=== PATIENT | female | born 1980 | race Caucasian/White ===

== ENCOUNTER 2019-10-13 10:05 | Outpatient (CLI) | payer MEDICAID, SELFPAY ==
--- NOTE | 2019-10-13 10:43 | ECG_ITS ---
Measurements Intervals [place] Rate: 74 P: 28 [place]: 160 QRS: 73 QRSD: 97 T: 34 QT: 375 QTc: 419 SINUS RHYTHM WITH MARKED SINUS ARRHYTHMIA INTERPRETATION BASED ON A DEFAULT AGE OF 40 YEARS Compared to ECG 02/28/2018 17:38:03 No significant changes Electronically Signed On 10-13-2019 17:28:17 [employer]CTION SALES REPRESENTATIVE by Ivan Clay M.D. [email or web address]
[2019-10-13 11:30] LABS: Basophils # 0.1 10^3/uL (0.0-0.1); Basophils % 0.5 %; Eosinophils # 0.3 10^3/uL (0.0-0.8); Hematocrit 41.4 % (37.0-47.0); Hemoglobin 13.8 g/dL (11.5-15.3); Lymphocytes # 4.2 10^3/uL (0.8-4.8); Mean Corpuscular HGB Conc 33.3 g/dL (30.0-36.0); Mean Corpuscular Hemoglobin 31.1 pg (28.0-34.0); Mean Corpuscular Volume 93.2 fL (81-99); Mean Platelet Volume 11.8 fL (7.4-10.4); Monocytes # 0.7 10^3/uL (0.2-0.9); Monocytes % 7.4 %; Neutrophils # 4.5 10^3/uL (1.8-7.7); Neutrophils % 45.8 %; Nucleated Red Blood Cells % 0 %; Platelet Count 203 10^3/cmm (130-400); Red Blood Count 4.44 10^6/uL (4.1-5.3); Red Cell Distribution Width 13.8 % (12.1-15.1); White Blood Count 9.8 10^3/uL (4.0-10.0)
== END 2019-10-13 10:06 | disposition home or self-care (01) ==
LOC: RT 10:09
PROVIDERS: Family Provider Family Medicine; PCP Family Medicine; Visit Provider Specialist
DX: Z01.810 Encounter for preprocedural cardiovascular examination (principal); I49.8 Other specified cardiac arrhythmias
CPT/HCPCS: 36415; 85025; 93005

== ENCOUNTER 2019-10-19 16:58 | Outpatient (CLI) | payer MEDICAID, SELFPAY ==
--- NOTE | 2019-10-19 | XR_ITS ---
WS: [id number] FOOT RIGHT TECHNIQUE: 3 views of the right foot CLINICAL INFORMATION: FOOT PAIN,RIGHT COMPARISON: None. FINDINGS: No evidence of acute fracture or dislocation. Normal tarsal metatarsal alignment. Normal calcaneus. N ormal visualized talar dome. No acute findings. XR/XR foot RT min 3V* [id number] IMPRESSION: Normal right foot.
== END 2019-10-19 16:59 | disposition home or self-care (01) ==
PROVIDERS: Family Provider Family Medicine; PCP Family Medicine; Visit Provider Nurse Practitioner Family
DX: Z76.89 Persons encountering health services in other specified circumstances (principal)

== ENCOUNTER 2020-01-30 10:02 | Outpatient (CLI) | payer MEDICAID, SELFPAY ==
--- NOTE | 2020-01-30 | MR_ITS ---
WS: [id number] MRI HEAD WITH CONTRAST TECHNIQUE: Sagittal T1, T2 axial, T2 axial FLAIR, axial susceptibility weighted imaging, axial diffus ion weighted images, and coronal T2 images were obtained. Pre and post-T1 axial and post T1 coronal i mages. ADC and FSPGR images. CLINICAL INFORMATION: CYST AND MUCOCELE OF NOSE AND NASAL SINUS COMPARISON: CT October 27, [address] FINDINGS: No evidence of restricted diffusion to suggest acute ischemia. Ventricular system and basal cisterns are patent. Incidental slightly low-lying cerebellar tonsils. Normal fourth ventricle. Incidental par tially empty sella. No hemosiderin on the susceptibility weighted images. No suspicious intracranial signal abnormalities. Normal moon-white differentiation. No evidence of ma ss or mass effect. Proximal visualized 7th and 8th cranial nerves appear normal. Normal vascular flow voids at the skull base. Peripheral enhancing well-circumscribed ovoid lesion along the right frontal sinus extending to the f rontal ethmoidal recess most consistent with a mucocele. This measures approximately 1.4 x 0.6 x 1.0 cm (AP by transverse by craniocaudal). Suggestion of mild ostial expansion. Mild mucosal thickening i n the ethmoid air cells. Maxillary sinuses are well aerated. Mastoid air cells are well aerated. No hemosiderin on the susceptibly weighted images. No abnormal intracranial enhancement. Normal optic chiasm and pituitary infundibulum. A few incidenta l intraparotid lymph nodes. Normal visualized dural venous sinuses. MR/MR head wo/w con [id number] IMPRESSION: 1. Well-circumscribed ovoid lesion in the right frontal sinus at the frontal e thmoidal recess with peripheral enhancement and intermediate T2 hyperintensity most consistent with small frontoethmoidal mucocele. This measures approximatel y 1.4 x 0.6 x 1.0 cm AP by transverse by craniocaudal) 2. Mild mucosal thickening in the ethmoid air cells. 3. Paranasal sinuses are otherwise well aerated. 4. Mastoid air cells well aerated. 5. Incidental slightly low-lying cerebellar tonsils. Normal fourth ventricle. 6. No other suspicious intracranial signal abnormalities. 7. Incidental partially empty sella. 8. No abnormal intracranial enhancement.
== END 2020-01-30 10:03 | disposition home or self-care (01) ==
LOC: RADWPI 10:09
PROVIDERS: Family Provider Family Medicine; PCP Family Medicine; Visit Provider Specialist
DX: J34.1 Cyst and mucocele of nose and nasal sinus (principal); J34.89 Other specified disorders of nose and nasal sinuses
CPT/HCPCS: 70553; A9579

== ENCOUNTER 2020-01-31 13:57 | Emergency (ER) | payer MEDICAID, SELFPAY ==
[2020-01-31 14:28] VITALS: BP 141/88; PULSE 84; RESP 16; TEMP 36.6; O2SAT 98; BMI 42.5
[2020-01-31 15:18] LABS: Add Urine Microscopic? NO
[2020-01-31 15:22] LABS: Bilirubin Urine Neg (NEGATIVE); Blood Urine Neg (Negative); Glucose Urine UA Norm (Normal); Ketones Urine Negative (Negative); Leukocyte Esterase Urine Negative (Negative); Nitrate Urine Negative (Negative); Protein Urine Neg (Negative); Urine Appearance Clear (CLEAR); Urine Color Yellow (Yellow); Urobilinogen Urine Norm (Negative); pH Urine 6 (5-7)
[2020-01-31 15:24] LABS: HCG Qualitative Urine. Negative (Negative)
[2020-01-31 15:49] LABS: Basophils # 0.1 10^3/uL (0.0-0.1); Basophils % 0.6 %; Eosinophils # 0.4 10^3/uL (0.0-0.8); Eosinophils % 3.1 %; Hematocrit 46.6 % (37.0-47.0); Lymphocytes # 4.1 10^3/uL (0.8-4.8); Lymphocytes % 34.7 %; Mean Corpuscular HGB Conc 32.2 g/dL (30.0-36.0); Mean Corpuscular Hemoglobin 30.6 pg (28.0-34.0); Mean Corpuscular Volume 95.1 fL (81-99); Mean Platelet Volume 11.6 fL (7.4-10.4); Monocytes # 0.9 10^3/uL (0.2-0.9); Monocytes % 7.8 %; Neutrophils # 6.3 10^3/uL (1.8-7.7); Neutrophils % 53.6 %; Nucleated Red Blood Cells % 0 %; Platelet Count 251 10^3/cmm (130-400); Red Cell Distribution Width 13.6 % (12.1-15.1); White Blood Count 11.7 10^3/uL (4.0-10.0)
[2020-01-31 16:09] LABS: Alanine Aminotransferase 91 U/L (0-33); Albumin Level 4.9 g/dL (3.5-5.2); Alkaline Phosphatase 101 IU/L (35-105); Anion Gap 15.9 (5-19); Aspartate Amino Transferase 66 U/L (0-32); Blood Urea Nitrogen 11 mg/dL (6-20); Calcium 9.8 mg/dL (8.5-10.5); Carbon Dioxide 28 mmol/L (22-29); Chloride 100 mmol/L (98-107); Glomerular Filtration Rate 138.1 mL/min (90-130); Glucose 114 mg/dL (65-115); Lipase 50 U/L (13-60); Osmolality Calculated 287 mOsm/kg (285-295); Potassium 3.9 mmol/L (3.5-5.1); Sodium 140 mmol/L (136-145); Total Bilirubin 0.2 mg/dL (0.15-1.2); Total Protein 7.9 g/dL (6.6-8.7)
== END 2020-01-31 18:06 | disposition left against medical advice (07) ==
LOC: ER 14:12
PROVIDERS: Family Medicine; Emergency Provider Physician Assistant; PCP Family Medicine
DX: Z53.21 Procedure and treatment not carried out due to patient leaving prior to being seen by health care provider (principal)
CPT/HCPCS: 36415; 80053; 81003; 81025; 83690; 85025; 99281; 99282

== ENCOUNTER 2020-02-02 11:53 | Outpatient (CLI) | payer MEDICAID, SELFPAY ==
--- NOTE | 2020-02-02 | CT_ITS ---
WS: [id number] CT ABDOMEN AND PELVIS WITH CONTRAST HISTORY: RLQ PAIN, prior hysterectomy and appendectomy. TECHNIQUE: Imaging performed of the abdomen and pelvis with IV contrast. Single phase imaging of the abdomen. Coronal and sagittal reformats are submitted. All CT scans at [facility] use at least one of these dose optimization techniques: automated exposure control; mA and/or kV adjustment per patient size (includes targeted exams where dose is matched to clinical indication); or iterativ e reconstruction. IV CONTRAST: Omnipaque 300; 95 mL IV. Oral contrast: None. Patient refused. DLP: 1768.58 mGy.cm COMPARISON: 01/09/2018 Lower thorax: Lung bases are clear. Heart is normal size. No hiatal hernia. Liver/biliary system: Marked hepatomegaly and hepatic steatosis. Variable density throughout the live r consistent with hepatic steatosis and areas of sparing. No bile duct dilatation. Portal vein is enh ancing normally. Gallbladder: Normal. No gallstones or wall thickening. No pericholecystic fluid. Pancreas: Normal. Spleen: Normal. Adrenal glands: Normal. Right kidney: Normal. There is a calcification in the retroperitoneum on the RIGHT. Believe this is a ssociated with the gonadal vein and not the ureter. Ureter is small caliber and is posterior to the v ein. Left kidney: Normal. Aorta: Normal. Lymphadenopathy: None. Free fluid: None. GI tract: Prior appendectomy. Abdominal wall: Unremarkable abdominal wall. No hernia. Pelvis: Normal. Bones: Unremarkable. CT/CT abdomen pelvis w con* [id number] IMPRESSION: 1. Prior appendectomy and hysterectomy. 2. Marked hepatomegaly and hepatic steatosis. 3. No renal obstruction.
[2020-02-02] MEDS: iohexol 300 mg/mL 100 mL Btl IV (14:15)
== END 2020-02-02 11:54 | disposition home or self-care (01) ==
PROVIDERS: PCP Family Medicine; Visit Provider Nurse Practitioner Family
DX: R10.31 Right lower quadrant pain (principal); R16.0 Hepatomegaly, not elsewhere classified; K76.0 Fatty (change of) liver, not elsewhere classified
CPT/HCPCS: 74177

== ENCOUNTER 2020-02-10 17:27 | Emergency (ER) | payer MEDICAID, SELFPAY ==
[2020-02-10 17:35] VITALS: BP 146/94; PULSE 91; RESP 14; TEMP 36.7; O2SAT 97; BMI 42.8
--- NOTE | 2020-02-10 17:44 | ED_ITS ---
HPI - Abdominal Pain General: Chief Complaint: Abdominal Pain Stated Complaint: abd pain Time Seen by Provider: 02/10/20 17:41 History of Present Illness: HPI narrative: Patient is a 39-year-old female who comes to the ED for abdominal pain. Patient has a past surgical history of a hysterectomy and appendectomy. Patient says that abdominal pain started about 2 weeks ago. Patient recently had a CT done back on February 01 and the report showed Marked hepatomegaly and hepatic steatosis. Patient describes pain as a burning sensation that is located in the right lower quadrant. Abdominal pain continues to progress since it started 2 weeks ago. She rates the pain currently a 7 out of 10. She states pain gets worse when she gets up and moves around. She has taken hydrocodone and naproxen to try to help with pain she says it has not provided any relief. Patient denies any fever, chills, nausea, vomiting, cough, chest pain, shortness of breath, change in stool, constipation, diarrhea, blood in stool, dysuria, hematuria, vaginal discharge. Associated Symptoms: Denies chills, constipation, diarrhea, dysuria, fever(s), hematochezia, hematuria, nausea and vomiting Review of Systems Const: Denies: fever(s), chills or fatigue Eyes: Denies: change in vision or eye discomfort ENMT: Denies: throat pain, odynophagia, nasal discharge or nasal congestion Card: Denies: chest pain, palpitations, edema, swelling of feet/ankles, dyspnea on exertion or orthopnea Resp: Denies: dyspnea, productive cough or non-productive cough GI: Reports: abdominal pain (RLQ); Denies: nausea, vomiting, diarrhea, constipation or hematochezia : Denies: flank pain, dysuria or hematuria Musc: Denies: neck pain, back pain or extremity swelling Skin/Breast: Denies: rash or new lesions Neuro: Denies: headache(s), numbness in extremities or weakness in extremities PFSH ED PFSH: Social History Smoking and tobacco status: current every day smoker Physical Exam Const: COMMON NORMALS: no acute distress, patient oriented x3 and alert GENERAL APPEARANCE: cooperative and comfortable HENMT: COMMON NORMALS: normocephalic HEAD & SCALP: normocephalic MOUTH: Normal oral and palatal mucosa present THROAT: posterior oropharynx normal and uvula midline Eye: COMMON NORMALS: Equal, round and reactive pupils present PUPIL: Yes Equal, round and reactive pupils present Neck/C-Spine: COMMON NORMALS: supple GENERAL: Yes normal visual inspection Resp: COMMON NORMALS: normal respiratory effort, No retractions, No use of accessory muscles and clear to auscultation bilaterally AUSCULTATION: clear to auscultation bilaterally Cardio: COMMON NORMALS: regular rate, regular rhythm, S1 normal heart sound present, S2 normal heart sound present, No gallops present (Cardio), No clicks present (Cardio), No murmurs present (Cardio) and Peripheral pulses 2+ throughout RATE: regular rate RHYTHM: regular rhythm HEART SOUNDS: S1 normal heart sound present and S2 normal heart sound present PERIPHERAL PULSES: Peripheral pulses 2+ throughout GI: COMMON NORMALS: Normal to inspection, nondistended, normoactive bowel sounds present, Soft to palpation and no masses INSPECTION: Yes central obesity AUSCULTATION: Yes normoactive bowel sounds PALPATION: Yes Soft to palpation and Yes Tenderness to palpation present (GI) Details: RLQ (mcburney's point tenderness, with no rebound tenderness. ) OTHER: Negative Irene sign. No epigastric tenderness. : COMMON NORMALS: Yes no CVA tenderness BLADDER/KIDNEY EXAM: Yes no CVA tenderness Back/Pelvis: COMMON NORMALS: no CVA tenderness Extremity: COMMON NORMALS: normal to inspection, capillary refill normal and no pedal edema Neuro: COMMON NORMALS: patient oriented x3 SENSORIUM/ORIENTATION: Yes alert GAIT: Yes Normal gait present Skin: COMMON NORMALS: no rashes or lesions noted GENERAL SKIN EXAM: no rashes or lesions noted and dry skin Course Vital Signs: Vital signs: Vital Signs Temperature 98.1 F 02/10/20 17:35 Pulse Rate 87 02/10/20 22:23 Respiratory Rate 18 02/10/20 22:23 Blood Pressure 148/74 02/10/20 22:23 Pulse Oximetry 98 02/10/20 22:23 MDM - Abdominal Pain MDM Narrative: Medical decision making narrative: Patient is a 39-year-old female comes to the ED with right lower quadrant pain. Patient has a surgical history of an appendectomy and hysterectomy. White blood cell count was 11.4 and CMP, lipase and urinalysis were unremarkable. CT of the abdomen showed no acute findings but noted the liver. Patient was told to follow-up with PCP in 7 days for reevaluation. Patient can return to ED if symptoms worsen. Patient understood and agreed with plan. Lab Data: Attestation: I reviewed the patient's lab results. Labs: Lab Results 02/10/20 02/10/20 02/10/20 Range/Units 17:53 17:53 17:53 WBC 11.4 H (4.0-10.0) 10^3/ uL RBC 4.67 (4.1-5.3) 10^6/u L Hgb 14.5 (11.5-15.3) g/dL Hct 44.2 (37.0-47.0) % MCV 94.6 (81-99) fL MCH 31.0 (28.0-34.0) pg MCHC 32.8 (30.0-36.0) g/dL RDW 13.4 (12.1-15.1) % Plt Count 265 (130-400) 10^3/c mm MPV 11.8 H (7.4-10.4) fL Neut % (Auto) 50.5 % Lymph % (Auto) 38.3 % [place] % (Auto) 7.3 % Eos % (Auto) 3.1 % Baso % (Auto) 0.5 % Neut # (Auto) 5.8 (1.8-7.7) 10^3/u L Lymph # (Auto) 4.4 (0.8-4.8) 10^3/u L [place] # (Auto) 0.8 (0.2-0.9) 10^3/u L Eos # (Auto) 0.4 (0.0-0.8) 10^3/u L Baso # (Auto) 0.1 (0.0-0.1) 10^3/u L Nucleated RBC % (a uto) 0 % Nucleated RBCs # 0.0 /100WBC Sodium 140 (136-145) mmol/L Potassium 4.1 (3.5-5.1) mmol/L Chloride 98 (98-107) mmol/L Carbon Dioxide 26 (22-29) mmol/L Anion Gap 20.1 H (5-19) BUN 8 (6-20) mg/dL Creatinine 0.5 (0.5-0.9) mg/dL GFR Calculation 138.1 H (90-130) mL/min Glucose 111 (65-115) mg/dL Calculated Osmolal ity 287 (285-295) mOsm/k g Calcium 9.5 (8.5-10.5) mg/dL Total Bilirubin 0.2 (0.15-1.2) mg/dL AST 55 H (0-32) U/L ALT 86 H (0-33) U/L Alkaline Phosphata se 98 (35-105) IU/L Total Protein 7.5 (6.6-8.7) g/dL Albumin 4.9 (3.5-5.2) g/dL Globulin 2.6 (1.3-4.6) g/dL Lipase 49 (13-60) U/L HCG, Qual Negative (Negative) Urine Color (Yellow) Urine Appearance (CLEAR) Urine pH (5-7) Ur Specific Gravit y (1.005-1.030) Urine Protein (Negative) Urine Glucose (UA) (Normal) Urine Ketones (Negative) Urine Blood (Negative) Urine Nitrate (Negative) Urine Bilirubin (NEGATIVE) Urine Urobilinogen (Negative) mg/dL Ur Leukocyte Cecy ase (Negative) Urine RBC (0-2) /hpf Urine WBC (0-5) /hpf Ur Squamous Epith Cells (0-5) Ur Transition Epit h Cell /hpf Urine Bacteria (NONE) Urine Yeast 02/10/20 Range/Units 18:56 WBC (4.0-10.0) 10^3/ uL RBC (4.1-5.3) 10^6/u L Hgb (11.5-15.3) g/dL Hct (37.0-47.0) % MCV (81-99) fL MCH (28.0-34.0) pg MCHC (30.0-36.0) g/dL RDW (12.1-15.1) % Plt Count (130-400) 10^3/c mm MPV (7.4-10.4) fL Neut % (Auto) % Lymph % (Auto) % [place] % (Auto) % Eos % (Auto) % Baso % (Auto) % Neut # (Auto) (1.8-7.7) 10^3/u L Lymph # (Auto) (0.8-4.8) 10^3/u L [place] # (Auto) (0.2-0.9) 10^3/u L Eos # (Auto) (0.0-0.8) 10^3/u L Baso # (Auto) (0.0-0.1) 10^3/u L Nucleated RBC % (a uto) % Nucleated RBCs # /100WBC Sodium (136-145) mmol/L Potassium (3.5-5.1) mmol/L Chloride (98-107) mmol/L Carbon Dioxide (22-29) mmol/L Anion Gap (5-19) BUN (6-20) mg/dL Creatinine (0.5-0.9) mg/dL GFR Calculation (90-130) mL/min Glucose (65-115) mg/dL Calculated Osmolal ity (285-295) mOsm/k g Calcium (8.5-10.5) mg/dL Total Bilirubin (0.15-1.2) mg/dL AST (0-32) U/L ALT (0-33) U/L Alkaline Phosphata se (35-105) IU/L Total Protein (6.6-8.7) g/dL Albumin (3.5-5.2) g/dL Globulin (1.3-4.6) g/dL Lipase (13-60) U/L HCG, Qual (Negative) Urine Color Yellow (Yellow) Urine Appearance Hazy A (CLEAR) Urine pH 6.5 (5-7) Ur Specific Gravit y 1.015 (1.005-1.030) Urine Protein Neg (Negative) Urine Glucose (UA) Norm (Normal) Urine Ketones Negative (Negative) Urine Blood Neg (Negative) Urine Nitrate Negative (Negative) Urine Bilirubin Neg (NEGATIVE) Urine Urobilinogen Norm (Negative) mg/dL Ur Leukocyte Cecy ase Negative (Negative) Urine RBC 0-4 H (0-2) /hpf Urine WBC None (0-5) /hpf Ur Squamous Epith Cells 15-25 H (0-5) Ur Transition Epit h Cell 0-4 /hpf Urine Bacteria 1+ H (NONE) Urine Yeast 1+ H Imaging Data ^: CT Abd/Pel: Attestation: I personally reviewed and interpreted this imaging study as follows: Radiologist's impression: [address] [address] [address] Scan Report Signed Patient: Marlene Schroeder Unit #: [id number] : 1980 Age/Sex: 39 / F ADM Date: 02/10/20 Loc: ER Room/Bed: Attending Dr: Ordering Provider/Ordering MD: Jori Jordan Date of Service: 02/10/20 Procedure(s): CT abdomen pelvis w con* [id number] Accession Number(s): [id number] Report Number: [id number] PROCEDURE INFORMATION: Exam: CT Abdomen And Pelvis With Contrast Exam date and time: 02/10/2020 7:39 PM Age: 39 years old Clinical indication: Abdominal pain; Localized; Right lower quadrant (rlq); Prior surgery; Surgery type: Hysto, appy; Additional info: Rlq abdominal pain TECHNIQUE: Imaging protocol: Computed tomography of the abdomen and pelvis with intravenous contrast. Radiation optimization: All CT scans at this facility use at least one of these dose optimization techniques: automated exposure control; mA and/or kV adjustment per patient size (includes targeted exams where dose is matched to clinical indication); or iterative reconstruction. Contrast material: OMNI 300; Contrast volume: 95 ml; Contrast route: IV; COMPARISON: CT abdomen pelvis w con* [id number] 02/02/2020 2:06 PM RADIATION DOSE METRICS: Total DLP: 1895.55 mGy-cm FINDINGS: Liver: Geographic fatty infiltration of the liver. Multiple subcentimeter nodular densities in the right liver lobe are unchanged. Gallbladder and bile ducts: Normal. No calcified stones. No ductal dilation. Pancreas: Normal. No ductal dilation. Spleen: Normal size spleen with splenules. Adrenals: Normal. No mass. Kidneys and ureters: Normal. No hydronephrosis. Stomach and bowel: Unremarkable. No obstruction. No mucosal thickening. Appendix: The appendix is not visualized. No secondary signs of appendicitis. Intraperitoneal space: Unremarkable. No free air. No significant fluid collection. Vasculature: Unremarkable. No abdominal aortic aneurysm. Lymph nodes: Subcentimeter retroperitoneal lymph nodes are most likely reactive. Bladder: Unremarkable as visualized. Reproductive: The uterus and left ovary are absent. Probable retained small right ovary. Bones/joints: Unremarkable. No acute fracture. Soft tissues: Unremarkable. CT/CT abdomen pelvis w con* [id number] IMPRESSION: 1. No acute abnormality identified in the abdomen or pelvis. 2. Subcentimeter nodules in the right liver lobe are too small to characterize but most likely benign in this age group. In a low-risk patient, this lesion is most likely to be benign and no further follow-up is recommended. In a high-risk patient, recommend follow-up MRI in 3-6 months (or earlier if warranted by the patient's specific clinical circumstances). 3. Geographic fatty infiltration of the liver. Radiation Dose CTDIVOL = (mGy): DLP = 1895.55 (mGy-cm) Dictated By: Patrice Hardy Signed By: Patrice Hardy Signed Date/Time: 02/10/202041 DD/ 39 Discharge Plan Discharge Patient Disposition: Home, Self-Care Clinical Impression: Abdominal pain, RLQ Condition: Stable Prescriptions: No Action meloxicam 7.5 mg tablet 7.5 mg PO DAILY Qty: 30 RF: 3 quetiapine 25 mg tablet See Rx Instructions .ROUTE .COMPLEX RF: 0 hydrocodone-acetaminophen 10-325 mg tablet 1 tab PO TID PRN (Reason: Pain) RF: 0 tramadol 50 mg tablet See Rx Instructions .ROUTE .COMPLEX RF: 0 naproxen 500 mg Tablet,Delayed Release (Dr/Ec) 500 mg PO BID PRN (Reason: Pain) RF: 0 furosemide 20 mg tablet 20 mg PO PRN PRN (Reason: Edema) RF: 0 ProAir HFA 90 mcg/actuation HFA aerosol inhaler 1 - 2 puff INHALATION Q4H PRN (Reason: Shortness Of Breath) RF: 0 Premarin 0.3 mg tablet 0.3 mg PO DAILY RF: 0 aripiprazole 10 mg tablet 10 mg PO DAILY RF: 0 levocetirizine 5 mg tablet 5 mg PO DAILY RF: 0 desvenlafaxine succinate 50 mg tablet extended release 24 hr 50 mg PO DAILY RF: 0 28-800 mg-mcg Tablet 1 tab PO DAILY RF: 0 Discharge Orders: Discharge Order (Routine); Ordered 02/10/20 Ordered By: Jori Jordan Referrals: Sage Mckeon MD [Primary Care Provider] - Discharge Diet: Regular Discharge Activity: Increase activity as tolerated Patient Instructions: Abdominal Pain (ED) Activity Restrictions/Additional Instructions: Follow-up with your PCP in 5 to 7 days for reevaluation. Take Tylenol or ibuprofen to help with pain. Drink plenty of fluids and stay hydrated. Discharge Date/Time: 02/10/20 22:24 Coding Level of Care Code ED Knot Tier for Mindi Fwd Exam Comprehensive
[2020-02-10 18:07] LABS: Basophils # 0.1 10^3/uL (0.0-0.1); Basophils % 0.5 %; Eosinophils # 0.4 10^3/uL (0.0-0.8); Eosinophils % 3.1 %; Hematocrit 44.2 % (37.0-47.0); Hemoglobin 14.5 g/dL (11.5-15.3); Lymphocytes # 4.4 10^3/uL (0.8-4.8); Lymphocytes % 38.3 %; Mean Corpuscular HGB Conc 32.8 g/dL (30.0-36.0); Mean Corpuscular Volume 94.6 fL (81-99); Mean Platelet Volume 11.8 fL (7.4-10.4); Monocytes # 0.8 10^3/uL (0.2-0.9); Monocytes % 7.3 %; Neutrophils # 5.8 10^3/uL (1.8-7.7); Neutrophils % 50.5 %; Nucleated Red Blood Cells % 0 %; Platelet Count 265 10^3/cmm (130-400); Red Blood Count 4.67 10^6/uL (4.1-5.3); Red Cell Distribution Width 13.4 % (12.1-15.1); White Blood Count 11.4 10^3/uL (4.0-10.0)
[2020-02-10 18:24] LABS: HCG, Serum Qual Negative (Negative)
[2020-02-10] MEDS: metoclopramide 5 mg/mL SDV 2 mL 10 MG IVP (19:06)
[2020-02-10 19:08] VITALS: RESP 18; O2SAT 98
[2020-02-10] MEDS: morphine 4 mg/mL SDV 1 mL IVP ×2 (19:08→20:07)
[2020-02-10] MEDS: sodium chloride 0.9% 1,000 ML 999 ML IV (19:09)
[2020-02-10 19:14] LABS: Alanine Aminotransferase 86 U/L (0-33); Albumin Level 4.9 g/dL (3.5-5.2); Alkaline Phosphatase 98 IU/L (35-105); Anion Gap 20.1 (5-19); Aspartate Amino Transferase 55 U/L (0-32); Blood Urea Nitrogen 8 mg/dL (6-20); Calcium 9.5 mg/dL (8.5-10.5); Carbon Dioxide 26 mmol/L (22-29); Chloride 98 mmol/L (98-107); Globulin 2.6 g/dL (1.3-4.6); Glomerular Filtration Rate 138.1 mL/min (90-130); Glucose 111 mg/dL (65-115); Lipase 49 U/L (13-60); Osmolality Calculated 287 mOsm/kg (285-295); Potassium 4.1 mmol/L (3.5-5.1); Sodium 140 mmol/L (136-145); Total Bilirubin 0.2 mg/dL (0.15-1.2); Total Protein 7.5 g/dL (6.6-8.7)
--- NOTE | 2020-02-10 19:30 | CTR_ITS ---
PROCEDURE INFORMATION: Exam: CT Abdomen And Pelvis With Contrast Exam date and time: 02/10/2020 7:39 PM Age: 39 years old Clinical indication: Abdominal pain; Localized; Right lower quadrant (rlq); Prior surgery; Surgery type: Hysto, appy; Additional info: Rlq abdominal pain TECHNIQUE: Imaging protocol: Computed tomography of the abdomen and pelvis with intravenous contrast. Radiation optimization: All CT scans at this facility use at least one of these dose optimization techniques: automated exposure control; mA and/or kV adjustment per patient size (includes targeted exams where dose is matched to clinical indication); or iterative reconstruction. Contrast material: OMNI 300; Contrast volume: 95 ml; Contrast route: IV; COMPARISON: CT abdomen pelvis w con* [id number] 02/02/2020 2:06 PM RADIATION DOSE METRICS: Total DLP: 1895.55 mGy-cm FINDINGS: Liver: Geographic fatty infiltration of the liver. Multiple subcentimeter nodular densities in the right liver lobe are unchanged. Gallbladder and bile ducts: Normal. No calcified stones. No ductal dilation. Pancreas: Normal. No ductal dilation. Spleen: Normal size spleen with splenules. Adrenals: Normal. No mass. Kidneys and ureters: Normal. No hydronephrosis. Stomach and bowel: Unremarkable. No obstruction. No mucosal thickening. Appendix: The appendix is not visualized. No secondary signs of appendicitis. Intraperitoneal space: Unremarkable. No free air. No significant fluid collection. Vasculature: Unremarkable. No abdominal aortic aneurysm. Lymph nodes: Subcentimeter retroperitoneal lymph nodes are most likely reactive. Bladder: Unremarkable as visualized. Reproductive: The uterus and left ovary are absent. Probable retained small right ovary. Bones/joints: Unremarkable. No acute fracture. Soft tissues: Unremarkable. CT/CT abdomen pelvis w con* [id number] IMPRESSION: 1. No acute abnormality identified in the abdomen or pelvis. 2. Subcentimeter nodules in the right liver lobe are too small to characterize but most likely benign in this age group. In a low-risk patient, this lesion is most likely to be benign and no further follow-up is recommended. In a high-risk patient, recommend follow-up MRI in 3-6 months (or earlier if warranted by the patient's specific clinical circumstances). 3. Geographic fatty infiltration of the liver. Radiation Dose CTDIVOL = (mGy): DLP = 1895.55 (mGy-cm)
[2020-02-10 19:55] LABS: Bilirubin Urine Neg (NEGATIVE); Blood Urine Neg (Negative); Glucose Urine UA Norm (Normal); Ketones Urine Negative (Negative); Leukocyte Esterase Urine Negative (Negative); Nitrate Urine Negative (Negative); Protein Urine Neg (Negative); Specific Gravity, Urine 1.015 (1.005-1.030); Urine Appearance Hazy (CLEAR); Urine Color Yellow (Yellow); Urobilinogen Urine Norm (Negative); pH Urine 6.5 (5-7)
[2020-02-10 19:56] LABS: Add Urine Culture? No; Bacteria Urine 1+; RBC Urine 0-4 /hpf (0-2); Squamous Epithelial Cell Urine 15-25 (0-5); Transitional Epi Cells Urine 0-4 /hpf
[2020-02-10 20:07] VITALS: RESP 18; O2SAT 98
[2020-02-10] MEDS: iohexol 300 mg/mL 100 mL Btl IV (20:21)
[2020-02-10 22:23] VITALS: BP 148/74; PULSE 87; RESP 18; O2SAT 98
== END 2020-02-10 22:24 | disposition home or self-care (01) ==
PROVIDERS: Emergency Provider Physician Assistant; PCP Family Medicine
DX: R10.31 Right lower quadrant pain (principal); F17.210 Nicotine dependence, cigarettes, uncomplicated
CPT/HCPCS: 12345; 74177; 80053; 81001; 83690; 84703; 85025; 96361; 96374; 96375; 96376; 99282; 99283; J2270; J2765; J7030; Q9967

== ENCOUNTER 2020-07-20 12:23 | Outpatient (CLI) | payer MEDICAID, SELFPAY ==
--- NOTE | 2020-07-20 12:28 | CT_ITS ---
WS: [id number] CT ABDOMEN PELVIS TECHNIQUE: Contrast-enhanced CT of the abdomen and pelvis with coronal and sagittal reformatted image s. CLINICAL INFORMATION: RECTAL BLEEDING, PINKY LOWER QUADRANT ABD PAIN COMPARISON: CT February 10, 2020 DLP: 1133.[address] scans at [facility] use at least one of these dose optimization techniques: automat ed exposure control; mA and/or kV adjustment per patient size (includes targeted exams where dose is matched to clinical indication); or iterative reconstruction. FINDINGS: Hepatomegaly. Diffuse fatty infiltration liver. Normal portal vein and splenic vein. No suspicious he patic lesions are visualized today. Normal parenchymal enhancement. Lung bases are well aerated. Panc reas appears normal. Small splenule. Normal spleen. Normal GE junction. Adrenal glands are normal. No rmal renal parenchymal enhancement. No hydronephrosis. A few sigmoid diverticuli. No evidence of diverticulitis. No free fluid in the abdomen or pelvis. Nor mal caliber abdominal aorta. Retroaortic left renal vein. No periaortic lymphadenopathy. No pelvic or inguinal lymphadenopathy.Prior postoperative changes hysterectomy. Prior postoperative appendectomy. Normal lumbar spine. CT/CT abdomen pelvis w con* [id number] IMPRESSION: 1. Hepatomegaly with diffuse fatty infiltration of the liver. No suspicious he patic lesions today. 2. Normal caliber abdominal aorta. 3. A few sigmoid diverticuli. No evidence of acute diverticulitis. 4. No evidence of small or large bowel obstruction. 5. No free fluid in the abdomen or pelvis. 6. No hydronephrosis in either kidney. 7. No abdominal or pelvic lymphadenopathy. 8. Tiny fat-containing umbilical hernia.. 9. Prior hysterectomy and appendectomy.
[2020-07-20] MEDS: iohexol 300 mg/mL 50 mL Btl PO (13:25)
[2020-07-20] MEDS: iohexol 300 mg/mL 100 mL Btl IV (14:11)
== END 2020-07-20 12:24 | disposition home or self-care (01) ==
LOC: RADWPI 12:26
PROVIDERS: PCP Family Medicine; Visit Provider Family Medicine
DX: K62.5 Hemorrhage of anus and rectum (principal); R10.31 Right lower quadrant pain; R10.32 Left lower quadrant pain; R16.0 Hepatomegaly, not elsewhere classified; K76.0 Fatty (change of) liver, not elsewhere classified; K57.30 Diverticulosis of large intestine without perforation or abscess without bleeding; K42.9 Umbilical hernia without obstruction or gangrene; Z90.710 Acquired absence of both cervix and uterus; Q42.8 Congenital absence, atresia and stenosis of other parts of large intestine
CPT/HCPCS: 74177; Q9967

== ENCOUNTER 2020-07-29 18:43 | Emergency (ER) | payer MEDICAID, SELFPAY ==
[2020-07-29 18:48] VITALS: BP 163/107; PULSE 83; RESP 16; TEMP 36.3; O2SAT 98; BMI 40.5
--- NOTE | 2020-07-29 20:23 | ED_ITS ---
HPI - Abdominal Pain General: Chief Complaint: Abdominal Pain Stated Complaint: lower abd pain Time Seen by Provider: 07/29/20 20:10 Source: patient Mode of arrival: ambulatory Limitations: no limitations History of Present Illness: HPI narrative: 39-year-old female states has been having lower abdominal pain over the last 2 weeks along with bloody bowel movements. She states she has not had a bloody bowel movement in the last 3 days. She had a CT scan last week that showed no acute findings. She is scheduled in [address] Tariq of surgery. She states she has had increasing pain over the last 2 days sharp in nature and rates it a 8 out of 10. States it is worse with movement. Associated Symptoms: Denies chills, dysuria and fever(s) Review of Systems Const: Denies: fever(s), chills, body aches or change in appetite Eyes: Denies: blurry vision or eye discomfort ENMT: Denies: throat pain or dental pain Card: Denies: chest pain Resp: Denies: dyspnea GI: Reports: abdominal pain : Denies: dysuria Musc: Denies: neck pain or back pain Skin/Breast: Denies: rash Neuro: Denies: headache(s) Psych: Denies: depression Malik/Lymph: Denies: easy bruising All/Imm: Denies: urticaria PFSH ED PFSH: Social History Smoking and tobacco status: current every day smoker Physical Exam Const: COMMON NORMALS: no acute distress, patient oriented x3 and healthy appearing HENMT: COMMON NORMALS: normocephalic and atraumatic HEAD & SCALP: normocephalic and atraumatic Eye: COMMON NORMALS: Equal, round and reactive pupils present and EOMs intact bilaterally PUPIL: Yes Equal, round and reactive pupils present Neck/C-Spine: COMMON NORMALS: full ROM and supple Chest: COMMONS NORMALS: normal inspection of the chest and normal palpation of entire chest wall Resp: COMMON NORMALS: normal respiratory effort, No retractions, No use of accessory muscles and clear to auscultation bilaterally AUSCULTATION: clear to auscultation bilaterally Cardio: COMMON NORMALS: regular rate, regular rhythm and No murmurs present (Cardio) RATE: regular rate RHYTHM: regular rhythm GI: COMMON NORMALS: Normal to inspection, nondistended, normoactive bowel sounds present, Soft to palpation and no masses PALPATION: Yes Soft to palpation and Yes Tenderness to palpation present (GI) Details: RLQ Extremity: COMMON NORMALS: normal to inspection and full ROM Neuro: COMMON NORMALS: patient oriented x3, moves all extremities and no focal motor deficits Psych: COMMON NORMALS: mental status grossly normal, Normal thought process present and cooperative THOUGHT PROCESS: Normal thought process present Skin: COMMON NORMALS: no rashes or lesions noted and no wounds GENERAL SKIN EXAM: no rashes or lesions noted Course Vital Signs: Vital signs: Vital Signs Temperature 97.3 F L 07/29/20 18:48 Pulse Rate 83 07/29/20 18:48 Respiratory Rate 17 07/29/20 22:10 Blood Pressure 163/107 07/29/20 18:48 Pulse Oximetry 98 07/29/20 18:48 MDM - Abdominal Pain MDM Narrative: Medical decision making narrative: Marlene presents here with abdominal pain that been going on for weeks. She is well-appearing here her pain is improved. CT scan shows an enteritis with no acute findings. Patient's blood work here is normal as well. She has no bloody stools here and her blood count is normal. We will place her on Bentyl along with Phenergan and she is to follow-up with Dr. Tariq in 5 days for her colonoscopy. She is to return if worsening. She understands and agrees to plan. Lab Data: Labs: Lab Results 07/29/20 07/29/20 07/29/20 Range/Units 20:44 20:55 20:55 WBC 12.1 H (4.0-10.0) 10^3/ uL RBC 5.08 (4.1-5.3) 10^6/u L Hgb 15.6 H (11.5-15.3) g/dL Hct 47.7 H (37.0-47.0) % MCV 93.9 (81-99) fL MCH 30.7 (28.0-34.0) pg MCHC 32.7 (30.0-36.0) g/dL RDW 13.9 (12.1-15.1) % Plt Count 262 (130-400) 10^3/c mm MPV 11.8 H (7.4-10.4) fL Neut % (Auto) 54.3 % Lymph % (Auto) 35.8 % [place] % (Auto) 7.2 % Eos % (Auto) 2.1 % Baso % (Auto) 0.4 % Neut # (Auto) 6.58 (1.8-7.7) 10^3/u L Lymph # (Auto) 4.3 (0.8-4.8) 10^3/u L [place] # (Auto) 0.9 (0.2-0.9) 10^3/u L Eos # (Auto) 0.3 (0.0-0.8) 10^3/u L Baso # (Auto) 0.1 (0.0-0.1) 10^3/u L Nucleated RBC % (a uto) 0 % Nucleated RBCs # 0.0 /100WBC Sodium 140 (136-145) mmol/L Potassium 4.0 (3.5-5.1) mmol/L Chloride 103 (98-107) mmol/L Carbon Dioxide 28 (22-29) mmol/L Anion Gap 13.0 (5-19) BUN 11 (6-20) mg/dL Creatinine 0.6 (0.5-0.9) mg/dL GFR Calculation 111.9 (90-130) mL/min Glucose 109 (65-115) mg/dL Calculated Osmolal ity 290 (285-295) mOsm/k g Calcium 9.7 (8.5-10.5) mg/dL Total Bilirubin 0.2 (0.15-1.2) mg/dL AST 36 H (0-32) U/L ALT 50 H (0-33) U/L Alkaline Phosphata se 88 (35-105) IU/L Total Protein 7.6 (6.6-8.7) g/dL Albumin 4.6 (3.5-5.2) g/dL Globulin 3.0 (1.3-4.6) g/dL Lipase 39 (13-60) U/L Urine Color Yellow (Yellow) Urine Appearance Clear (CLEAR) Urine pH 6.0 (5-7) Ur Specific Gravit y 1.020 (1.005-1.030) Urine Protein 1+ H (Negative) Urine Glucose (UA) Norm (Normal) Urine Ketones Negative (Negative) Urine Blood 2+ H (Negative) Urine Nitrate Negative (Negative) Urine Bilirubin Neg (Negative) Urine Urobilinogen Norm (Negative) mg/dL Ur Leukocyte Cecy ase Negative (Negative) Urine RBC 0-4 H (0-2) /hpf Urine WBC 0-4 H (0-5) /hpf Ur Squamous Epith Cells 10-15 H (0-5) /hpf Amorphous Sediment Not Reportable Urine Bacteria 1+ H (NONE) /hpf Urine Mucus 2+ /hpf Imaging Data ^: CT Abd/Pel: Radiologist's impression: [address] [address] [address] Scan Report Signed Patient: Marlene Schroeder Unit #: [id number] : 1980 Age/Sex: 39 / F ADM Date: 07/29/20 Loc: ER Room/Bed: Attending Dr: Ordering Provider/Ordering MD: Satish Mitchell MD Date of Service: 07/29/20 Procedure(s): CT abdomen pelvis w con* [id number] Accession Number(s): [id number] Report Number: [id number] PROCEDURE INFORMATION: Exam: CT Abdomen And Pelvis With Contrast Exam date and time: 07/29/2020 9:20 PM Age: 39 years old Clinical indication: Other: Blood in stool; Abdominal pain; Localized; Lower; Prior surgery; Surgery type: Hyst, adhesions, appy; Additional info: Abd pain TECHNIQUE: Imaging protocol: Computed tomography of the abdomen and pelvis with intravenous contrast. Radiation optimization: All CT scans at this facility use at least one of these dose optimization techniques: automated exposure control; mA and/or kV adjustment per patient size (includes targeted exams where dose is matched to clinical indication); or iterative reconstruction. Contrast material: OMNI 300; Contrast volume: 95 ml; Contrast route: INTRAVENOUS (IV); COMPARISON: CT abdomen pelvis w con* [id number] 07/20/2020 2:07 PM RADIATION DOSE METRICS: Total DLP (mGy-cm): 1564.21 FINDINGS: Liver: Hepatic steatosis. Gallbladder and bile ducts: Normal. No calcified stones. No ductal dilation. Pancreas: Normal. No ductal dilation. Spleen: Normal. No splenomegaly. Adrenal glands: Normal. No mass. Kidneys and ureters: Normal. No hydronephrosis. Stomach and bowel: Prominent fluid in the small bowel suggestive of an enteritis in the appropriate clinical setting. Appendix: No evidence of appendicitis. Intraperitoneal space: Unremarkable. No free air. No significant fluid collection. Vasculature: Unremarkable. No abdominal aortic aneurysm. Lymph nodes: Unremarkable. No enlarged lymph nodes. Urinary bladder: Unremarkable as visualized. Reproductive: Unremarkable as visualized. Bones/joints: Unremarkable. No acute fracture. Soft tissues: Unremarkable. CT/CT abdomen pelvis w con* [id number] IMPRESSION: 1. Prominent fluid in the small bowel suggestive of an enteritis in the appropriate clinical setting. 2. Hepatic steatosis. Discharge Plan Discharge Patient Disposition: Home Clinical Impression: Abdominal pain Qualifiers: Abdominal location: generalized Qualified Code(s): R10.84 - Generalized abdominal pain Condition: Stable Prescriptions: New dicyclomine 20 mg tablet 20 mg PO TID PRN (Reason: abdominal pain) Qty: 20 RF: 0 promethazine 25 mg tablet 25 mg PO TID PRN (Reason: nausea and vomiting) Qty: 20 RF: 0 No Action meloxicam 7.5 mg tablet 7.5 mg PO DAILY Qty: 30 RF: 3 hydrocodone-acetaminophen 10-325 mg tablet 1 tab PO TID PRN (Reason: Pain) RF: 0 tramadol 50 mg tablet See Rx Instructions .ROUTE .COMPLEX RF: 0 naproxen 500 mg Tablet,Delayed Release (Dr/Ec) 500 mg PO BID PRN (Reason: Pain) RF: 0 furosemide 20 mg tablet 20 mg PO PRN PRN (Reason: Edema) RF: 0 albuterol sulfate [ProAir HFA] 90 mcg/actuation HFA aerosol inhaler 1 - 2 puff INHALATION Q4H PRN (Reason: Shortness Of Breath) RF: 0 Premarin 0.3 mg tablet 0.3 mg PO DAILY RF: 0 levocetirizine 5 mg tablet 5 mg PO DAILY RF: 0 cetirizine 10 mg tablet 10 mg PO DAILY RF: 0 DOK 100 mg capsule 200 mg PO BEDTIME RF: 0 azelastine 137 mcg (0.1 %) aerosol,spray See Rx Instructions .ROUTE .COMPLEX RF: 0 potassium chloride 1 tab PO DAILY RF: 0 vitamin E 1 tab PO DAILY RF: 0 Discharge Orders: Discharge Order (Routine); Ordered 07/29/20 Ordered By: Korby Stephen Referrals: Sage Mckeon MD [Primary Care Provider] - 1-3 days Discharge Diet: Advance as tolerated Discharge Activity: Resume usual activity Patient Instructions: Abdominal Pain (ED) Coding Level of Care Code ED Steam Brush Operator for Chg Fwd Exam Comprehensive
[2020-07-29] MEDS: promethazine 25 mg/mL SDV 1 mL IM (20:40)
[2020-07-29 20:54] VITALS: RESP 17
[2020-07-29] MEDS: morphine 4 mg/mL SDV 1 mL IVP (20:54)
[2020-07-29 21:17] LABS: Basophils # 0.1 10^3/uL (0.0-0.1); Basophils % 0.4 %; Eosinophils # 0.3 10^3/uL (0.0-0.8); Eosinophils % 2.1 %; Hematocrit 47.7 % (37.0-47.0); Hemoglobin 15.6 g/dL (11.5-15.3); Lymphocytes # 4.3 10^3/uL (0.8-4.8); Lymphocytes % 35.8 %; Mean Corpuscular HGB Conc 32.7 g/dL (30.0-36.0); Mean Corpuscular Hemoglobin 30.7 pg (28.0-34.0); Mean Corpuscular Volume 93.9 fL (81-99); Mean Platelet Volume 11.8 fL (7.4-10.4); Monocytes # 0.9 10^3/uL (0.2-0.9); Monocytes % 7.2 %; Neutrophils # 6.58 10^3/uL (1.8-7.7); Neutrophils % 54.3 %; Nucleated Red Blood Cells % 0 %; Platelet Count 262 10^3/cmm (130-400); Red Blood Count 5.08 10^6/uL (4.1-5.3); Red Cell Distribution Width 13.9 % (12.1-15.1); White Blood Count 12.1 10^3/uL (4.0-10.0)
--- NOTE | 2020-07-29 21:18 | CTR_ITS ---
PROCEDURE INFORMATION: Exam: CT Abdomen And Pelvis With Contrast Exam date and time: 07/29/2020 9:20 PM Age: 39 years old Clinical indication: Other: Blood in stool; Abdominal pain; Localized; Lower; Prior surgery; Surgery type: Hyst, adhesions, appy; Additional info: Abd pain TECHNIQUE: Imaging protocol: Computed tomography of the abdomen and pelvis with intravenous contrast. Radiation optimization: All CT scans at this facility use at least one of these dose optimization techniques: automated exposure control; mA and/or kV adjustment per patient size (includes targeted exams where dose is matched to clinical indication); or iterative reconstruction. Contrast material: OMNI 300; Contrast volume: 95 ml; Contrast route: INTRAVENOUS (IV); COMPARISON: CT abdomen pelvis w con* [id number] 07/20/2020 2:07 PM RADIATION DOSE METRICS: Total DLP (mGy-cm): 1564.21 FINDINGS: Liver: Hepatic steatosis. Gallbladder and bile ducts: Normal. No calcified stones. No ductal dilation. Pancreas: Normal. No ductal dilation. Spleen: Normal. No splenomegaly. Adrenal glands: Normal. No mass. Kidneys and ureters: Normal. No hydronephrosis. Stomach and bowel: Prominent fluid in the small bowel suggestive of an enteritis in the appropriate clinical setting. Appendix: No evidence of appendicitis. Intraperitoneal space: Unremarkable. No free air. No significant fluid collection. Vasculature: Unremarkable. No abdominal aortic aneurysm. Lymph nodes: Unremarkable. No enlarged lymph nodes. Urinary bladder: Unremarkable as visualized. Reproductive: Unremarkable as visualized. Bones/joints: Unremarkable. No acute fracture. Soft tissues: Unremarkable. CT/CT abdomen pelvis w con* [id number] IMPRESSION: 1. Prominent fluid in the small bowel suggestive of an enteritis in the appropriate clinical setting. 2. Hepatic steatosis. Radiation Dose CTDIVOL = (mGy): DLP = 1564.21 (mGy-cm)
[2020-07-29 21:34] LABS: Urine Appearance Clear (CLEAR); Urine Color Yellow (Yellow)
[2020-07-29 21:34] LABS: Alanine Aminotransferase 50 U/L (0-33); Albumin Level 4.6 g/dL (3.5-5.2); Alkaline Phosphatase 88 IU/L (35-105); Aspartate Amino Transferase 36 U/L (0-32); Blood Urea Nitrogen 11 mg/dL (6-20); Calcium 9.7 mg/dL (8.5-10.5); Carbon Dioxide 28 mmol/L (22-29); Chloride 103 mmol/L (98-107); Glomerular Filtration Rate 111.9 mL/min (90-130); Glucose 109 mg/dL (65-115); Lipase 39 U/L (13-60); Osmolality Calculated 290 mOsm/kg (285-295); Sodium 140 mmol/L (136-145); Total Bilirubin 0.2 mg/dL (0.15-1.2); Total Protein 7.6 g/dL (6.6-8.7)
[2020-07-29 21:35] LABS: Add Urine Culture? No; Add Urine Microscopic? YES; Bacteria Urine 1+ /hpf; Bilirubin Urine Neg (Negative); Blood Urine 2+ (Negative); Glucose Urine UA Norm (Normal); Ketones Urine Negative (Negative); Leukocyte Esterase Urine Negative (Negative); Mucus Urine 2+ /hpf; Nitrate Urine Negative (Negative); Protein Urine 1+ (Negative); RBC Urine 0-4 /hpf (0-2); Urobilinogen Urine Norm (Negative); WBC Urine 0-4 /hpf (0-5)
[2020-07-29] MEDS: iohexol 300 mg/mL 100 mL Btl IV (22:00)
[2020-07-29 22:10] VITALS: RESP 17
[2020-07-29] MEDS: HYDROmorphone 1 mg/mL INJ 1 mL IVP (22:10)
[2020-07-29 22:22] VITALS: PULSE 67; RESP 18; O2SAT 97
[2020-07-30 07:26] LABS: HCG Qualitative Urine. Negative (Negative)
== END 2020-07-29 22:43 | disposition home or self-care (01) ==
PROVIDERS: Emergency Provider Emergency Medicine; PCP Family Medicine
DX: R10.84 Generalized abdominal pain (principal); F17.210 Nicotine dependence, cigarettes, uncomplicated
CPT/HCPCS: 12345; 74177; 80053; 81001; 81025; 83690; 85025; 96372; 96374; 96375; 99283; J1170; J2270; J2550; Q9967

== ENCOUNTER → 2020-09-03 17:56 | Outpatient (BNVA) | payer MEDICAID, SELFPAY | PROVIDERS: PCP Family Medicine; Visit Provider Surgery | DX: K92.1 Melena (principal) | CPT/HCPCS: 87635 ==

== ENCOUNTER 2020-09-05 19:49 | Emergency (ER) | payer MEDICAID, SELFPAY ==
[2020-09-05 19:57] VITALS: BP 139/100; PULSE 83; RESP 18; TEMP 36.1; O2SAT 96; BMI 39.1
--- NOTE | 2020-09-05 20:03 | ED_ITS ---
HPI - Skin/Abscess/Foreign Bdy General: Chief complaint: Skin/Abscess/Foreign Body Stated complaint: POSS CYST L LEG Time Seen by Provider: 09/05/20 20:03 History of Present Illness: HPI narrative: Patient is a 39-year-old female comes to the ED with possible abscess on left groin. Patient says she noticed some discomfort yesterday in that region, but today she woke up and felt a small tender nodule in the left groin. Denies any fever, chills, chest pain, shortness of breath, nausea/vomiting, bladder or bowel symptoms. Patient says she has a history of past staph infections. Associated symptoms: Deny chills, fever(s), nausea or vomiting Review of Systems Const: Denies: fever(s), chills or fatigue Eyes: Denies: change in vision or eye discomfort ENMT: Denies: throat pain, odynophagia, nasal discharge or nasal congestion Card: Denies: chest pain, palpitations, edema, swelling of feet/ankles, dyspnea on exertion or orthopnea Resp: Denies: dyspnea, productive cough or non-productive cough GI: Denies: abdominal pain, nausea, vomiting, diarrhea, constipation or hematochezia : Denies: flank pain, dysuria or hematuria Musc: Denies: neck pain, back pain or extremity swelling Skin/Breast: Reports: new lesions (Small tender nodule on left groin.); Denies: rash Neuro: Denies: headache(s), numbness in extremities or weakness in extremities PFSH ED PFSH: Medical History Fibromyalgia Surgical History History of appendectomy History of colonoscopy with polypectomy History of endoscopic sinus surgery History of hysterectomy History of oral surgery History of tonsillectomy Family History Denies family history of Anesthesia complication Bleeding disorder Social History Smoking and tobacco status: current every day smoker Physical Exam Const: COMMON NORMALS: no acute distress, patient oriented x3 and alert GENERAL APPEARANCE: cooperative and comfortable HENMT: COMMON NORMALS: normocephalic HEAD & SCALP: normocephalic MOUTH: Normal oral and palatal mucosa present THROAT: posterior oropharynx normal and uvula midline Neck/C-Spine: COMMON NORMALS: supple GENERAL: Yes normal visual inspection Resp: COMMON NORMALS: normal respiratory effort, No retractions, No use of accessory muscles and clear to auscultation bilaterally AUSCULTATION: clear to auscultation bilaterally Cardio: COMMON NORMALS: regular rate, regular rhythm, S1 normal heart sound present, S2 normal heart sound present, No gallops present (Cardio), No clicks present (Cardio), No murmurs present (Cardio) and Peripheral pulses 2+ throughout RATE: regular rate RHYTHM: regular rhythm HEART SOUNDS: S1 normal heart sound present and S2 normal heart sound present PERIPHERAL PULSES: Peripheral pulses 2+ throughout GI: COMMON NORMALS: Normal to inspection, nondistended, normoactive bowel sounds present, Soft to palpation, non-tender and no masses PALPATION: Yes Soft to palpation : COMMON NORMALS: Yes no CVA tenderness BLADDER/KIDNEY EXAM: Yes no CVA tenderness Back/Pelvis: COMMON NORMALS: no CVA tenderness Extremity: NARRATIVE EXTREMITY EXAM: Pmaela the nurse was the industrial custodian during my exam of the lesion. Lesion is located in the left groin area. Small 5 mm tender nodule. With some warmth and erythema present. No purulent drainage or bauman seen. Findings suggestive of a skin abscess developing. GENERAL: Yes normal exam except as noted Neuro: COMMON NORMALS: patient oriented x3 and moves all extremities SENSORIUM/ORIENTATION: Yes alert Skin: NARRATIVE SKIN EXAM: Pamela the nurse was the industrial custodian during my exam of the lesion. Lesion is located in the left groin area. Small 5 mm tender nodule. With some warmth and erythema present. No purulent drainage or bauman seen. Findings suggestive of a skin abscess developing. GENERAL SKIN EXAM: dry skin Course ED course: Pamela the nurse was present in the industrial custodian in the room during the exam of the lesion located in patient's left groin. Vital Signs: Vital signs: Vital Signs Temperature 97.0 F L 09/05/20 19:57 Pulse Rate 83 09/05/20 19:57 Respiratory Rate 18 09/05/20 19:57 Blood Pressure 139/100 09/05/20 19:57 Pulse Oximetry 96 09/05/20 19:57 MDM - Skin/Abscess/Foreign Bdy MDM Narrative: Medical decision making narrative: Patient is a 39-year-old female has a small tender nodule to the left groin approximately 5 mm in size. It is superficial with some erythema and warmth upon palpation. At this time I do not think it needs to be lanced so I am going to put her on some antibiotics and have her do warm compresses. I instructed her to return to the ED to get it lanced possibly if it worsens after 3 days of being on the antibiotics. Discharge Plan Discharge Patient Disposition: Home Clinical Impression: Abscess of skin or subcutaneous tissue Qualifiers: Site of cutaneous abscess: other site Qualified Code(s): L02.818 - Cutaneous abscess of other sites Condition: Stable Prescriptions: New clindamycin HCl 150 mg capsule 300 mg PO QID 7 Days Qty: 56 RF: 0 No Action ciprofloxacin HCl [Cipro] 500 mg tablet 500 mg PO BID Qty: 14 RF: 0 metronidazole [Flagyl] 500 mg tablet 500 mg PO TID Qty: 21 RF: 0 lactulose 10 gram/15 mL (15 mL) solution 10 g PO BID Qty: 750 RF: 1 meloxicam 7.5 mg tablet 7.5 mg PO DAILY Qty: 30 RF: 3 hydrocodone-acetaminophen 10-325 mg tablet 1 tab PO TID PRN (Reason: Pain) RF: 0 tramadol 50 mg tablet See Rx Instructions .ROUTE .COMPLEX RF: 0 naproxen 500 mg Tablet,Delayed Release (Dr/Ec) 500 mg PO BID PRN (Reason: Pain) RF: 0 furosemide 20 mg tablet 20 mg PO PRN PRN (Reason: Edema) RF: 0 albuterol sulfate [ProAir HFA] 90 mcg/actuation HFA aerosol inhaler 1 - 2 puff INHALATION Q4H PRN (Reason: Shortness Of Breath) RF: 0 Premarin 0.3 mg tablet 0.3 mg PO DAILY RF: 0 levocetirizine 5 mg tablet 5 mg PO DAILY RF: 0 cetirizine 10 mg tablet 10 mg PO DAILY RF: 0 DOK 100 mg capsule 200 mg PO BEDTIME RF: 0 azelastine 137 mcg (0.1 %) aerosol,spray See Rx Instructions .ROUTE .COMPLEX RF: 0 potassium chloride 1 tab PO DAILY RF: 0 vitamin E 1 tab PO DAILY RF: 0 dicyclomine 20 mg tablet 20 mg PO TID PRN (Reason: abdominal pain) Qty: 20 RF: 0 promethazine 25 mg tablet 25 mg PO TID PRN (Reason: nausea and vomiting) Qty: 20 RF: 0 Discharge Orders: Discharge ED (Routine); Ordered 09/05/20 Ordered By: Jori Jordan Referrals: Sage Mckeon MD [Primary Care Provider] - Discharge Diet: Regular Discharge Activity: Resume usual activity Patient Instructions: Skin Abscess, Skin Abscess - Antibiotics Activity Restrictions/Additional Instructions: Follow-up with medical provider as directed. Return to ED for possible lancing of abscess if after 3 days of being on antibiotic symptoms worsen. Take medications as prescribed. Apply warm compresses. return to the ER or your medical provider if condition worsens. Please read and understand discharge instructions. If any questions, please ask. Coding Level of Care Code ED Wireless Engineer for Mindi Fwd Exam Comprehensive
[2020-09-05] MEDS: clindamycin 150 mg Capsule 300 MG PO (20:32)
[2020-09-05 20:44] VITALS: BP 142/96; PULSE 80; RESP 18; O2SAT 97
--- NOTE | 2020-09-05 20:45 | PC.NURSE ---
i agree with this assessment
== END 2020-09-05 20:46 | disposition home or self-care (01) ==
PROVIDERS: Emergency Provider Physician Assistant; PCP Family Medicine
DX: L02.818 Cutaneous abscess of other sites (principal); F17.210 Nicotine dependence, cigarettes, uncomplicated
CPT/HCPCS: 12345; 99281; 99282

== ENCOUNTER 2020-11-02 09:58 | Outpatient (CLI) | payer MEDICAID, SELFPAY ==
--- NOTE | 2020-11-02 10:03 | MR_ITS ---
WS: [id number] MRI CERVICAL SPINE NONCONTRAST HISTORY: CERVICALGIA COMPARISON: 03/17/2013 Technique: Multiplanar, multisequence noncontrast imaging of the cervical spine. This study is significantly limited by motion artifact. Patient was unable to remain still. Mild LEFT convex curvature of the cervical spine. Posterior alignment is within normal limits. No gross abnormality within the signal of the cord but there is significant motion artifact limiting evaluation of the cord. Mild ectopia of the cerebellar tonsils. Craniocervical junction, C1 and C2 relationship, odontoid process and soft tissues are normal. C2-C3: Normal. C3-C4: Normal. C4-C5: Moderate size LEFT paracentral disc protrusion contacting but not displacing the thecal sac. N o significant stenosis. C5-C6: Small osteophyte or disc protrusion RIGHT foramen with mild stenosis and narrowing. C6-C7: Normal. C7-T1: Normal. Paraspinal soft tissue are normal. Empty sella turcica. MR/MR cervical spin wo con* [id number] IMPRESSION: 1. Quality of this MRI is significantly limited by motion artifact. 2. Moderate-sized LEFT paracentral disc protrusion at C4-5 with minimal contac t on the cervical cord with no displacement. 3. Mild cerebellar tonsillar ectopia.
== END 2020-11-02 09:59 | disposition home or self-care (01) ==
LOC: RADWPI 10:00
PROVIDERS: PCP Family Medicine; Visit Provider Anesthesiology Pain Medicine
DX: Q04.8 Other specified congenital malformations of brain (principal); M50.221 Other cervical disc displacement at C4-C5 level
CPT/HCPCS: 72141

== ENCOUNTER 2021-02-09 09:14 | Outpatient (RCR) | payer MEDICAID, SELFPAY | END 2021-02-21 23:59 | disposition home or self-care (01) | LOC: SPT 09:14 | PROVIDERS: PCP Family Medicine; Referring Provider Anesthesiology Pain Medicine; Visit Provider Anesthesiology Pain Medicine | DX: M54.2 Cervicalgia (principal); G89.4 Chronic pain syndrome | CPT/HCPCS: 97110; 97161 ==

== ENCOUNTER 2021-02-10 16:56 | Emergency (ER) | payer MEDICAID, SELFPAY ==
[2021-02-10 17:06] VITALS: BP 148/89; PULSE 79; RESP 18; TEMP 36.8; O2SAT 95; BMI 42.1
--- NOTE | 2021-02-10 17:13 | USR_ITS ---
PROCEDURE INFORMATION: Exam: US Duplex Left Lower Extremity Veins, Limited Exam date and time: 02/10/2021 5:14 PM Age: 40 years old Clinical indication: Pain; Leg, lower; Left; Additional info: Left leg swelling and pain TECHNIQUE: Imaging protocol: Real-time Duplex ultrasound of the Left Lower Extremity with 2-D moon scale, color Doppler flow and spectral waveform analysis with image documentation. Limited exam focused on the left lower extremity veins. COMPARISON: US ROR venous duplex 10/07/2020 2:40 PM FINDINGS: Left deep veins: Unremarkable. The common femoral, femoral, proximal profunda femoral and popliteal veins are patent without thrombus. Normal Doppler waveforms. Normal compressibility and/or augmentation response. Left superficial veins: Unremarkable. Saphenofemoral junction is patent without thrombus. Soft tissues: Unremarkable. US/CV venous duplex [id number] IMPRESSION: No evidence of deep vein thrombosis.
--- NOTE | 2021-02-10 19:50 | W.ED.EXTPRO ---
HPI - Extremity Problem General: Chief complaint: Extremity Problem,Nontraumatic Stated complaint: LEFT LEG SWOLLEN PT WORRIED BOUT BLOOD CLOT Time Seen by Provider: 02/10/21 17:56 History of Present Illness: HPI Narrative: Patient is a 40-year-old female comes to the ED with left leg swelling and pain. Symptoms started 2 days ago. Patient says she got the Covid 19 vaccine 2 days ago and after she got her left leg got a little red swollen and tender. She was sent here by her doctor to get evaluated for possible blood clot. Patient denies any shortness of breath, chest pain or hemoptysis. Associated symptoms: Deny chest pain, fever(s) or rash Review of Systems Const: Denies: fever(s), chills or fatigue Eyes: Denies: change in vision or eye discomfort ENMT: Denies: throat pain, odynophagia, nasal discharge or nasal congestion Card: Denies: chest pain, palpitations, edema, swelling of feet/ankles, dyspnea on exertion or orthopnea Resp: Denies: dyspnea, productive cough or non-productive cough GI: Denies: abdominal pain, nausea, vomiting, diarrhea, constipation or hematochezia : Denies: flank pain, dysuria or hematuria Musc: Reports: extremity pain (Left lower leg pain/calf tenderness) and extremity swelling (Left lower leg); Denies: neck pain or back pain Skin/Breast: Denies: rash or new lesions Neuro: Denies: headache(s), numbness in extremities or weakness in extremities PFS ED PFSH: Medical History Fibromyalgia Surgical History History of appendectomy History of colonoscopy with polypectomy History of endoscopic sinus surgery History of hysterectomy History of oral surgery History of tonsillectomy Family History Denies family history of Anesthesia complication Bleeding disorder Social History Smoking and tobacco status: current every day smoker Physical Exam Const: COMMON NORMALS: no acute distress, patient oriented x3 and alert GENERAL APPEARANCE: cooperative and comfortable NUTRITIONAL APPEARANCE: overweight HENMT: COMMON NORMALS: normocephalic HEAD & SCALP: normocephalic MOUTH: Normal oral and palatal mucosa present THROAT: posterior oropharynx normal and uvula midline Neck/C-Spine: COMMON NORMALS: supple GENERAL: Yes normal visual inspection Resp: COMMON NORMALS: normal respiratory effort, No retractions, No use of accessory muscles and clear to auscultation bilaterally AUSCULTATION: clear to auscultation bilaterally Cardio: COMMON NORMALS: regular rate, regular rhythm, S1 normal heart sound present, S2 normal heart sound present, No gallops present (Cardio), No clicks present (Cardio), No murmurs present (Cardio) and Peripheral pulses 2+ throughout RATE: regular rate RHYTHM: regular rhythm HEART SOUNDS: S1 normal heart sound present and S2 normal heart sound present PERIPHERAL PULSES: Peripheral pulses 2+ throughout GI: COMMON NORMALS: Normal to inspection, nondistended, normoactive bowel sounds present, Soft to palpation, non-tender and no masses PALPATION: Yes Soft to palpation : COMMON NORMALS: Yes no CVA tenderness BLADDER/KIDNEY EXAM: Yes no CVA tenderness Back/Pelvis: COMMON NORMALS: no CVA tenderness Extremity: GENERAL: Yes normal exam except as noted, Yes calf tenderness (left calf tenderness) and Yes edema (left leg trace pitting edema) Neuro: COMMON NORMALS: patient oriented x3 and moves all extremities SENSORIUM/ORIENTATION: Yes alert Skin: GENERAL SKIN EXAM: dry skin Course Vital Signs: Vital signs: Vital Signs Temperature 98.2 F 02/10/21 20:15 Pulse Rate 100 02/10/21 20:15 Respiratory Rate 18 02/10/21 20:15 Blood Pressure 150/99 02/10/21 20:15 Pulse Oximetry 95 02/10/21 20:15 MDM - Extremity (Nontraumatic) MDM Narrative: Medical decision making narrative: Patient is a 40-year-old female comes to the ED with left lower extremity pain and swelling. Patient indicated that she took the COVID-19 vaccination right before left leg pain and swelling started. She denies any chest pain, shortness of breath or hemoptysis. Exam shows some trace pitting edema of the left leg and some left calf tenderness. Ultrasound venous duplex of left lower extremity showed no DVTs or blood clots seen. Patient diagnosed with leg edema and told to elevate lower extremity and wear compression stockings to help with swelling. Return to ED precautions given. Follow-up with PCP in 7 to 10 days for reevaluation. Patient understood agree with plan. Imaging Data^: US Vascular: Attestation: I personally reviewed and interpreted this imaging study as follows: Radiologist's impression: Left lower extremity venous duplex?prelim report no DVTs or blood clots seen. Discharge Plan Discharge Patient Disposition: Home Clinical Impression: Leg edema, left Condition: Stable Prescriptions: No Action lactulose 10 gram/15 mL solution See Rx Instructions .ROUTE .COMPLEX Qty: 750 RF: 0 hydrocodone-acetaminophen 10-325 mg tablet 1 tab PO TID PRN (Reason: Pain) RF: 0 tramadol 50 mg tablet See Rx Instructions .ROUTE .COMPLEX RF: 0 naproxen 500 mg Tablet,Delayed Release (Dr/Ec) 500 mg PO BID PRN (Reason: Pain) RF: 0 furosemide 20 mg tablet 20 mg PO PRN PRN (Reason: Edema) RF: 0 albuterol sulfate [ProAir HFA] 90 mcg/actuation HFA aerosol inhaler 1 - 2 puff INHALATION Q4H PRN (Reason: Shortness Of Breath) RF: 0 Premarin 0.3 mg tablet 0.3 mg PO DAILY RF: 0 cetirizine 10 mg tablet 10 mg PO DAILY RF: 0 azelastine 137 mcg (0.1 %) aerosol,spray See Rx Instructions .ROUTE .COMPLEX RF: 0 potassium chloride 1 tab PO DAILY RF: 0 aripiprazole 2 mg tablet 2 mg PO DAILY RF: 0 desvenlafaxine succinate 50 mg tablet extended release 24 hr 50 mg PO DAILY RF: 0 Discharge Orders: Discharge ED (Routine); Ordered 02/10/21 Ordered By: Jori Jordan Referrals: Sage Mckeon MD [Primary Care Provider] - Discharge Diet: Regular Discharge Activity: Increase activity as tolerated Patient Instructions: Leg Edema (ED) Activity Restrictions/Additional Instructions: Follow-up with medical provider as directed in 7 to 10 days for reevaluation. Rest, elevate and ice left leg to help with symptoms. Wear compression stockings to help with leg swelling. Return to the ER or your medical provider if condition worsens. Please read and understand discharge instructions. Thank you for choosing [facility] for your healthcare needs today. Please realize this is an emergency room and that we are providing you with a medical screening exam and this may not be complete and all inclusive of all the testing and or work up that you may need to determine your ailment or severity of your illness. It is very important that you follow up as instructed or that you return to the Emergency Department should you have concerns or if your condition changes or worsens in any way. Coding Level of Care Code ED Sales Support Manager for Mindi Chavez Exam Comprehensive
[2021-02-10 20:00] VITALS: PULSE 86
[2021-02-10 20:11] VITALS: BP 150/99; PULSE 100; RESP 18; TEMP 36.8; O2SAT 95
[2021-02-10 20:15] VITALS: BP 150/99; PULSE 100; RESP 18; TEMP 36.8; O2SAT 95
== END 2021-02-10 20:16 | disposition home or self-care (01) ==
PROVIDERS: Emergency Provider Physician Assistant; PCP Family Medicine
DX: R60.0 Localized edema (principal); F17.210 Nicotine dependence, cigarettes, uncomplicated
CPT/HCPCS: 93971; 99282

== ENCOUNTER 2021-02-22 06:00 | Outpatient (RCR) | payer MEDICAID, SELFPAY | END 2021-03-23 23:59 | disposition home or self-care (01) | LOC: SPT 06:00 | PROVIDERS: PCP Family Medicine; Referring Provider Anesthesiology Pain Medicine; Visit Provider Anesthesiology Pain Medicine | DX: M54.2 Cervicalgia (principal); G89.4 Chronic pain syndrome | CPT/HCPCS: 97110 ==

== ENCOUNTER 2021-03-21 12:35 | Emergency (ER) | payer MEDICAID, SELFPAY ==
[2021-03-21 13:27] VITALS: BP 147/89; PULSE 81; RESP 18; TEMP 36.7; O2SAT 95; BMI 40.9
--- NOTE | 2021-03-21 15:48 | ED_ITS ---
HPI - Extremity Problem General: Chief complaint: Extremity Problem,Nontraumatic Stated complaint: LEFT SHOULDER PAIN Time Seen by Provider: 03/21/21 15:38 History of Present Illness: HPI Narrative: Patient is a 40-year-old female comes to the ED with left shoulder pain. Patient says she has been suffering from left shoulder pain for the past 2 months. Patient says that the pain initially started 2 months ago when she was playing fetch with her dog and threw this rubber tire for the dog to fetch. She felt pain in her left shoulder after that and has seen her primary care physician for left shoulder pain. She was sent to do physical therapy to help with left shoulder pain. She says PT has not been helping her left shoulder. Over the past 5 days she has had increasing pain in left shoulder. She currently takes hydrocodone for chronic back pain and states that that has not helped the left shoulder pain. She is also tried taking some Aleve as well and that has not helped pain either. Associated symptoms: Deny chest pain, fever(s) or rash Review of Systems Const: Denies: fever(s), chills or fatigue Eyes: Denies: change in vision or eye discomfort ENMT: Denies: throat pain, odynophagia, nasal discharge or nasal congestion Card: Denies: chest pain, palpitations, edema, swelling of feet/ankles, dyspnea on exertion or orthopnea Resp: Denies: dyspnea, productive cough or non-productive cough GI: Denies: abdominal pain, nausea, vomiting, diarrhea, constipation or hematochezia : Denies: flank pain, dysuria or hematuria Musc: Reports: extremity pain (left shoulder pain); Denies: neck pain, back pain or extremity swelling Skin/Breast: Denies: rash or new lesions Neuro: Denies: headache(s), numbness in extremities or weakness in extremities PFSH ED PFSH: Medical History Fibromyalgia Surgical History History of appendectomy History of colonoscopy with polypectomy History of endoscopic sinus surgery History of hysterectomy History of oral surgery History of tonsillectomy Family History Denies family history of Anesthesia complication Bleeding disorder Social History Smoking and tobacco status: current every day smoker Physical Exam Const: COMMON NORMALS: no acute distress, patient oriented x3 and alert GENERAL APPEARANCE: cooperative and comfortable HENMT: COMMON NORMALS: normocephalic HEAD & SCALP: normocephalic MOUTH: Normal oral and palatal mucosa present THROAT: posterior oropharynx normal and uvula midline Neck/C-Spine: COMMON NORMALS: supple GENERAL: Yes normal visual inspection Resp: COMMON NORMALS: normal respiratory effort, No retractions, No use of accessory muscles and clear to auscultation bilaterally AUSCULTATION: clear to auscultation bilaterally Cardio: COMMON NORMALS: regular rate, regular rhythm, S1 normal heart sound present, S2 normal heart sound present, No gallops present (Cardio), No clicks present (Cardio), No murmurs present (Cardio) and Peripheral pulses 2+ throughout RATE: regular rate RHYTHM: regular rhythm HEART SOUNDS: S1 normal heart sound present and S2 normal heart sound present PERIPHERAL PULSES: Peripheral pulses 2+ throughout GI: COMMON NORMALS: Normal to inspection, nondistended, normoactive bowel sounds present, Soft to palpation, non-tender and no masses PALPATION: Yes Soft to palpation : COMMON NORMALS: Yes no CVA tenderness BLADDER/KIDNEY EXAM: Yes no CVA tenderness Back/Pelvis: COMMON NORMALS: no CVA tenderness Extremity: LEFT UPPER EXTREMITY: Yes shoulder joint Left shoulder joint: Yes inspection (No visible deformity seen), Yes palpation (Tenderness around the AC joint.), Yes ROM (limited due ROM) and Yes neurovascular exam (Intact) Neuro: COMMON NORMALS: patient oriented x3 and moves all extremities SENSORIUM/ORIENTATION: Yes alert Skin: GENERAL SKIN EXAM: dry skin Course Vital Signs: Vital signs: Vital Signs Temperature 98.1 F 03/21/21 13:27 Pulse Rate 81 03/21/21 13:27 Respiratory Rate 20 H 03/21/21 16:12 Blood Pressure 147/89 03/21/21 13:27 Pulse Oximetry 95 03/21/21 13:27 MDM - Extremity (Nontraumatic) MDM Narrative: Medical decision making narrative: Patient is a 40-year-old female comes to the ED with left shoulder pain. She has been having shoulder pain for the past 2 months She has seen her PCP about shoulder pain and is currently been getting physical therapy and it has not been helping. Lying in the ED patient has some pain with abduction of left arm but is neurovascular intact and there is no visible deformity. Left shoulder x-ray shows no acute findings or fractures. Patient was diagnosed with left shoulder pain and discharged home. She was told to continue taking her previously prescribed pain medication and to wear shoulder sling and ice left shoulder to help with symptoms. Return to ED precautions given. Patient was told to follow-up with her primary care physician to discuss left shoulder pain and let them know physical therapy is not helping. Patient understood and agree with plan. Imaging Data^: Xray Ortho: Attestation: I personally reviewed and interpreted this imaging study as follows: Radiologist's impression: [email or web address] [address] XRay Report Signed Patient: Marlene Schroeder Unit #: [id number] : 1980 Age/Sex: 40 / F ADM Date: 03/21/21 Loc: ER Room/Bed: Attending Dr: Ordering Provider/Ordering MD: Jori Jordan Date of Service: 03/21/21 Procedure(s): XR shoulder LT min 2V* [id number] Accession Number(s): [id number] Report Number: [id number] PROCEDURE INFORMATION: Exam: XR Left Shoulder Exam date and time: 03/21/2021 4:06 PM Age: 40 years old Clinical indication: Pain; Shoulder; Left; Additional info: Left shoulder pain TECHNIQUE: Imaging protocol: XR Left shoulder. Views: 2 or more views. COMPARISON: CR Chest 2 views* [id number] 02/28/2018 10:52 PM FINDINGS: Bones/joints: The bones are intact and in normal alignment. Mild degenerative changes of the acromioclavicular joint. Multiple calcified densities along the superior aspect of the humeral head could represent tendon calcifications or osteocartilaginous bodies. Soft tissues: Normal. XR/XR shoulder LT min 2V* [id number] IMPRESSION: 1. No acute findings. Dictated By: Patrice Hardy Signed By: Patrice Hardy Signed Date/Time: 03/21/211654 DD/ 53 Discharge Plan Discharge Patient Disposition: Home Clinical Impression: Left shoulder pain Qualifiers: Chronicity: unspecified Qualified Code(s): M25.512 - Pain in left shoulder Condition: Stable Prescriptions: No Action hydrocodone-acetaminophen 10-325 mg tablet 1 tab PO TID PRN (Reason: Pain) RF: 0 tramadol 50 mg tablet See Rx Instructions .ROUTE .COMPLEX RF: 0 naproxen 500 mg Tablet,Delayed Release (Dr/Ec) 500 mg PO BID PRN (Reason: Pain) RF: 0 furosemide 20 mg tablet 20 mg PO PRN PRN (Reason: Edema) RF: 0 albuterol sulfate [ProAir HFA] 90 mcg/actuation HFA aerosol inhaler 1 - 2 puff INHALATION Q4H PRN (Reason: Shortness Of Breath) RF: 0 Premarin 0.3 mg tablet 0.3 mg PO DAILY RF: 0 azelastine 137 mcg (0.1 %) aerosol,spray See Rx Instructions .ROUTE .COMPLEX RF: 0 potassium chloride 1 tab PO DAILY RF: 0 aripiprazole 2 mg tablet 2 mg PO DAILY@0600 RF: 0 desvenlafaxine succinate 50 mg tablet extended release 24 hr 50 mg PO DAILY@0600 RF: 0 levocetirizine 5 mg tablet 5 mg PO BID@0600,2000 RF: 0 lactulose 10 gram/15 mL solution 15 ml PO BID RF: 0 Discharge Orders: Discharge ED (Routine); Ordered 03/21/21 Ordered By: Jori Jordan Referrals: Sage Mckeon MD [Primary Care Provider] - Discharge Diet: Regular Discharge Activity: Limit activity as instructed Patient Instructions: Shoulder Sprain (ED) Activity Restrictions/Additional Instructions: Follow-up with medical provider as directed. Contact your primary care physician to discuss your left shoulder pain and I will physical therapy has not been helping. Wear shoulder sling during the day to help with symptoms. Sure to remove your arm from sling multiple times throughout the day and do some range of motion exercises to prevent shoulder freeze. Take your previously prescribed hydrocodone for pain. You can also take [id number] ibuprofen or Aleve as well to help out with pain. Apply cold pack on shoulder to help with symptoms. Return to the ER or your medical provider if condition worsens. Please read and understand discharge instructions. Thank you for choosing [facility] for your healthcare needs today. Please realize this is an emergency room and that we are providing you with a medical screening exam and this may not be complete and all inclusive of all the testing and or work up that you may need to determine your ailment or severity of your illness. It is very important that you follow up as instructed or that you return to the Emergency Department should you have concerns or if your condition changes or worsens in any way. Coding Level of Care Code ED Religious Educator for Mindi Fwd Exam Comprehensive
--- NOTE | 2021-03-21 16:06 | XRR_ITS ---
PROCEDURE INFORMATION: Exam: XR Left Shoulder Exam date and time: 03/21/2021 4:06 PM Age: 40 years old Clinical indication: Pain; Shoulder; Left; Additional info: Left shoulder pain TECHNIQUE: Imaging protocol: XR Left shoulder. Views: 2 or more views. COMPARISON: CR Chest 2 views* [id number] 02/28/2018 10:52 PM FINDINGS: Bones/joints: The bones are intact and in normal alignment. Mild degenerative changes of the acromioclavicular joint. Multiple calcified densities along the superior aspect of the humeral head could represent tendon calcifications or osteocartilaginous bodies. Soft tissues: Normal. XR/XR shoulder LT min 2V* [id number] IMPRESSION: 1. No acute findings.
[2021-03-21 16:12] VITALS: RESP 20
[2021-03-21] MEDS: morphine 4 mg/mL SDV 1 mL IM (16:12)
[2021-03-21 17:23] VITALS: BP 144/101; PULSE 83; RESP 16; O2SAT 98
--- NOTE | 2021-03-21 17:23 | PC.NURSE ---
shoulder sling applied to left
== END 2021-03-21 17:25 | disposition home or self-care (01) ==
PROVIDERS: Emergency Provider Physician Assistant; PCP Family Medicine
DX: M25.512 Pain in left shoulder (principal); F17.210 Nicotine dependence, cigarettes, uncomplicated
CPT/HCPCS: 73030; 96372; 99283; J2270

== ENCOUNTER 2021-04-07 12:56 | Outpatient (CLI) | payer MEDICAID, SELFPAY ==
--- NOTE | 2021-04-07 13:06 | CT_ITS ---
WS: [id number] CT PARANASAL SINUSES HISTORY: ATYPICAL FACIAL PAIN, CYST AND MUCOCELE OF NOSE AND SINUSES TECHNIQUE: Contiguous 2.5 mm axial images obtained through the sinuses. Images are reconstructed in s agittal and coronal planes. All CT scans at use at least one of these dose opt imization techniques: automated exposure control; mA and/or kV adjustment per patient size (includes targeted exams where dose is matched to clinical indication); or iterative reconstruction. DLP: 323.39 mGycm COMPARISON: CT 12/03/2006, 09/15/2008, MRI 01/30/2020, Frontal sinuses: Soft tissue mass completely filling the RIGHT frontal sinus with extension into the frontal ethmoid recess. Mild expansion of the frontal sinus cavity but there is also new destruction of the posterior wall of the RIGHT frontal sinus. Loss of bone measures 9 mm in diameter. It is diffi cult to tell on this unenhanced study if this soft tissue mass is actually extending intracranial. Th ere is a mild change in density measuring 1.5 cm in diameter extending along the dura. The LEFT front al sinus is clear. Sphenoid sinus: Clear. Ethmoid sinuses: Clear. Maxillary sinus: Clear. Ostiomeatal unit: Patent. No significant obstruction. Conchal bullosa LEFT middle turbinate. CT/CT sinus wo con* [id number] IMPRESSION: 1. Soft tissue mass with mild bony expansion centered in the RIGHT frontal eth moid recess. 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 Destruct ion of the sinus wall is new since the MRI of 01/30/[address] of 10/27/2015. Dusty mmend follow-up MRI brain with contrast to evaluate extent of mass intracranial ly. 2. Remaining sinuses are negative.
== END 2021-04-07 12:57 | disposition home or self-care (01) ==
PROVIDERS: PCP Family Medicine; Visit Provider Specialist
DX: G50.1 Atypical facial pain (principal); J01.90 Acute sinusitis, unspecified; J34.1 Cyst and mucocele of nose and nasal sinus
CPT/HCPCS: 70486

== ENCOUNTER 2021-04-07 17:18 | Outpatient (CLI) | payer MEDICAID, SELFPAY ==
--- NOTE | 2021-04-07 17:30 | MR_ITS ---
WS: [id number] MRI LEFT SHOULDER HISTORY: LEFT ROTATOR CUFF DISORDER COMPARISON: 03/21/2021 radiograph TECHNIQUE: Multiplanar sequences of the shoulder joint are submitted. Mild bone and soft tissue hypertrophy at the AC joint. Mild encroachment upon the supraspinatus muscl e and tendon. Small amount of increased T2 signal in the circumferential capsule of the AC joint. Leanne y small amount of fluid in the subacromial and subdeltoid bursa. 4 mm osteophyte on the distal unders urface of the acromion without significant encroachment. No os acromion. Biceps tendon is in normal p osition. Humeral head is slightly high riding from the glenoid. Mild narrowing of the glenohumeral joint. Smal l subchondral cysts with the posterior lateral humeral head. There are numerous low signal loose bodi es associated with the distal supraspinatus tendon and the rotator cuff consistent with calcific tend initis. These were identified radiographically also. There is a small amount of fluid which is inters titial which is predominantly within the infraspinatus tendon. There is tendinopathy in both the infr aspinatus tendon and the supraspinatus tendon. The calcific densities are closely associated with the distal supraspinatus tendon and the largest measures 7 mm. No muscle atrophy or edema. Abnormal appearance of the labrum. The anterior labrum is torn and does appear to be dislocated centr ally into the glenohumeral joint. Superior labrum is slightly globular with intrasubstance degenerati on. MR/MR shoulder LT wo con* [id number] IMPRESSION: 1. Multiple calcific deposits closely associated with the distal supraspinatus tendon consistent with calcific tendinitis. 2. Interstitial tear involving the distal infraspinatus tendon with no retract ion or atrophy. 3. Abnormal anterior labrum. The labrum appears dislocated towards the glenohu meral joint. 4. Mild AC joint arthritis. 5. Glenohumeral joint arthritis with joint space narrowing and thinning of the cartilage.
== END 2021-04-07 17:19 | disposition home or self-care (01) ==
LOC: RADSHAW 17:22
PROVIDERS: PCP Family Medicine; Visit Provider Family Medicine
DX: M67.912 Unspecified disorder of synovium and tendon, left shoulder (principal); M13.812 Other specified arthritis, left shoulder; S46.812A Strain of other muscles, fascia and tendons at shoulder and upper arm level, left arm, initial encounter; X58.XXXA Exposure to other specified factors, initial encounter
CPT/HCPCS: 73221

== ENCOUNTER → 2021-09-07 14:04 | Outpatient (BNVA) | payer MEDICAID, SELFPAY | PROVIDERS: PCP Family Medicine; Referring Provider Student in an Organized Health Care Education/Training Program; Visit Provider Specialist | DX: G43.711 Chronic migraine without aura, intractable, with status migrainosus (principal); G50.1 Atypical facial pain; J34.1 Cyst and mucocele of nose and nasal sinus; F17.200 Nicotine dependence, unspecified, uncomplicated | CPT/HCPCS: 99204 ==

== ENCOUNTER 2021-10-05 15:01 | Outpatient (CLI) | payer MEDICAID, SELFPAY ==
--- NOTE | 2021-10-05 15:11 | MR_ITS ---
WS: [id number] MRI BRAIN/ORBIT with and without CONTRAST. COMPARISON: 01/30/2020, CT 04/07/2021 Multiplanar, multisequence imaging is performed with and without contrast. Very mild ectopia of the cerebellar tonsils similar to the prior examination. No Chiari malformation. Normal size fourth ventricle. Also noted is a partially empty sella turcica which is stable. Diffusion-weighted imaging is normal. Normal size ventricles. Normal signal abnormality within the gr eater white matter. No hemorrhage or prior infarct. Imaging through the orbits and globes demonstrates no globe abnormality. There is a symmetric appeara nce to the globes, extraocular muscles and the optic nerves. No enhancing masses or tram tracking. Th ere is no enlargement or asymmetry of the optic nerves. Again noted is the ovoid well-circumscribed lesion at the RIGHT frontal sinus extending into the fron constance ethmoid recess consistent with mucocele. Mucocele has increased in size and now extends from the frontal sinus into the frontal ethmoid recess. Mild expansion of the RIGHT frontal sinus and the fron constance ethmoid recess as seen better on the CT of the sinuses. Mucocele is closely associated with the R IGHT superior oblique muscle. Again noted is cortical destruction of the posterior RIGHT frontal sinu s. Extension of the mucocele through the cortical defect. Mucocele with very mild abutment of the RIG HT frontal dura. IMPRESSION: 1. 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 The bone destruction was better identified on the sinus CT of 04/07/2021. Now the mucocele abu ts the dura of the RIGHT frontal lobe through the previously described cortical defect. 2. There is also mild bony expansion of the frontal ethmoid recess with encroachment along the media l wall of the RIGHT superior orbit. 3. Incidental note is made of a mild Chiari malformation.
[2021-10-05] MEDS: gadobenate dimeglumine 20 mL vial IV (15:54)
== END 2021-10-05 15:02 | disposition home or self-care (01) ==
PROVIDERS: PCP Family Medicine; Visit Provider Specialist
DX: G50.1 Atypical facial pain (principal)
CPT/HCPCS: 70543; 70553; A9577

== ENCOUNTER 2021-11-02 13:42 | Outpatient (CLI) | payer MEDICAID, SELFPAY ==
--- NOTE | 2021-11-02 13:49 | USCV_ITS ---
Marlene Schroeder Age: 41 Gender: F : 1980 Exam Date: 11/02/2021 14:18 Ordering Phys: Sage Mckeon MD Technologist: NICHOLAS Exam Location: [facility] – [place], [place]_ Indication: HISTORY: CHRONIC bilateral courtney pain x 5-6 months. Ankle/calf swelling bilaterally during the day, relieved at night. Spider veins seen on both calf areas, and RIGHT distal thigh. Palpable varicosity LEFT lateral proximal thigh. No hx DVT. PROCEDURES: This study was performed in the 45 degree Reverse Trendelenberg position with Valsalva maneuver and release to elicit venous insufficiency if present. The venous duplex Doppler examination of both lower extremities was performed in the standard fashion. The following venous structures were evaluated: common femoral vein, profunda vein, proximal portion of the greater saphenous vein, superficial femoral vein, and the popliteal vein. In addition, the posterior tibial veins and the peroneal veins were evaluated. Bilaterally, the common femoral, superficial femoral, profunda femoral, popliteal, posterior tibial, greater saphenous veins, and the peroneal veins were identified and interrogated in the standard fashion. These veins were found to be easily compressible with spontaneous blood flow. No evidence of thrombus noted. The only significant insufficiency was seen in the GSV distal to the SFJ at 1.97 seconds. Otherwise, no significant insufficiencies seen in either the deep veins or the superficial veins, bilaterally. Serial compression, augmentation maneuvers, and spectral Doppler flow evaluation were performed and were normal. FINDINGS: The veins were found to be easily compressible with spontaneous blood flow. Non pulsatile flow pattern. CONCLUSIONS No evidence of DVT in the above-mentioned identifiable veins. Significant venous reflux of greater than 500 ms was noted at the greater saphenous vein on the right side, just distal to the saphenofemoral junction. The venous segment was 0.69 cm in diameter and at a depth of 1.38 cm. No other significant refluxes were noted either in the deep or the superficial veins. Dr Jose Alfredo Hendricks MD [facility] (Electronically Signed) Final Date: 14 November 2021 14:49 S
== END 2021-11-02 13:43 | disposition home or self-care (01) ==
LOC: RAD 13:47
PROVIDERS: PCP Family Medicine; Visit Provider Family Medicine
DX: I83.813 Varicose veins of bilateral lower extremities with pain (principal); I87.2 Venous insufficiency (chronic) (peripheral)
CPT/HCPCS: 73630; 93970

== ENCOUNTER 2021-11-19 08:35 | Outpatient (CLI) | payer MEDICAID, SELFPAY | END 2021-11-19 08:36 | disposition home or self-care (01) | PROVIDERS: PCP Family Medicine; Visit Provider Specialist | DX: Z01.89 Encounter for other specified special examinations (principal) | CPT/HCPCS: 86334; 86335 ==

== ENCOUNTER → 2021-11-22 07:51 | Outpatient (BNVA) | payer MEDICAID, SELFPAY | PROVIDERS: PCP Family Medicine; Visit Provider Specialist | DX: G96.01 Cranial cerebrospinal fluid leak, spontaneous (principal); J34.1 Cyst and mucocele of nose and nasal sinus; G43.711 Chronic migraine without aura, intractable, with status migrainosus; G50.1 Atypical facial pain; E66.9 Obesity, unspecified; Z68.41 Body mass index [BMI] 40.0-44.9, adult; F17.200 Nicotine dependence, unspecified, uncomplicated | CPT/HCPCS: 62270; 82945; 84157; 87070; 87075; 87205; 87327; 89050; 99214; 99215 ==

== ENCOUNTER 2021-11-23 09:59 | Outpatient (CLI) | payer MEDICAID, SELFPAY ==
--- NOTE | 2021-11-23 08:00 | CT_ITS ---
WS: [id number] CT venogram CEREBRAL ARTERIES HISTORY: FRONTAL SINUS/SINUS thrombosis TECHNIQUE: Pre and postcontrast imaging through the brain. CT renogram is performed of the dural veno us sinuses. . Coronal and sagittal reformats are submitted. Additional multi planar reformats of the cerebral arteries are submitted, MIP imaging also reviewed. All CT scans at [facility] use a t least one of these dose optimization techniques: automated exposure control; mA and/or kV adjustmen t per patient size (includes targeted exams where dose is matched to clinical indication); or iterati ve reconstruction. CONTRAST: Omnipaque 300; 95 mL IV. DLP: 1984.38 mGy.cm COMPARISON: MRI 10/05/2021. Noncontrast imaging of the brain is negative for acute hemorrhage or volume loss. Patient has a known expansile lesion in the RIGHT frontal and frontal ethmoid recess which has been previously described and visualized by MRI. Expansile destruction of the frontal cortex communicating through the frontal sinus and the inferior frontal lobe. No filling defects are noted within the superior sagittal sinus . Small caliber superior sagittal sinus over the frontal lobes. No occlusion or thrombosis identified . Small caliber RIGHT transverse sinus is similar to the prior MRI. This is probably a normal variati on. Limited enhancement of the internal jugular veins and the sigmoid sinus. No occlusion or thrombus identified. Straight sinus is normal. No inferior displacement of the cerebellar tonsils no intracranial hemorrhage.. CT/CT angio head [id number] IMPRESSION: 1. No dural venous sinus thrombosis identified. 2. Small caliber RIGHT internal jugular vein is a normal variant. 3. Small caliber but patent anterior superior sagittal sinus. 4. 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 This has been previously described by MRI.
[2021-11-23] MEDS: iohexol 300 mg/mL 100 mL Btl IV (11:44)
== END 2021-11-23 10:00 | disposition home or self-care (01) ==
LOC: RAD 10:01
PROVIDERS: PCP Family Medicine; Visit Provider Family Medicine
DX: G08 Intracranial and intraspinal phlebitis and thrombophlebitis (principal); J34.1 Cyst and mucocele of nose and nasal sinus
CPT/HCPCS: 70496

== ENCOUNTER 2021-12-14 09:32 | Emergency (ER) | payer MEDICAID, SELFPAY ==
[2021-12-14 09:39] VITALS: BP 164/93; PULSE 92; RESP 18; TEMP 37.4; O2SAT 96; BMI 38.9
--- NOTE | 2021-12-14 10:23 | W.ED.HA ---
Documented by User: DOUGLAS Mohan 12/14/21 14:44 HPI - Headache General: Chief Complaint: Headache Stated Complaint: Fever, Fluid from Nose Time Seen by Provider: 12/14/21 09:51 History of Present Illness: Patient presents for worsening headache over the last couple days. Patient continues to have drainage from her nose. Her cerebrospinal fluid is she was dressed by Dr. Andrade and Dr. Morales. Patient is scheduled to see gas distribution supervisor up in [place] on January 05 to have the cyst taken care of. Patient says drainage from her nose just pours out when she leans forward. And she said last couple days she has felt worse from feeling bad for the last 2 weeks. Says her neck feels stiff and hurts in the back of her neck She definitely has a headache and that is not getting better. She does not want to move her head much. Patient denies vomiting. Associated symptoms: Deny chest pain, fever(s), nausea, rash or vomiting Review of Systems Const: Denies: fever(s), chills or body aches Eyes: Denies: eye discomfort ENMT: Reports: nasal discharge (Dr. Fields lab order shows presence CSF. This was addressed by Dr. Bañuelos); Denies: throat pain Card: Denies: chest pain Resp: Denies: dyspnea GI: Denies: abdominal pain, nausea or vomiting Musc: Reports: neck pain Skin/Breast: Denies: rash Neuro: Reports: headache(s) Psych: Denies: depression or suicidal ideation PFSH ED PFSH: Medical History Fibromyalgia Surgical History History of appendectomy History of colonoscopy with polypectomy History of endoscopic sinus surgery History of hysterectomy History of oral surgery History of tonsillectomy Family History Denies family history of Anesthesia complication Bleeding disorder Social History Smoking and tobacco status: current every day smoker Physical Exam Const: COMMON NORMALS: no acute distress, patient oriented x3 and alert HENMT: COMMON NORMALS: normocephalic and external ears normal HEAD & SCALP: normocephalic EXTERNAL EAR: Yes external ears normal OTHER: Right nares slight moistness is noted Eye: COMMON NORMALS: EOMs intact bilaterally Neck/C-Spine: COMMON NORMALS: no lymphadenopathy and no JVD OTHER: Patient has tenderness to the back of her neck with palpation patient not wanting to move her head. Resp: COMMON NORMALS: normal respiratory effort and No use of accessory muscles Cardio: COMMON NORMALS: no JVD GI: INSPECTION: Yes normal to inspection Extremity: COMMON NORMALS: normal to inspection and full ROM Neuro: COMMON NORMALS: patient oriented x3 SENSORIUM/ORIENTATION: Yes alert MENINGEAL SIGNS: No nuccal rigidity PUPIL EXAM: Normal pupillary reactivity/response: bilateral Psych: COMMON NORMALS: mental status grossly normal Skin: COMMON NORMALS: no rashes or lesions noted GENERAL SKIN EXAM: no rashes or lesions noted Course Vital Signs: Vital signs: Vital Signs Temperature 99.3 F 12/14/21 09:39 Pulse Rate 92 12/14/21 09:39 Respiratory Rate 18 12/14/21 09:39 Blood Pressure 156/101 12/14/21 13:00 Pulse Oximetry 93 12/14/21 13:00 MDM - Headache Medical Decision Making I have discussed case with Dr. Devine and also spoke with Dr. Nazario at [facility]. He says that they have been treating this cerebrospinal fluid leak for for the last year. She does have a cyst in her sinus that they plan on repair on January 05. He states treat based on signs symptoms. Spinal tap was negative for any concerning findings as per Dr. Devine. Patient okay to discharge home. Patients headache is much improved. Blood pressure looks stable. Lab Data : 12/14/21 10:35 12/14/21 12:04 Laboratory Results WBC 10.5 10^3/uL (4.0-10.0) H 12/14/21 10:35 RBC 4.66 10^6/uL (4.1-5.3) 12/14/21 10:35 Hgb 14.2 g/dL (11.5-15.3) 12/14/21 10:35 Hct 43.8 % (37.0-47.0) 12/14/21 10:35 MCV 94.0 fl (81-99) 12/14/21 10:35 MCH 30.5 pg (28.0-34.0) 12/14/21 10:35 MCHC 32.4 g/dL (30.0-36.0) 12/14/21 10:35 RDW 14.3 % (12.1-15.1) 12/14/21 10:35 Plt Count 276 10^3/cmm (130-400) 12/14/21 10:35 MPV 11.9 fL (7.4-10.4) H 12/14/21 10:35 Neut % (Auto) 74.4 % 12/14/21 10:35 Lymph % (Auto) 19.1 % 12/14/21 10:35 [place] % (Auto) 4.7 % 12/14/21 10:35 Eos % (Auto) 0.9 % 12/14/21 10:35 Baso % (Auto) 0.5 % 12/14/21 10:35 Neut # (Auto) 7.85 10^3/uL (1.8-7.7) H 12/14/21 10:35 Lymph # (Auto) 2.0 10^3/uL (0.8-4.8) 12/14/21 10:35 [place] # (Auto) 0.5 10^3/uL (0.2-0.9) 12/14/21 10:35 Eos # (Auto) 0.1 10^3/uL (0.0-0.8) 12/14/21 10:35 Baso # (Auto) 0.1 10^3/uL (0.0-0.1) 12/14/21 10:35 Nucleated RBC % (auto) 0 % 12/14/21 10:35 Nucleated RBCs # 0.0 /100WBC 12/14/21 10:35 Sodium 138 mmol/L (136-145) 12/14/21 12:04 Potassium 3.7 mmol/L (3.5-5.1) 12/14/21 12:04 Chloride 105 mmol/L (98-107) 12/14/21 12:04 Carbon Dioxide 20 mmol/L (22-29) L 12/14/21 12:04 Anion Gap 16.7 (5-19) 12/14/21 12:04 BUN 12 mg/dL (6-20) 12/14/21 12:04 Creatinine 0.6 mg/dL (0.5-0.9) 12/14/21 12:04 GFR Calculation 110.7 mL/min (90-130) 12/14/21 12:04 Glucose 160 mg/dL (65-115) H 12/14/21 12:04 Calculated Osmolality 289 mOsm/kg (285-295) 12/14/21 12:04 Calcium 8.5 mg/dL (8.5-10.5) 12/14/21 12:04 Urine Color Yellow (Yellow) 12/14/21 10:58 Urine Appearance Clear (CLEAR) 12/14/21 10:58 Urine pH 7 (5-7) 12/14/21 10:58 Ur Specific [place] 1.015 (1.005-1.030) 12/14/21 10:58 Urine Protein 1+ (Negative) H 12/14/21 10:58 Urine Glucose (UA) Norm (Normal) 12/14/21 10:58 Urine Ketones Negative (Negative) 12/14/21 10:58 Urine Blood 2+ (Negative) H 12/14/21 10:58 Urine Nitrate Negative (Negative) 12/14/21 10:58 Urine Bilirubin Neg (Negative) 12/14/21 10:58 Urine Urobilinogen Norm mg/dL (Negative) 12/14/21 10:58 Ur Leukocyte Esterase Negative (Negative) 12/14/21 10:58 Urine RBC 0-4 /hpf (0-2) H 12/14/21 10:58 Urine WBC 0-4 /hpf (0-5) H 12/14/21 10:58 Ur Squamous Epith Cells 0-4 /hpf (0-5) H 12/14/21 10:58 Amorphous Sediment Not Reportable 12/14/21 10:58 Urine Bacteria 1+ /hpf (NONE) H 12/14/21 10:58 Urine Mucus 1+ /hpf 12/14/21 10:58 CSF Appearance Clear (CLEAR) 12/14/21 13:05 CSF Color Colorless (COLORLESS) 12/14/21 13:05 CSF WBC 1 /uL (0-5) 12/14/21 13:05 CSF RBC 0 10^3/uL (0-0) 12/14/21 13:05 CSF Mononuclear # Auto 0.000 10^3/uL (50-90) L 12/14/21 13:05 CSF Mononuclear WBCs % 0 % (50-90) L 12/14/21 13:05 CSF Polynuclear WBCs # 0.001 10^3/uL (0-10) 12/14/21 13:05 CSF Polynuclear WBCs % 100 % (0-10) H 12/14/21 13:05 CSF Glucose 78 mg/dL (40-70) H 12/14/21 13:05 CSF Total Protein 35 mg/dL (15-45) 12/14/21 13:05 Discharge Plan Discharge Patient Disposition: Home Clinical Impression: Headache Condition: Stable Prescriptions: No Action naproxen 500 mg tablet 500 mg PO BID PRN0RF topiramate [Topamax] 25 mg tablet 25 mg PO DAILY Qty: 30 2RF terbinafine HCl 250 mg tablet 250 mg PO DAILY 14 Days Qty: 14 0RF Rx Instructions: Failed 6 OTC topicals hydrocodone-acetaminophen 10-325 mg tablet 1 tab PO TID PRN (Reason: Pain) 0RF tramadol 50 mg tablet See Rx Instructions .ROUTE .COMPLEX 0RF Rx Instructions: 50 mg orally TAKE 1-2 TABS TID PRN FOR FIBROMYLAGIA PAIN. naproxen 500 mg Tablet,Delayed Release (Dr/Ec) 500 mg PO BID PRN (Reason: Pain) 0RF furosemide 20 mg tablet 20 mg PO PRN PRN (Reason: Edema) 0RF albuterol sulfate [ProAir HFA] 90 mcg/actuation HFA aerosol inhaler 1 - 2 puff INHALATION Q4H PRN (Reason: Shortness Of Breath) 0RF Premarin 0.3 mg tablet 0.3 mg PO DAILY 0RF azelastine 137 mcg (0.1 %) aerosol,spray See Rx Instructions .ROUTE .COMPLEX 0RF Rx Instructions: intranasally 2 SPRAYS IN EACH NOSTRIL BID potassium chloride 1 tab PO DAILY 0RF desvenlafaxine succinate 50 mg tablet extended release 24 hr 50 mg PO DAILY@0600 0RF aripiprazole 2 mg tablet 10 mg PO DAILY@0600 0RF Discharge Orders: Discharge ED (Routine); Ordered 12/14/21 Ordered By: Macario Vieyra Referrals: Sage Mckeno MD [Primary Care Provider] - Discharge Diet: Advance as tolerated Discharge Activity: Resume usual activity Patient Instructions: Hypertension (ED), Lumbar Puncture (ED) Activity Restrictions/Additional Instructions: Keep appointment Dr. Miller in [place] as scheduled. Continue present medications that you are on. Follow-up your primary care return here as needed. Coding Level of Care Code ED Theatrical Scenic Designer for Chg Fwd Exam Comprehensive Documented by User: Preston Devine MD 12/20/21 21:03 HPI - Headache General: Chief Complaint: Headache Stated Complaint: Fever, Fluid from Nose Time Seen by Provider: 12/14/21 09:51 PFSH ED PFSH: Medical History Fibromyalgia Surgical History History of appendectomy History of colonoscopy with polypectomy History of endoscopic sinus surgery History of hysterectomy History of oral surgery History of tonsillectomy Family History Denies family history of Anesthesia complication Bleeding disorder Social History Smoking and tobacco status: current every day smoker Procedures Lumbar Puncture Time Out Performed: Yes Patient Position: left lateral decubitus Skin Prep: Povidone-Iodine 1% and 0.5% Chlorhexidine/Alcohol Local Anesthetic: other anesthetic (lidocaine allergy, chloroprocaine) Amount of anesthesia used (mL): 4 Spinal Needle Gauge: 20G Interspace Used: L4-L5 Opening Pressure (cmH20): 36 (performed with knee to chest positioning) Fluid Initially Obtained: clear Complications: none Course Vital Signs: Vital signs: Vital Signs Temperature 99.3 F 12/14/21 09:39 Pulse Rate 92 12/14/21 09:39 Respiratory Rate 18 12/14/21 09:39 Blood Pressure 156/101 12/14/21 13:00 Pulse Oximetry 93 12/14/21 13:00 MDM - Headache Medical Decision Making I have discussed case with Dr. Devine and also spoke with Dr. Nazario at [facility]. He says that they have been treating this cerebrospinal fluid leak for for the last year. She does have a cyst in her sinus that they plan on repair on January 05. He states treat based on signs symptoms. Spinal tap was negative for any concerning findings as per Dr. Devine. Patient okay to discharge home. Patients headache is much improved. Blood pressure looks stable. I discussed this case with Macario Vieyra NP. I personally evaluated the patient and reperformed peña portions of E/M. 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 She has previously been evaluated at outside hospital which does lead to some uncertainty regarding exact cause of likely symptoms. She reports being headache free until a few days ago and now presenting with worsening headache, subjective chills/fever, and neck stiffness. I discussed possible etiologies of patient symptoms with her. Unfortunately, to rule out potentially life-threatening condition such as meningitis a repeat lumbar puncture is warranted. I discussed risks and benefits and patient provided informed consent. I performed a lumbar pressure without apparent complication. I personally interpreted labs. I do not feel that repeat imaging is necessary at this time. Satisfactory for further outpatient evaluation. Preston Devine MD Emergency Medicine Lab Data : 12/14/21 10:35 12/14/21 12:04 Laboratory Results WBC 10.5 10^3/uL (4.0-10.0) H 12/14/21 10:35 RBC 4.66 10^6/uL (4.1-5.3) 12/14/21 10:35 Hgb 14.2 g/dL (11.5-15.3) 12/14/21 10:35 Hct 43.8 % (37.0-47.0) 12/14/21 10:35 MCV 94.0 fl (81-99) 12/14/21 10:35 MCH 30.5 pg (28.0-34.0) 12/14/21 10:35 MCHC 32.4 g/dL (30.0-36.0) 12/14/21 10:35 RDW 14.3 % (12.1-15.1) 12/14/21 10:35 Plt Count 276 10^3/cmm (130-400) 12/14/21 10:35 MPV 11.9 fL (7.4-10.4) H 12/14/21 10:35 Neut % (Auto) 74.4 % 12/14/21 10:35 Lymph % (Auto) 19.1 % 12/14/21 10:35 [place] % (Auto) 4.7 % 12/14/21 10:35 Eos % (Auto) 0.9 % 12/14/21 10:35 Baso % (Auto) 0.5 % 12/14/21 10:35 Neut # (Auto) 7.85 10^3/uL (1.8-7.7) H 12/14/21 10:35 Lymph # (Auto) 2.0 10^3/uL (0.8-4.8) 12/14/21 10:35 [place] # (Auto) 0.5 10^3/uL (0.2-0.9) 12/14/21 10:35 Eos # (Auto) 0.1 10^3/uL (0.0-0.8) 12/14/21 10:35 Baso # (Auto) 0.1 10^3/uL (0.0-0.1) 12/14/21 10:35 Nucleated RBC % (auto) 0 % 12/14/21 10:35 Nucleated RBCs # 0.0 /100WBC 12/14/21 10:35 Sodium 138 mmol/L (136-145) 12/14/21 12:04 Potassium 3.7 mmol/L (3.5-5.1) 12/14/21 12:04 Chloride 105 mmol/L (98-107) 12/14/21 12:04 Carbon Dioxide 20 mmol/L (22-29) L 12/14/21 12:04 Anion Gap 16.7 (5-19) 12/14/21 12:04 BUN 12 mg/dL (6-20) 12/14/21 12:04 Creatinine 0.6 mg/dL (0.5-0.9) 12/14/21 12:04 GFR Calculation 110.7 mL/min (90-130) 12/14/21 12:04 Glucose 160 mg/dL (65-115) H 12/14/21 12:04 Calculated Osmolality 289 mOsm/kg (285-295) 12/14/21 12:04 Calcium 8.5 mg/dL (8.5-10.5) 12/14/21 12:04 Urine Color Yellow (Yellow) 12/14/21 10:58 Urine Appearance Clear (CLEAR) 12/14/21 10:58 Urine pH 7 (5-7) 12/14/21 10:58 Ur Specific [place] 1.015 (1.005-1.030) 12/14/21 10:58 Urine Protein 1+ (Negative) H 12/14/21 10:58 Urine Glucose (UA) Norm (Normal) 12/14/21 10:58 Urine Ketones Negative (Negative) 12/14/21 10:58 Urine Blood 2+ (Negative) H 12/14/21 10:58 Urine Nitrate Negative (Negative) 12/14/21 10:58 Urine Bilirubin Neg (Negative) 12/14/21 10:58 Urine Urobilinogen Norm mg/dL (Negative) 12/14/21 10:58 Ur Leukocyte Esterase Negative (Negative) 12/14/21 10:58 Urine RBC 0-4 /hpf (0-2) H 12/14/21 10:58 Urine WBC 0-4 /hpf (0-5) H 12/14/21 10:58 Ur Squamous Epith Cells 0-4 /hpf (0-5) H 12/14/21 10:58 Amorphous Sediment Not Reportable 12/14/21 10:58 Urine Bacteria 1+ /hpf (NONE) H 12/14/21 10:58 Urine Mucus 1+ /hpf 12/14/21 10:58 CSF Appearance Clear (CLEAR) 12/14/21 13:05 CSF Color Colorless (COLORLESS) 12/14/21 13:05 CSF WBC 1 /uL (0-5) 12/14/21 13:05 CSF RBC 0 10^3/uL (0-0) 12/14/21 13:05 CSF Mononuclear # Auto 0.000 10^3/uL (50-90) L 12/14/21 13:05 CSF Mononuclear WBCs % 0 % (50-90) L 12/14/21 13:05 CSF Polynuclear WBCs # 0.001 10^3/uL (0-10) 12/14/21 13:05 CSF Polynuclear WBCs % 100 % (0-10) H 12/14/21 13:05 CSF Glucose 78 mg/dL (40-70) H 12/14/21 13:05 CSF Total Protein 35 mg/dL (15-45) 12/14/21 13:05 Discharge Plan Discharge Patient Disposition: Home Clinical Impression: Headache Condition: Stable Prescriptions: No Action naproxen 500 mg tablet 500 mg PO BID PRN0RF topiramate [Topamax] 25 mg tablet 25 mg PO DAILY Qty: 30 2RF terbinafine HCl 250 mg tablet 250 mg PO DAILY 14 Days Qty: 14 0RF Rx Instructions: Failed 6 OTC topicals hydrocodone-acetaminophen 10-325 mg tablet 1 tab PO TID PRN (Reason: Pain) 0RF tramadol 50 mg tablet See Rx Instructions .ROUTE .COMPLEX 0RF Rx Instructions: 50 mg orally TAKE 1-2 TABS TID PRN FOR FIBROMYLAGIA PAIN. naproxen 500 mg Tablet,Delayed Release (Dr/Ec) 500 mg PO BID PRN (Reason: Pain) 0RF furosemide 20 mg tablet 20 mg PO PRN PRN (Reason: Edema) 0RF albuterol sulfate [ProAir HFA] 90 mcg/actuation HFA aerosol inhaler 1 - 2 puff INHALATION Q4H PRN (Reason: Shortness Of Breath) 0RF Premarin 0.3 mg tablet 0.3 mg PO DAILY 0RF azelastine 137 mcg (0.1 %) aerosol,spray See Rx Instructions .ROUTE .COMPLEX 0RF Rx Instructions: intranasally 2 SPRAYS IN EACH NOSTRIL BID potassium chloride 1 tab PO DAILY 0RF desvenlafaxine succinate 50 mg tablet extended release 24 hr 50 mg PO DAILY@0600 0RF aripiprazole 2 mg tablet 10 mg PO DAILY@0600 0RF Discharge Orders: Discharge ED (Routine); Ordered 12/14/21 Ordered By: Macario Vieyra Referrals: Sage Mckeon MD [Primary Care Provider] - Discharge Diet: Advance as tolerated Discharge Activity: Resume usual activity Patient Instructions: Hypertension (ED), Lumbar Puncture (ED) Activity Restrictions/Additional Instructions: Keep appointment Dr. Miller in [place] as scheduled. Continue present medications that you are on. Follow-up your primary care return here as needed. Coding Level of Care Code ED Theatrical Scenic Designer for Chg Fwd Exam Comprehensive
[2021-12-14] MEDS: sodium chloride 0.9% 1,000 ML 125 ML IV (10:36)
[2021-12-14 10:38] VITALS: BP 197/122
[2021-12-14] MEDS: cloNIDine 0.1 mg Tablet 0.2 MG PO (10:38)
[2021-12-14] MEDS: metoclopramide 5 mg/mL SDV 2 mL IVP (10:38)
[2021-12-14] MEDS: diphenhydrAMINE 50 mg/mL SDV 1mL 25 MG IVP (10:38)
[2021-12-14 10:47] LABS: Basophils # 0.1 10^3/uL (0.0-0.1); Basophils % 0.5 %; Eosinophils # 0.1 10^3/uL (0.0-0.8); Eosinophils % 0.9 %; Hematocrit 43.8 % (37.0-47.0); Hemoglobin 14.2 g/dL (11.5-15.3); Lymphocytes % 19.1 %; Mean Corpuscular HGB Conc 32.4 g/dL (30.0-36.0); Mean Corpuscular Hemoglobin 30.5 pg (28.0-34.0); Mean Platelet Volume 11.9 fL (7.4-10.4); Monocytes # 0.5 10^3/uL (0.2-0.9); Monocytes % 4.7 %; Neutrophils # 7.85 10^3/uL (1.8-7.7); Neutrophils % 74.4 %; Nucleated Red Blood Cells % 0 %; Platelet Count 276 10^3/cmm (130-400); Red Blood Count 4.66 10^6/uL (4.1-5.3); Red Cell Distribution Width 14.3 % (12.1-15.1); White Blood Count 10.5 10^3/uL (4.0-10.0)
[2021-12-14 10:49] VITALS: O2SAT 98
[2021-12-14 11:47] LABS: Add Urine Microscopic? YES; Bacteria Urine 1+ /hpf; Bilirubin Urine Neg (Negative); Blood Urine 2+ (Negative); Glucose Urine UA Norm (Normal); Ketones Urine Negative (Negative); Leukocyte Esterase Urine Negative (Negative); Mucus Urine 1+ /hpf; Nitrate Urine Negative (Negative); Protein Urine 1+ (Negative); RBC Urine 0-4 /hpf (0-2); Specific Gravity, Urine 1.015 (1.005-1.030); Squamous Epithelial Cell Urine 0-4 /hpf (0-5); Urine Appearance Clear (CLEAR); Urine Color Yellow (Yellow); Urobilinogen Urine Norm (Negative); WBC Urine 0-4 /hpf (0-5); pH Urine 7 (5-7)
[2021-12-14 12:30] VITALS: BP 147/82; O2SAT 91
[2021-12-14 12:31] LABS: Anion Gap 16.7 (5-19); Blood Urea Nitrogen 12 mg/dL (6-20); Calcium 8.5 mg/dL (8.5-10.5); Carbon Dioxide 20 mmol/L (22-29); Chloride 105 mmol/L (98-107); Glomerular Filtration Rate 110.7 mL/min (90-130); Glucose 160 mg/dL (65-115); Osmolality Calculated 289 mOsm/kg (285-295); Potassium 3.7 mmol/L (3.5-5.1); Sodium 138 mmol/L (136-145)
[2021-12-14 13:00] VITALS: BP 156/101; O2SAT 93
[2021-12-14 14:11] LABS: Mononuclear WBC CSF % 0 % (50-90); Polynuclear Cells ,CSF # 0.001 10^3/uL (0-10); Polynuclear WBC CSF % 100 % (0-10); Red Blood Cell CSF 0 10^3/uL (0-0); White Blood Cell CSF 1 /uL (0-5)
[2021-12-14 14:16] LABS: Glucose CSF 78 mg/dL (40-70); Total Protein CSF 35 mg/dL (15-45)
[2021-12-14 14:17] LABS: Appearance CSF CLEAR (CLEAR); Color CSF COLORLESS (COLORLESS)
== END 2021-12-14 14:56 | disposition home or self-care (01) ==
PROVIDERS: Emergency Medicine; Emergency Provider Nurse Practitioner Family; Family Provider Family Medicine; PCP Family Medicine
DX: R51.9 Headache, unspecified (principal); F17.210 Nicotine dependence, cigarettes, uncomplicated
CPT/HCPCS: 36415; 62270; 80048; 80503; 81001; 82945; 84157; 85025; 87070; 87075; 87205; 88108; 89050; 96361; 96374; 96375; 99284; J1200; J2765; J2930; J7030

== ENCOUNTER → 2021-12-28 08:08 | Outpatient (BNVA) | payer MEDICAID, SELFPAY | PROVIDERS: Family Provider Family Medicine; PCP Family Medicine; Visit Provider Specialist | DX: J34.1 Cyst and mucocele of nose and nasal sinus (principal); G43.711 Chronic migraine without aura, intractable, with status migrainosus; E66.9 Obesity, unspecified; Z68.41 Body mass index [BMI] 40.0-44.9, adult; F17.200 Nicotine dependence, unspecified, uncomplicated | CPT/HCPCS: 99214 ==

== ENCOUNTER → 2021-12-29 13:04 | Outpatient (BNVA) | payer MEDICAID, SELFPAY | PROVIDERS: Family Provider Family Medicine; PCP Family Medicine; Visit Provider Thoracic Surgery (Cardiothoracic Vascular Surgery) | DX: I83.90 Asymptomatic varicose veins of unspecified lower extremity (principal); Z87.891 Personal history of nicotine dependence | CPT/HCPCS: 99202 ==

== ENCOUNTER → 2022-01-11 08:17 | Outpatient (BNVA) | payer MEDICAID, SELFPAY | PROVIDERS: Family Provider Family Medicine; PCP Family Medicine; Visit Provider Podiatrist Foot & Ankle Surgery | DX: L60.3 Nail dystrophy (principal) | CPT/HCPCS: 11750 ==

== ENCOUNTER → 2022-02-08 10:47 | Outpatient (BNVA) | payer MEDICAID, SELFPAY | PROVIDERS: PCP Family Medicine; Visit Provider Podiatrist Foot & Ankle Surgery | DX: B35.3 Tinea pedis (principal) | CPT/HCPCS: 99214 ==

== ENCOUNTER 2022-03-03 11:10 | Outpatient (CLI) | payer MEDICAID, SELFPAY ==
--- NOTE | 2022-03-03 | XR_ITS ---
WS: [id number] Exam: XR abdomen 1V* [id number] Date/Time of Exam: 03/03/2022 12:00 AM Reason For Exam: EPIGASTRIC PAIN No bowel obstruction or free air. No sign of the organ enlargement. Bony structures are intact. Pelvi c calcifications noted which are probably phleboliths. Bony structures are intact. Moderate amount of stool in the colon. 5 mm right abdominal calcification that may represent a gallstone or renal stone . XR/XR abdomen 1V* [id number] IMPRESSION: 1. No acute abdominal process. 2. 5 mm calcification superimposes the right abdomen and may represent a renal stone or a gallstone.
== END 2022-03-03 11:11 | disposition home or self-care (01) ==
LOC: RADOUTREAD 11:11
PROVIDERS: PCP Family Medicine; Visit Provider Nurse Practitioner
DX: R10.13 Epigastric pain (principal)
CPT/HCPCS: 74018

== ENCOUNTER → 2022-05-18 08:07 | Outpatient (BNVA) | payer MEDICAID, SELFPAY | PROVIDERS: PCP Family Medicine; Visit Provider Podiatrist Foot & Ankle Surgery | DX: L60.3 Nail dystrophy (principal); L60.0 Ingrowing nail; B35.3 Tinea pedis | CPT/HCPCS: 11750; A6219; A6446 ==

== ENCOUNTER → 2022-05-25 09:41 | Outpatient (BNVA) | payer MEDICAID, SELFPAY | PROVIDERS: PCP Family Medicine; Visit Provider Nurse Practitioner Women's Health | DX: N89.8 Other specified noninflammatory disorders of vagina (principal) | CPT/HCPCS: 87481; 87798 ==

== ENCOUNTER → 2022-05-31 07:49 | Outpatient (BNVA) | payer MEDICAID, SELFPAY | PROVIDERS: PCP Family Medicine; Visit Provider Podiatrist Foot & Ankle Surgery | DX: L60.3 Nail dystrophy (principal) | CPT/HCPCS: 99213 ==

== ENCOUNTER 2022-06-22 17:19 | Outpatient (CLI) | payer MEDICAID, SELFPAY | END 2022-06-22 17:20 | disposition home or self-care (01) | LOC: LAB 17:21 | PROVIDERS: PCP Family Medicine; Visit Provider Nurse Practitioner Women's Health | DX: Z11.3 Encounter for screening for infections with a predominantly sexual mode of transmission (principal) | CPT/HCPCS: 36415; 86592; 86803; 87340; 87529; 87806; 88305 ==

== ENCOUNTER → 2022-06-29 12:50 | Outpatient (BNVA) | payer MEDICAID, SELFPAY | PROVIDERS: PCP Family Medicine; Visit Provider Thoracic Surgery (Cardiothoracic Vascular Surgery) | DX: I83.93 Asymptomatic varicose veins of bilateral lower extremities (principal) | CPT/HCPCS: 99212 ==

== ENCOUNTER → 2022-07-03 11:12 | Outpatient (BNVA) | payer MEDICAID, SELFPAY | PROVIDERS: PCP Family Medicine; Visit Provider Nurse Practitioner Women's Health | DX: N90.89 Other specified noninflammatory disorders of vulva and perineum (principal) | CPT/HCPCS: 87070; 87205 ==

== ENCOUNTER 2022-07-20 12:29 | Outpatient (CLI) | payer MEDICAID, SELFPAY ==
--- NOTE | 2022-07-20 13:03 | MM_ITS ---
WS: [id number] BILATERAL 3D TOMOSYNTHESIS DIGITAL DIAGNOSTIC MAMMOGRAPHY WITH CAD CLINICAL INFORMATION: BREAST LUMP HISTORY: LEFT breast lump COMPARISON: None. TECHNIQUE: Bilateral CC, MLO, and ML views. FINDINGS: Palpable marker lower inner LEFT breast. No underlying parenchymal abnormalities. Ultrasoun d of this area is pending. A few incidental tiny punctate calcifications. Intramammary lymph node RIG HT breast. Scattered fibroglandular densities bilaterally. RIGHT breast is unremarkable. Ultrasound LEFT breast described below ULTRASOUND BREAST LEFT TECHNIQUE: Ultrasound left breast focused area of concern. CLINICAL INFORMATION: BREAST LUMP COMPARISON: None. FINDINGS: Ultrasound LEFT breast at the 7:00 position 3 cm the nipple. Normal underlying parenchymal tissue. No cystic or solid lesions. No lesions to target for biopsy. Recommend return to annual screening mammo graphy. MM/[place] [id number] IMPRESSION: BI-RADS: 2-Benign FOLLOW UP: 1 Year Follow-up Recommend return to annual screening mammography.
--- NOTE | 2022-07-20 13:09 | US_ITS ---
WS: [id number] BILATERAL 3D TOMOSYNTHESIS DIGITAL DIAGNOSTIC MAMMOGRAPHY WITH CAD CLINICAL INFORMATION: BREAST LUMP HISTORY: LEFT breast lump COMPARISON: None. TECHNIQUE: Bilateral CC, MLO, and ML views. FINDINGS: Palpable marker lower inner LEFT breast. No underlying parenchymal abnormalities. Ultrasoun d of this area is pending. A few incidental tiny punctate calcifications. Intramammary lymph node RIG HT breast. Scattered fibroglandular densities bilaterally. RIGHT breast is unremarkable. Ultrasound LEFT breast described below ULTRASOUND BREAST LEFT TECHNIQUE: Ultrasound left breast focused area of concern. CLINICAL INFORMATION: BREAST LUMP COMPARISON: None. FINDINGS: Ultrasound LEFT breast at the 7:00 position 3 cm the nipple. Normal underlying parenchymal tissue. No cystic or solid lesions. No lesions to target for biopsy. Recommend return to annual screening mammo graphy. US/US breast LT limited* [id number] IMPRESSION: BI-RADS: 2-Benign FOLLOW UP: 1 Year Follow-up Recommend return to annual screening mammography.
== END 2022-07-20 12:30 | disposition home or self-care (01) ==
LOC: RAD 12:31
PROVIDERS: PCP Family Medicine; Visit Provider Family Medicine
DX: N63.20 Unspecified lump in the left breast, unspecified quadrant (principal)
CPT/HCPCS: 76642; 77062

== ENCOUNTER 2022-11-25 05:48 | Emergency (ER) | payer MEDICAID, SELFPAY ==
[2022-11-25 05:54] VITALS: BP 134/83; PULSE 74; RESP 18; TEMP 36.3; O2SAT 97; BMI 44.1
--- NOTE | 2022-11-25 06:00 | ED_ITS ---
HPI - Abdominal Pain General: Chief Complaint: Abdominal Pain Stated Complaint: abd pain Time Seen by Provider: 11/25/22 05:59 History of Present Illness: Ms. Schroeder is a 42-year-old lady with history of hysterectomy and appendectomy, insulin-dependent diabetes presenting to the emergency department for abdominal pain. She reports onset of symptoms gradually approximately 2 weeks ago and has had basically constant though varying intensity symptoms since that time. Primarily she endorses right lower quadrant pain with radiation to the right flank and sometimes left flank. Asso ciated with loose and more frequent stools, denies urinary symptoms, she has had nausea but no vomiting. Over the past 2 nights symptoms have become more intense and severe. Intensity is currently moderate. No other specific changes in health, exacerbating, or alleviating factors identified. Onset (ago): week(s) Pain Consistency: constant and intermittent Location: RLQ Severity: moderate Quality: cramping, aching and fullness Radiation: RUQ, L flank and R flank Migration to: no migration Exacerbating factors: nothing Relieving factors: nothing Associated Symptoms: Reports diarrhea and nausea; Denies hematuria and vomiting Review of Systems General: Reports: 10 or more systems reviewed and unremarkable except in HPI and below GI: Reports: nausea and diarrhea; Denies: vomiting : Denies: hematuria PFSH ED PFSH: Medical History CSF leak from nose Fibromyalgia Hypertension Meningitis due to bacteria Mucocele of frontal sinus No pertinent past medical history neghx: dm,thyroid,dvt/pe PCP: Dr. Mckeon PCR DNA positive for HSV2 (~05/2022) Surgical History History of appendectomy History of colonoscopy with polypectomy History of endoscopic sinus surgery History of oral surgery History of surgery of head (~03/10/22) leaking spinal fluid through nose, correct hemorrhage History of tonsillectomy Hx of dilation and curettage (~01/17/05) 01/17/2005--Diagnoses: Delayed bleeding (6 weeks). Performed by [address] Reji Alan at [facility] in [place], [place]. Hx of hysterectomy (~07/31/06) Laparoscopic assisted vaginal hysterectomy with right salpingo-oophorectomy and destruction of left ovarian cyst. Diagnosis: Chronic pelvic pain. Performed by Dr. Reji Alan at [facility] in [place], [place] Hx of laparoscopy 1----04/25/2006--Right ovarian cystectomy. Diagnosis: Pelvic pain, ruptured ovarian cyst. Performed by Dr. Shemar Lomax at [facility] in [place], [place] 2-----11/22/2007, Lysis of adhesions with left salpingectomy. Diagnosis: Chronic pelvic pain. Performed by Dr. Reji Alan at [facility] in [place], [place]. 3------ 11/10/2008 Left salpingo-oophorectomy with lysis of adhesions. Diagnosis: Chronic pelvic pain. Performed by Dr. Reji Alan at [facility] in [place], [place]. 4------ Diagnostic. No significant findings found. Diagnosis: Chronic pelvic pain. Performed by Dr. Reji Alan at [facility] in [place], [place]. Hx of removal of cyst Removed from L breast Hx of tubal ligation 10/27/2004, tubal ligation. Performed by Dr. Reji Alan at [facility] in [place], [place]. S/P matrixectomy of toe Family History Family/Other Breast cancer Paternal Aunt--dx age unknown Grandmother Breast cancer Maternal--dx age unknown Denies family history of Colon cancer Ovarian cancer Diabetes Heart disease Hypercholesteremia Hypertension Uterine cancer Thyroid disease Stroke Physical Exam Const: COMMON NORMALS: alert GENERAL APPEARANCE: cooperative and well developed HENMT: COMMON NORMALS: normocephalic and atraumatic HEAD & SCALP: normocephalic and atraumatic Eye: COMMON NORMALS: conjunctivae normal CONJUNCTIVA: Yes conjunctivae normal SCLERA: sclerae normal Neck/C-Spine: COMMON NORMALS: supple GENERAL: Yes trachea midline Resp: COMMON NORMALS: normal respiratory effort and clear to auscultation bilaterally EFFORT & INSPECTION: Yes able to speak in complete sentences AUSCULTATION: clear to auscultation bilaterally Cardio: COMMON NORMALS: regular rate and regular rhythm RATE: regular rate RHYTHM: regular rhythm GI: COMMON NORMALS: Soft to palpation PALPATION: Yes Soft to palpation, Yes Tenderness to palpation present (GI), No Guarding due to palpation present (GI) and No Rigid due to palpation Extremity: GENERAL: Yes normal exam except as noted and No edema Neuro: COMMON NORMALS: moves all extremities SENSORIUM/ORIENTATION: Yes alert and No Orientation impaired Psych: COMMON NORMALS: mental status grossly normal and Normal thought process present THOUGHT PROCESS: Normal thought process present Course Vital Signs: Vital signs: Vital Signs Temperature 97.4 F L 11/25/22 05:54 Pulse Rate 72 11/25/22 06:29 Respiratory Rate 16 11/25/22 06:29 Blood Pressure 128/76 11/25/22 06:29 Pulse Oximetry 95 11/25/22 06:29 Oxygen Delivery Me thod 11/25/22 06:29 MDM - Abdominal Pain Medical Decision Making 42-year-old lady presenting with abdominal symptoms. Patient is nontoxic. Exam as above with abdominal tenderness, no evidence of acute surgical abdomen. Labs notable for minimal leukocytosis, perhaps mild evidence of dehydration on metabolic panel. Transaminitis is present. There is no evidence of urinary tract infection. Hepatitis acute panel is negative. CT abdomen and pelvis demonstrate no acute intra-abdominal finding. Patient does have a hepatic steatosis which is known to her, this likely explains the transaminitis. Patient treated during ED course with IV fluids, analgesia, she had actually probably the most improved with with Bentyl. She is able to tolerate p.o. intake. Most likely etiology of patient's symptoms is unspecified abdominal pain with associated symptoms. The results of ED evaluation were discussed with the patient including prescriptions and/or symptomatic cares (if applicable) including appropriate and responsible use, followup plan, and return precautions. The patient verbalized understanding and felt safe for discharge. Medical Records I reviewed the patient's medical records. Lab Data I reviewed the patient's lab results. 11/25/22 06:35 11/25/22 06:35 Labs/Radiology: Radiology Impressions Abdomen/Pelvis CT 11/25/22 07:23 IMPRESSION: No acute findings. Laboratory Results WBC 10.7 10^3/uL (4.0-10.0) H 11/25/22 06:35 RBC 5.05 10^6/uL (4.1-5.3) 11/25/22 06:35 Hgb 14.5 g/dL (11.5-15.3) 11/25/22 06:35 Hct 46.6 % (37.0-47.0) 11/25/22 06:35 MCV 92.3 fl (81-99) 11/25/22 06:35 MCH 28.7 pg (28.0-34.0) 11/25/22 06:35 MCHC 31.1 g/dL (30.0-36.0) 11/25/22 06:35 RDW 13.1 % (12.1-15.1) 11/25/22 06:35 Plt Count 278 10^3/cmm (130-400) 11/25/22 06:35 MPV 11.0 fL (7.4-10.4) H 11/25/22 06:35 Neut % (Auto) 45.9 % 11/25/22 06:35 Lymph % (Auto) 44.7 % 11/25/22 06:35 [place] % (Auto) 5.3 % 11/25/22 06:35 Eos % (Auto) 3.2 % 11/25/22 06:35 Baso % (Auto) 0.7 % 11/25/22 06:35 Neut # (Auto) 4.91 10^3/uL (1.8-7.7) 11/25/22 06:35 Lymph # (Auto) 4.8 10^3/uL (0.8-4.8) 11/25/22 06:35 [place] # (Auto) 0.6 10^3/uL (0.2-0.9) 11/25/22 06:35 Eos # (Auto) 0.3 10^3/uL (0.0-0.8) 11/25/22 06:35 Baso # (Auto) 0.1 10^3/uL (0.0-0.1) 11/25/22 06:35 Nucleated RBC % (auto) 0 % 11/25/22 06:35 Nucleated RBCs # 0.0 /100WBC 11/25/22 06:35 Sodium 137 mmol/L (136-145) 11/25/22 06:35 Potassium 4.4 mmol/L (3.5-5.1) 11/25/22 06:35 Chloride 97 mmol/L (98-107) L 11/25/22 06:35 Carbon Dioxide 26 mmol/L (22-29) 11/25/22 06:35 Anion Gap 18.4 (5-19) 11/25/22 06:35 BUN 12 mg/dL (6-20) 11/25/22 06:35 Creatinine 0.7 mg/dL (0.5-0.9) 11/25/22 06:35 GFR Calculation 92.2 mL/min (90-130) 11/25/22 06:35 Glucose 105 mg/dL (65-115) 11/25/22 06:35 Calculated Osmolality 284 mOsm/kg (285-295) L 11/25/22 06:35 Calcium 10.0 mg/dL (8.5-10.5) 11/25/22 06:35 Total Bilirubin 0.3 mg/dL (0.15-1.2) 11/25/22 06:35 AST 43 U/L (0-32) H 11/25/22 06:35 ALT 57 U/L (0-33) H 11/25/22 06:35 Alkaline Phosphatase 105 U/L (35-105) 11/25/22 06:35 Total Protein 8.2 g/dL (6.6-8.7) 11/25/22 06:35 Albumin 4.3 g/dL (3.5-5.2) 11/25/22 06:35 Globulin 3.9 g/dL (1.3-4.6) 11/25/22 06:35 Lipase 50 U/L (13-60) 11/25/22 06:35 Urine Color Yellow (Yellow) 11/25/22 07:05 Urine Appearance Clear (CLEAR) 11/25/22 07:05 Urine pH 6 (5-7) 11/25/22 07:05 Ur Specific [place] 1.020 (1.005-1.030) 11/25/22 07:05 Urine Protein Neg (Negative) 11/25/22 07:05 Urine Glucose (UA) 4+ (Normal) H 11/25/22 07:05 Urine Ketones Negative (Negative) 11/25/22 07:05 Urine Blood Neg (Negative) 11/25/22 07:05 Urine Nitrate Negative (Negative) 11/25/22 07:05 Urine Bilirubin Neg (Negative) 11/25/22 07:05 Urine Urobilinogen Norm mg/dL (Negative) 11/25/22 07:05 Ur Leukocyte Esterase Negative (Negative) 11/25/22 07:05 Hepatitis A IgM Ab Non-reactive (Nonreactive) 11/25/22 06:35 Hep Bs Antigen Non-reactive (Nonreactive) 11/25/22 06:35 Hep B Core IgM Ab Non-reactive (Nonreactive) 11/25/22 06:35 Hepatitis C Antibody Non-reactive (Nonreactive) 11/25/22 06:35 Discharge Plan Discharge Patient Disposition: Home Clinical Impression: Abdominal pain, Transaminitis, Steatosis, liver Condition: Stable Prescriptions: New dicyclomine 10 mg capsule 10 mg PO TID PRN (Reason: abdominal pain) Qty: 20 0RF No Action desvenlafaxine succinate [Pristiq] 25 mg tablet extended release 24 hr 25 mg PO DAILY nystatin-triamcinolone 100,000-0.1 unit/gram-% ointment 1 applic topical BID PRN (Reason: vulvitis ) Qty: 30 0RF Rx Instructions: APPLY A THIN FILM TO THE AFFECTED AREA ONLY FOR 7-10 DAYS metoprolol succinate 50 mg tablet extended release 24 hr 50 mg PO DAILY irbesartan 300 mg tablet 300 mg PO DAILY metformin 500 mg tablet 500 mg PO DAILY Jardiance 25 mg tablet 25 mg PO DAILY insulin glargine [Lantus Solostar U-100 Insulin] 100 unit/mL (3 mL) insulin pen 10 unit SUBCUT DAILY Trulicity 1.5 mg/0.5 mL pen injector 1.5 mg SUBCUT .Weekly fluconazole [Diflucan] 150 mg tablet 150 mg PO Q5D Qty: 2 0RF terbinafine HCl 250 mg tablet 250 mg PO DAILY 14 Days Qty: 14 0RF Rx Instructions: Take one tablet daily for 14 days hydrocodone-acetaminophen 10-325 mg tablet 1 tab PO TID PRN (Reason: Pain) tramadol 50 mg tablet See Rx Instructions .ROUTE .COMPLEX Rx Instructions: 50 mg orally TAKE 1-2 TABS TID PRN FOR FIBROMYLAGIA PAIN. albuterol sulfate [ProAir HFA] 90 mcg/actuation HFA aerosol inhaler 1 - 2 puff INHALATION Q4H PRN (Reason: Shortness Of Breath) Premarin 0.3 mg tablet 0.3 mg PO DAILY aripiprazole 2 mg tablet 10 mg PO DAILY@0600 Discharge Orders: Discharge ED (Routine); Ordered 11/25/22 Ordered By: Preston Devine Referrals: Sage Mckeon MD [Primary Care Provider] - Discharge Diet: Advance as tolerated and Clear Liquid Discharge Activity: Increase activity as tolerated Patient Instructions: Abdominal Pain (ED), Opioid Safety Activity Restrictions/Additional Instructions: Thank you for visiting the emergency department. You were seen and evaluated for abdominal pain. The exact cause of your symptoms is unclear however does not appear to need inpatient management at this time. As discussed you do have mild elevation in your liver enzymes and hepatic steatosis, please follow-up with your primary care provider regarding this. If abdominal symptoms persist you may be referred for further evaluation by endoscopy. Return to the emergency department for uncontrolled symptoms or anything else that you are concerned about and feel needs emergency department evaluation. Coding Level of Care Code ED [employer] for Mindi Chavez
[2022-11-25 06:29] VITALS: BP 128/76; PULSE 72; RESP 16; O2SAT 95
[2022-11-25 06:44] LABS: Basophils # 0.1 10^3/uL (0.0-0.1); Basophils % 0.7 %; Eosinophils # 0.3 10^3/uL (0.0-0.8); Eosinophils % 3.2 %; Hematocrit 46.6 % (37.0-47.0); Hemoglobin 14.5 g/dL (11.5-15.3); Lymphocytes # 4.8 10^3/uL (0.8-4.8); Lymphocytes % 44.7 %; Mean Corpuscular HGB Conc 31.1 g/dL (30.0-36.0); Mean Corpuscular Hemoglobin 28.7 pg (28.0-34.0); Mean Corpuscular Volume 92.3 fl (81-99); Monocytes # 0.6 10^3/uL (0.2-0.9); Monocytes % 5.3 %; Neutrophils # 4.91 10^3/uL (1.8-7.7); Neutrophils % 45.9 %; Nucleated Red Blood Cells % 0 %; Platelet Count 278 10^3/cmm (130-400); Red Blood Count 5.05 10^6/uL (4.1-5.3); Red Cell Distribution Width 13.1 % (12.1-15.1); White Blood Count 10.7 10^3/uL (4.0-10.0)
[2022-11-25] MEDS: sodium chloride 0.9% 1,000 ML 999 ML IV (06:52)
[2022-11-25] MEDS: morphine 4 mg/mL SDV 1 mL IVP ×2 (06:54→08:23)
[2022-11-25 07:06] LABS: Alanine Aminotransferase 57 U/L (0-33); Albumin Level 4.3 g/dL (3.5-5.2); Alkaline Phosphatase 105 U/L (35-105); Blood Urea Nitrogen 12 mg/dL (6-20); Carbon Dioxide 26 mmol/L (22-29); Chloride 97 mmol/L (98-107); Globulin 3.9 g/dL (1.3-4.6); Glomerular Filtration Rate 92.2 mL/min (90-130); Glucose 105 mg/dL (65-115); Lipase 50 U/L (13-60); Osmolality Calculated 284 mOsm/kg (285-295); Sodium 137 mmol/L (136-145); Total Bilirubin 0.3 mg/dL (0.15-1.2); Total Protein 8.2 g/dL (6.6-8.7)
[2022-11-25 07:07] LABS: Anion Gap 18.4 (5-19); Aspartate Amino Transferase 43 U/L (0-32); Potassium 4.4 mmol/L (3.5-5.1)
[2022-11-25 07:18] LABS: Add Urine Microscopic? NO; Charge for UA Resulting for Rev
[2022-11-25 07:22] LABS: Bilirubin Urine Neg (Negative); Blood Urine Neg (Negative); Glucose Urine UA 4+ (Normal); Ketones Urine Negative (Negative); Leukocyte Esterase Urine Negative (Negative); Nitrate Urine Negative (Negative); Protein Urine Neg (Negative); Urine Appearance Clear (CLEAR); Urine Color Yellow (Yellow); Urobilinogen Urine Norm (Negative); pH Urine 6 (5-7)
--- NOTE | 2022-11-25 07:23 | CTR_ITS ---
PROCEDURE INFORMATION: Exam: CT Abdomen And Pelvis With Contrast Exam date and time: 11/25/2022 7:53 AM Age: 42 years old Clinical indication: Abdominal pain; Localized; Right lower quadrant (rlq); Prior surgery; Surgery type: Appy, hstyo; Additional info: Rlq pain, diarrhea, 2 weeks, HX hysterectomy, HX appendectomy TECHNIQUE: Imaging protocol: Computed tomography of the abdomen and pelvis with contrast. Radiation optimization: All CT scans at this facility use at least one of these dose optimization techniques: automated exposure control; mA and/or kV adjustment per patient size (includes targeted exams where dose is matched to clinical indication); or iterative reconstruction. Contrast material: OMNI 350; Contrast volume: 100 ml; Contrast route: INTRAVENOUS (IV); REPORTING DATA: Count of CT and Cardiac NM exams in prior 12 months: This patient has received 0 known CTs and 0 known cardiac nuclear medicine studies in the 12 months prior to the current study. COMPARISON: CT abdomen pelvis w con* [id number] 07/29/2020 9:58 PM RADIATION DOSE METRICS: Total DLP (mGy-cm): 1117.31 FINDINGS: Liver: Hepatic steatosis. Gallbladder and bile ducts: Normal. No calcified stones. No ductal dilation. Pancreas: Normal. No ductal dilation. Spleen: Normal. No splenomegaly. Adrenal glands: Normal. No mass. Kidneys and ureters: Normal. No hydronephrosis. Stomach and bowel: Unremarkable. No obstruction. No mucosal thickening. Appendix: No evidence of appendicitis. Intraperitoneal space: Unremarkable. No free air. No significant fluid collection. Vasculature: Unremarkable. No abdominal aortic aneurysm. Lymph nodes: Unremarkable. No enlarged lymph nodes. Urinary bladder: Unremarkable as visualized. Reproductive: Hysterectomy. Bones/joints: Unremarkable. No acute fracture. Soft tissues: Unremarkable. CT/CT abdomen pelvis w con* [id number] IMPRESSION: No acute findings.
[2022-11-25] MEDS: iohexol 350 mg/mL 500 mL Btl (per mL) IV (07:59)
[2022-11-25] MEDS: acetaminophen 500 mg Tablet 1000 MG PO (08:23)
[2022-11-25] MEDS: dicyclomine 10 mg Capsule PO (08:23)
[2022-11-25 09:17] LABS: Hepatitis A Antibody IgM Non-Reactive (Nonreactive); Hepatitis B Core IgM Non-Reactive (Nonreactive); Hepatitis B Surface Antigen Non-Reactive (Nonreactive); Hepatitis C Virus Antibody Non-Reactive (Nonreactive)
== END 2022-11-25 09:18 | disposition home or self-care (01) ==
PROVIDERS: Emergency Provider Emergency Medicine; PCP Family Medicine
DX: R10.31 Right lower quadrant pain (principal); K76.0 Fatty (change of) liver, not elsewhere classified
CPT/HCPCS: 36415; 74177; 80053; 80074; 81003; 83690; 85025; 96361; 96374; 96376; 99285; J2270; J7030; Q9967

== ENCOUNTER 2023-01-16 06:33 | Outpatient (CLI) | payer MEDICAID, SELFPAY ==
--- NOTE | 2023-01-16 06:46 | CT_ITS ---
WS: [id number] CT SINUSES TECHNIQUE: Noncontrast CT of the paranasal sinuses with coronal and sagittal reformatted images. CLINICAL INFORMATION: ACUTE SINUSITIS COMPARISON: MRI [address] April 07, 2021 DLP: 330.[address] scans at [facility] use at least one of these dose optimization techniques: automated e xposure control; mA and/or kV adjustment per patient size (includes targeted exams where dose is matc hed to clinical indication); or iterative reconstruction. FINDINGS: Mild LEFT to RIGHT nasal septal deviation with a small leftward directed spur. LEFT alexandro bullosa. M ild narrowing of the ostiomeatal units bilaterally. Mild mucosal thickening in the ethmoid air cells. Mastoid air cells well aerated. Normal posterior nasopharynx. Interval postoperative changes resecti on of the RIGHT frontal ethmoidal mucocele with postoperative changes along the RIGHT frontal sinus. No evidence of acute sinusitis or air-fluid levels. RIGHT orbit including the lamina papyracea appear s intact. Trace mucosal thickening ethmoid air cells. Sphenoid sinuses and maxillary sinuses are well aerated. Mastoid air cells well aerated. Normal posterior nasopharynx and parapharyngeal fat. Middle ears are well aerated bilaterally. CT/CT sinus wo con* [id number] IMPRESSION: 1. Interval postoperative changes resection of the RIGHT frontoethmoidal mucoc blayne with postoperative changes involving the RIGHT frontal sinus. 2. No evidence of acute sinusitis 3. Paranasal sinuses are well aerated. No air-fluid levels. 4. Ostiomeatal units are patent with mild narrowing. LEFT alexandro bullosa. 5. Mastoid air cells well aerated. 6. RIGHT lamina papyracea and orbit appears intact.
== END 2023-01-16 06:34 | disposition home or self-care (01) ==
LOC: RAD 06:34
PROVIDERS: PCP Family Medicine; Visit Provider Specialist
DX: J01.90 Acute sinusitis, unspecified (principal); Z98.890 Other specified postprocedural states
CPT/HCPCS: 70486

== ENCOUNTER → 2023-02-07 10:24 | Outpatient (BNVA) | payer MEDICAID, SELFPAY | PROVIDERS: PCP Family Medicine; Visit Provider Podiatrist Foot & Ankle Surgery | DX: B35.3 Tinea pedis (principal); E11.9 Type 2 diabetes mellitus without complications; M21.41 Flat foot [pes planus] (acquired), right foot; M21.42 Flat foot [pes planus] (acquired), left foot; Z79.4 Long term (current) use of insulin; Z79.84 Long term (current) use of oral hypoglycemic drugs | CPT/HCPCS: 99213 ==

== ENCOUNTER → 2023-02-28 10:07 | Outpatient (BNVA) | payer MEDICAID, SELFPAY | PROVIDERS: PCP Family Medicine; Visit Provider Podiatrist Foot & Ankle Surgery | DX: B35.3 Tinea pedis (principal); G57.61 Lesion of plantar nerve, right lower limb | CPT/HCPCS: 73630; 99214 ==

== ENCOUNTER 2023-04-05 11:38 | Outpatient (CLI) | payer MEDICAID, SELFPAY ==
--- NOTE | 2023-04-05 11:52 | MM_ITS ---
WS: [id number] Bilateral diagnostic 3D tomosynthesis digital mammogram, 04/05/2023 Clinical Data: PINKY MASTODYNIA Comparison: 07/20/2022 Findings: No spiculated masses or clustered calcifications are seen. There are mole markers on the left breast. There are no secondary signs of carcinoma. The breast parenchymal pattern shows fat replacement. The re are lymph nodes in both axilla. MM/[place] [id number] Impression: 1. Negative bilateral mammograms unchanged. 2. Recommend annual screening mammograms. BIRADS: 1-Negative FOLLOW UP: 1 Year Follow-up The CAD decoration checker was used.
--- NOTE | 2023-04-05 11:52 | US_ITS ---
WS: [id number] Left breast ultrasound, 04/05/2023 Clinical Data: LT LUMP/PAIN Comparison: Left breast ultrasound, 07/20/2022 Findings: The breast tissue shows no abnormalities. There are no cysts or masses. Only normal breast tissue is noted. US/US breast LT limited* [id number] Impression: 1. Negative left breast ultrasound. 2. Recommend annual screening mammograms. BIRADS: 1-Negative FOLLOW UP: 1 Year Follow-up
== END 2023-04-05 11:39 | disposition home or self-care (01) ==
LOC: RAD 11:41
PROVIDERS: PCP Family Medicine; Visit Provider Family Medicine
DX: N64.4 Mastodynia (principal)
CPT/HCPCS: 76642; 77062; G0279

== ENCOUNTER → 2023-04-11 11:05 | Outpatient (BNVA) | payer MEDICAID, SELFPAY | PROVIDERS: PCP Family Medicine; Visit Provider Podiatrist Foot & Ankle Surgery | DX: G57.61 Lesion of plantar nerve, right lower limb (principal) | CPT/HCPCS: 99213 ==

== ENCOUNTER 2023-04-16 13:17 | Outpatient (CLI) | payer MEDICAID, SELFPAY ==
--- NOTE | 2023-04-16 13:30 | US_ITS ---
WS: [id number] ULTRASOUND SOFT TISSUES RIGHT foot HISTORY: evaluate for Bazzi's neuroma right foot COMPARISON: None available. TECHNIQUE: 2-D and color Doppler imaging is submitted. Limited evaluation for Bazzi neuroma. The intertarsal spaces are poorly visualized. There is a hypoe choic nodule which is along the more plantar surface of the foot between the third and fourth metatar sals. This is not intertarsal in position. This nodule is hypoechoic measuring 6 x 4 x 3 mm. Extreme pain for the patient at this location. US/US soft tissue/extremity [id number] IMPRESSION: Hypoechoic nodule measuring 6 x 4 x 3 mm along the plantar surface between the third and fourth metatarsal heads. Not typical position for Bazzi neuroma. Pat ient was extremely painful in this location. Atypical neuroma not excluded.
== END 2023-04-16 13:18 | disposition home or self-care (01) ==
PROVIDERS: PCP Family Medicine; Visit Provider Podiatrist Foot & Ankle Surgery
DX: G57.61 Lesion of plantar nerve, right lower limb (principal)
CPT/HCPCS: 76882

== ENCOUNTER → 2023-04-25 06:59 | Outpatient (BNVA) | payer MEDICAID, SELFPAY | PROVIDERS: PCP Family Medicine; Visit Provider Podiatrist Foot & Ankle Surgery | DX: G57.61 Lesion of plantar nerve, right lower limb (principal) | CPT/HCPCS: 64455; J1100; J3301 ==

== ENCOUNTER 2023-06-08 13:36 | Emergency (ER) | payer MEDICAID, SELFPAY ==
[2023-06-08 13:42] VITALS: BP 145/74; PULSE 75; RESP 17; TEMP 36.6; O2SAT 97; BMI 42.8
--- NOTE | 2023-06-08 13:54 | CT_ITS ---
WS: [id number] CT ABDOMEN AND PELVIS WITH CONTRAST HISTORY: abd pain TECHNIQUE: Imaging performed of the abdomen and pelvis with IV contrast. Single phase imaging of the abdomen. Coronal and sagittal reformats are submitted. All CT scans at [facility] use at [facility] [facility] one of these dose optimization techniques: automated exposure control; mA and/or kV adjustment per patient size (includes targeted exams where dose is matched to clinical indication); or iterative re construction. IV CONTRAST: Omnipaque 350; 100 mL IV. Oral contrast: No DLP: 1135.89 mGy.cm COMPARISON: 11/25/2022 Lower thorax: New very small bilateral pleural effusions. Lung bases are otherwise negative. Heart is normal size. No hiatal hernia. Liver/biliary system: Normal size with no intrahepatic dilatation. Gallbladder: Normal. No gallstones or wall thickening. No pericholecystic fluid. Pancreas: Normal size pancreas and pancreatic duct. No adjacent inflammation. Spleen: Normal size spleen. No mass or infarct. Adrenal glands: Normal. Right kidney: Normal. Left kidney: Normal. Aorta: Normal. Lymphadenopathy: None. Free fluid: None. GI tract: Normal stomach. No small bowel obstruction. Prior appendectomy. No pericolonic stranding or edema. Abdominal wall: Fat containing umbilical hernia. Pelvis: Prior hysterectomy. Bones: Unremarkable. IMPRESSION: 1. Prior appendectomy. 2. No GI tract obstruction and no pericolonic inflammation. 3. No ascites or adenopathy. 4. Very small, new bilateral pleural effusions.
--- NOTE | 2023-06-08 13:55 | W.ED.ABDPA2 ---
HPI - Abdominal Pain General: Chief Complaint: Abdominal Pain Stated Complaint: abd pain sent by PCP Time Seen by Provider: 06/08/23 13:52 Source: patient Mode of arrival: ambulatory Limitations: no limitations History of Present Illness: 42-year-old female states she woke up this morning at 130 with right lower quadrant abdominal pain she states that proved briefly and then is gotten increasingly painful states her pain is currently a 6 out of 10 its a burning type pain she denies any dysuria denies any nausea or vomiting she has had a hysterectomy along with appendectomy. Associated Symptoms: Denies chills, dysuria and fever(s) Review of Systems Const: Denies: fever(s), chills, body aches or change in appetite Eyes: Denies: blurry vision or eye discomfort ENMT: Denies: throat pain or dental pain Card: Denies: chest pain Resp: Denies: dyspnea GI: Reports: abdominal pain : Denies: dysuria Musc: Denies: neck pain or back pain Skin/Breast: Denies: rash Neuro: Denies: headache(s) PFSH ED PFSH: Medical History CSF leak from nose Fibromyalgia Hypertension Meningitis due to bacteria Mucocele of frontal sinus No pertinent past medical history neghx: dm,thyroid,dvt/pe PCP: Dr. Mckeon PCR DNA positive for HSV2 (~05/2022) Surgical History History of appendectomy History of colonoscopy with polypectomy History of endoscopic sinus surgery History of oral surgery History of surgery of head (~03/10/22) leaking spinal fluid through nose, correct hemorrhage History of tonsillectomy Hx of dilation and curettage (~01/17/05) 01/17/2005--Diagnoses: Delayed bleeding (6 weeks). Performed by [address] Reji Alan at [facility] in [place], [place]. Hx of hysterectomy (~07/31/06) Laparoscopic assisted vaginal hysterectomy with right salpingo-oophorectomy and destruction of left ovarian cyst. Diagnosis: Chronic pelvic pain. Performed by Dr. Reji Alan at [facility] in [place], [place] Hx of laparoscopy 1----04/25/2006--Right ovarian cystectomy. Diagnosis: Pelvic pain, ruptured ovarian cyst. Performed by Dr. Shemar Lomax at [facility] in [place], [place] 2-----11/22/2007, Lysis of adhesions with left salpingectomy. Diagnosis: Chronic pelvic pain. Performed by Dr. Reji Alan at [facility] in [place], [place]. 3------ 11/10/2008 Left salpingo-oophorectomy with lysis of adhesions. Diagnosis: Chronic pelvic pain. Performed by Dr. Reji Alan at [facility] in [place], [place]. 4------ Diagnostic. No significant findings found. Diagnosis: Chronic pelvic pain. Performed by Dr. Reji Alan at [facility] in [place], [place]. Hx of removal of cyst Removed from L breast Hx of tubal ligation 10/27/2004, tubal ligation. Performed by Dr. Reji Alan at [facility] in [place], [place]. S/P matrixectomy of toe Family History Family/Other Breast cancer Paternal Aunt--dx age unknown Grandmother Breast cancer Maternal--dx age unknown Denies family history of Colon cancer Ovarian cancer Diabetes Heart disease Hypercholesteremia Hypertension Uterine cancer Thyroid disease Stroke Social History Substance/Drug Use: never Physical Exam Const: COMMON NORMALS: no acute distress, patient oriented x3 and healthy appearing HENMT: COMMON NORMALS: normocephalic and atraumatic HEAD & SCALP: normocephalic and atraumatic Eye: COMMON NORMALS: conjunctivae normal CONJUNCTIVA: Yes conjunctivae normal Neck/C-Spine: COMMON NORMALS: full ROM and supple Chest: COMMONS NORMALS: normal inspection of the chest Resp: COMMON NORMALS: normal respiratory effort Cardio: COMMON NORMALS: regular rate, regular rhythm and No murmurs present (Cardio) RATE: regular rate RHYTHM: regular rhythm GI: COMMON NORMALS: Normal to inspection, nondistended, normoactive bowel sounds present, Soft to palpation and no masses PALPATION: Yes Soft to palpation and Yes Tenderness to palpation present (GI) Details: RLQ Extremity: COMMON NORMALS: normal to inspection and full ROM Neuro: COMMON NORMALS: patient oriented x3, moves all extremities and no focal motor deficits Psych: COMMON NORMALS: mental status grossly normal, Normal thought process present and cooperative THOUGHT PROCESS: Normal thought process present Skin: COMMON NORMALS: no rashes or lesions noted and no wounds GENERAL SKIN EXAM: no rashes or lesions noted Course Vital Signs: Vital signs: Vital Signs Temperature 97.9 F 06/08/23 13:42 Pulse Rate 73 06/08/23 14:01 Respiratory Rate 18 06/08/23 14:09 Blood Pressure 135/85 06/08/23 14:01 Pulse Oximetry 100 06/08/23 14:09 Oxygen Delivery Me thod Room Air 06/08/23 14:01 MDM - Abdominal Pain Medical Decision Making Patient presents here with abdominal pain her CT here is normal she has no signs of inflammation about her pancreas on CT no signs of cholecystitis or gallstones. Blood work here is normal except for a elevated lipase her pain here is improved she has no epigastric tenderness at discharge she has no signs of stone in her common bile duct her bilirubin level here is normal we will have her take pain meds at home she is to follow-up with her PCP informed her she needs to have her lipase level rechecked. I did inform her if she has any worsening pain vomiting or fever she is return immediately she understands agrees to plan. She is to do an all liquid diet as well. l Medical Records I reviewed the patient's medical records. Lab Data I reviewed the patient's lab results. 06/08/23 13:57 06/08/23 14:46 Labs/Radiology: Laboratory Results WBC 10.58 10^3/uL (3.29-11.43) 06/08/23 13:57 RBC 4.99 10^6/uL (3.85-5.65) 06/08/23 13:57 Hgb 14.10 g/dL (11.27-16.99) 06/08/23 13:57 Hct 46.1 % (36-47) 06/08/23 13:57 MCV 92.4 fl (85-98) 06/08/23 13:57 MCH 28.3 pg (27-33) 06/08/23 13:57 MCHC 30.6 g/dL (30-55) 06/08/23 13:57 RDW 14.6 % (12.1-15.1) 06/08/23 13:57 Plt Count 221 10^3/cmm (157-399) 06/08/23 13:57 MPV 11.4 fL (7.4-10.4) H 06/08/23 13:57 Neut % (Auto) 51.0 % 06/08/23 13:57 Lymph % (Auto) 39.6 % 06/08/23 13:57 Evangeline % (Auto) 5.9 % 06/08/23 13:57 Eos % (Auto) 2.4 % 06/08/23 13:57 Baso % (Auto) 0.8 % 06/08/23 13:57 Neut # (Auto) 5.41 10^3/uL (1.8-7.7) 06/08/23 13:57 Lymph # (Auto) 4.2 10^3/uL (0.8-4.8) 06/08/23 13:57 Evangeline # (Auto) 0.6 10^3/uL (0.2-0.9) 06/08/23 13:57 Eos # (Auto) 0.3 10^3/uL (0.0-0.8) 06/08/23 13:57 Baso # (Auto) 0.1 10^3/uL (0.0-0.1) 06/08/23 13:57 Nucleated RBC % (auto) 0 % 06/08/23 13:57 Nucleated RBCs # 0.0 /100WBC 06/08/23 13:57 Sodium 137 mmol/L (136-145) 06/08/23 14:46 Potassium 3.7 mmol/L (3.5-5.1) 06/08/23 14:46 Chloride 100 mmol/L (98-107) 06/08/23 14:46 Carbon Dioxide 28 mmol/L (22-29) 06/08/23 14:46 Anion Gap 12.7 (5-19) 06/08/23 14:46 BUN 12 mg/dL (6-20) 06/08/23 14:46 Creatinine 0.5 mg/dL (0.5-0.9) 06/08/23 14:46 GFR Calculation 136.0 mL/min (90-130) H 06/08/23 14:46 Glucose 93 mg/dL (65-115) 06/08/23 14:46 Calculated Osmolality 283 mOsm/kg (285-295) L 06/08/23 14:46 Calcium 9.1 mg/dL (8.5-10.5) 06/08/23 14:46 Total Bilirubin 0.4 mg/dL (0.15-1.2) 06/08/23 14:46 AST 25 U/L (0-32) 06/08/23 14:46 ALT 37 U/L (0-33) H 06/08/23 14:46 Alkaline Phosphatase 86 U/L (35-105) 06/08/23 14:46 Total Protein 7.0 g/dL (6.6-8.7) 06/08/23 14:46 Albumin 4.0 g/dL (3.5-5.2) 06/08/23 14:46 Globulin 3.0 g/dL (1.3-4.6) 06/08/23 14:46 Lipase 656 U/L (13-60) H 06/08/23 14:46 Urine Color Yellow (Yellow) 06/08/23 14:06 Urine Appearance Clear (CLEAR) 06/08/23 14:06 Urine pH 6.5 (5-7) 06/08/23 14:06 Ur Specific [place] 1.010 (1.005-1.030) 06/08/23 14:06 Urine Protein Neg (Negative) 06/08/23 14:06 Urine Glucose (UA) Norm (Normal) 06/08/23 14:06 Urine Ketones Negative (Negative) 06/08/23 14:06 Urine Blood Neg (Negative) 06/08/23 14:06 Urine Nitrate Negative (Negative) 06/08/23 14:06 Urine Bilirubin Neg (Negative) 06/08/23 14:06 Urine Urobilinogen Norm mg/dL (Negative) 06/08/23 14:06 Ur Leukocyte Esterase Negative (Negative) 06/08/23 14:06 All radiology interpretation(s) finalized by discharge Discharge Plan Discharge Patient Disposition: Home Clinical Impression: Abdominal pain, Pancreatitis Condition: Stable Prescriptions: New dicyclomine 20 mg tablet 20 mg PO BID PRN (Reason: abdominal pain) Qty: 14 0RF hydrocodone-acetaminophen 5-325 mg tablet 1 tab PO Q6H PRN (Reason: pain) Qty: 14 0RF No Action desvenlafaxine succinate [Pristiq] 25 mg tablet extended release 24 hr 25 mg PO DAILY nystatin-triamcinolone 100,000-0.1 unit/gram-% ointment 1 applic topical BID PRN (Reason: vulvitis ) Qty: 30 0RF Rx Instructions: APPLY A THIN FILM TO THE AFFECTED AREA ONLY FOR 7-10 DAYS metoprolol succinate 50 mg tablet extended release 24 hr 50 mg PO DAILY irbesartan 300 mg tablet 300 mg PO DAILY Jardiance 25 mg tablet 25 mg PO DAILY (DME) Diabetic Shoes with 3 pairs of inserts See Rx Instructions .Route .MEDSUPPLY Qty: 1 0RF Rx Instructions: As directed by ANNALISE&O triamcinolone acetonide 0.1 % cream 1 applic topical TID Qty: 80 2RF hydrocodone-acetaminophen 10-325 mg tablet 1 tab PO TID PRN (Reason: Pain) tramadol 50 mg tablet 50 - 100 mg PO TID PRN (Reason: FIBROMYALGIA) albuterol sulfate [ProAir HFA] 90 mcg/actuation HFA aerosol inhaler 1 - 2 puff INHALATION Q4H PRN (Reason: Shortness Of Breath) metformin 500 mg tablet extended release 24 hr 500 mg PO DAILY Premarin 1.25 mg tablet 2.5 mg PO DAILY aripiprazole 10 mg tablet 10 mg PO DAILY Trulicity 4.5 mg/0.5 mL pen injector 4.5 mg SUBCUT Q7D Rx Instructions: ON SUNDAY Discharge Orders: Discharge ED (Routine); Ordered 06/08/23 Ordered By: Satish Mitchell Referrals: Sage Mckeon MD [Primary Care Provider] - 1-3 days Discharge Diet: Advance as tolerated Discharge Activity: Resume usual activity Patient Instructions: Pancreatitis (ED), Abdominal Pain (ED) Coding Level of Care Code ED Marketing Regional Consultant for Mindi Chavez
[2023-06-08 14:01] VITALS: BP 135/85; PULSE 73; RESP 18; O2SAT 96
[2023-06-08 14:02] LABS: Basophils # 0.1 10^3/uL (0.0-0.1); Basophils % 0.8 %; Eosinophils # 0.3 10^3/uL (0.0-0.8); Eosinophils % 2.4 %; Hematocrit 46.1 % (36-47); Lymphocytes # 4.2 10^3/uL (0.8-4.8); Lymphocytes % 39.6 %; Mean Corpuscular HGB Conc 30.6 g/dL (30-55); Mean Corpuscular Hemoglobin 28.3 pg (27-33); Mean Corpuscular Volume 92.4 fl (85-98); Mean Platelet Volume 11.4 fL (7.4-10.4); Monocytes # 0.6 10^3/uL (0.2-0.9); Monocytes % 5.9 %; Neutrophils # 5.41 10^3/uL (1.8-7.7); Nucleated Red Blood Cells % 0 %; Platelet Count 221 10^3/cmm (157-399); Red Blood Count 4.99 10^6/uL (3.85-5.65); Red Cell Distribution Width 14.6 % (12.1-15.1); White Blood Count 10.58 10^3/uL (3.29-11.43)
[2023-06-08 14:09] VITALS: RESP 18; O2SAT 100
[2023-06-08] MEDS: morphine 4 mg/mL SDV 1 mL IVP (14:09)
[2023-06-08 14:17] LABS: Add Urine Microscopic? NO; Charge for UA Resulting for Rev
[2023-06-08 14:20] LABS: Bilirubin Urine Neg (Negative); Blood Urine Neg (Negative); Glucose Urine UA Norm (Normal); Ketones Urine Negative (Negative); Leukocyte Esterase Urine Negative (Negative); Nitrate Urine Negative (Negative); Protein Urine Neg (Negative); Urine Appearance Clear (CLEAR); Urine Color Yellow (Yellow); Urobilinogen Urine Norm (Negative); pH Urine 6.5 (5-7)
[2023-06-08] MEDS: iohexol 350 mg/mL 500 mL Btl (per mL) IV (14:22)
[2023-06-08 15:34] LABS: Alanine Aminotransferase 37 U/L (0-33); Alkaline Phosphatase 86 U/L (35-105); Aspartate Amino Transferase 25 U/L (0-32); Blood Urea Nitrogen 12 mg/dL (6-20); Calcium 9.1 mg/dL (8.5-10.5); Carbon Dioxide 28 mmol/L (22-29); Chloride 100 mmol/L (98-107); Glucose 93 mg/dL (65-115); Osmolality Calculated 283 mOsm/kg (285-295); Sodium 137 mmol/L (136-145); Total Bilirubin 0.4 mg/dL (0.15-1.2)
[2023-06-08 15:35] LABS: Anion Gap 12.7 (5-19); Potassium 3.7 mmol/L (3.5-5.1)
[2023-06-08 15:43] LABS: Lipase 656 U/L (13-60)
== END 2023-06-08 15:53 | disposition home or self-care (01) ==
PROVIDERS: Emergency Provider Emergency Medicine; PCP Family Medicine
DX: K85.90 Acute pancreatitis without necrosis or infection, unspecified (principal); Z79.85 Long-term (current) use of injectable non-insulin antidiabetic drugs; Z79.84 Long term (current) use of oral hypoglycemic drugs; I10 Essential (primary) hypertension
CPT/HCPCS: 36415; 74177; 80053; 81003; 83690; 85025; 96374; 99285; J2270; Q9967

== ENCOUNTER 2023-06-18 20:00 | Outpatient (CLI) | payer MEDICAID, SELFPAY | END 2023-06-18 20:01 | disposition home or self-care (01) | LOC: SLEEP 06-19 03:45 | PROVIDERS: PCP Family Medicine; Visit Provider Family Medicine | DX: G47.33 Obstructive sleep apnea (adult) (pediatric) (principal) | CPT/HCPCS: 95811 ==

== ENCOUNTER 2023-07-25 09:32 | Outpatient (CLI) | payer MEDICAID, SELFPAY ==
--- NOTE | 2023-07-25 09:59 | CT_ITS ---
WS: [id number] CT ABDOMEN AND PELVIS NONCONTRAST HISTORY: RIGHT FLANK PAIN, GROSS HEMATURIA TECHNIQUE: Imaging performed through the abdomen and pelvis. Coronal and sagittal reformats are submi tted. All CT scans at [facility] use at least one of these dose optimization techniques: auto mated exposure control; mA and/or kV adjustment per patient size (includes targeted exams where dose is matched to clinical indication); or iterative reconstruction. DLP: 997.04 mGy.cm COMPARISON: 06/08/2023 Lower thorax: Lung bases are clear. Visualized heart is normal. No hiatal hernia. Liver: Marked enlargement of the liver, at least 22 cm in length. Liver extends to the iliac crest an d has increased in size since the prior study. There is also marked hepatic steatosis which is also i ncreased since the prior study. No bile duct dilatation. Gallbladder: Mildly contracted. Pancreas: Normal size and attenuation. Normal pancreatic duct. No pancreatitis or mass. Spleen: Normal. Adrenal glands: Normal. No mass. Right kidney: RIGHT kidney is anteriorly rotated. No obstruction. No renal or ureteral calcification. Left kidney: Normal size kidney with no mass or hydronephrosis. Aorta: Normal abdominal aorta, no aneurysm or atherosclerosis. No free fluid, intraperitoneal air or significant lymphadenopathy. There are a few retroperitoneal ly mph nodes and mesenteric lymph nodes which were present on the recent prior exams without increase in size. GI tract: Stomach is nondistended. No small bowel obstruction. Prior appendectomy. No colon obstructi on. No colitis. Abdominal wall: Negative. No hernia. Pelvis: Prior hysterectomy. No pelvic mass. Visualized urinary bladder is negative. No ascites or fabian nopathy. Osseous structures: Unremarkable. IMPRESSION: 1. No acute abdominal or pelvic abnormalities. 2. No renal or ureteral obstruction or calcification. 3. Marked enlargement of the liver and hepatic steatosis. Progression of hepatic steatosis since 05/25. Liver also appears slightly larger in size as compared to prior studies. 4. Prior hysterectomy and appendectomy.
== END 2023-07-25 09:33 | disposition home or self-care (01) ==
PROVIDERS: PCP Family Medicine; Visit Provider Family Medicine
DX: R10.9 Unspecified abdominal pain (principal); R31.9 Hematuria, unspecified; K76.0 Fatty (change of) liver, not elsewhere classified; R16.0 Hepatomegaly, not elsewhere classified; Z90.710 Acquired absence of both cervix and uterus; Z90.89 Acquired absence of other organs
CPT/HCPCS: 74176

== ENCOUNTER 2023-08-27 08:24 | Outpatient (CLI) | payer MEDICAID, SELFPAY ==
--- NOTE | 2023-08-27 08:32 | US_ITS ---
WS: [id number] RIGHT UPPER QUADRANT ULTRASOUND HISTORY: HEPATOMEGALY COMPARISON: None available. Liver: 22.3 cm in length. Enlarged liver with no mass. Coarse echotexture throughout the liver from h epatic steatosis. Portal Vein: Normal hepatopetal flow with monophasic waveform. Gallbladder: Normally distended gallbladder with no stones or wall thickening. CBD: 0.5 cm Pancreas: Poorly visualized. Right kidney: 12.8 cm in length. Normal size and echogenicity. No hydronephrosis or mass. Aorta and IVC: Unremarkable abdominal aorta and IVC. No ascites. IMPRESSION: 1. Normal gallbladder. 2. Markedly enlarged liver with mild hepatic steatosis.
== END 2023-08-27 08:25 | disposition home or self-care (01) ==
LOC: RAD 08:24
PROVIDERS: PCP Family Medicine; Visit Provider Family Medicine
DX: R16.0 Hepatomegaly, not elsewhere classified (principal); K76.0 Fatty (change of) liver, not elsewhere classified
CPT/HCPCS: 76705

== ENCOUNTER → 2023-10-25 06:41 | Outpatient (BNVA) | payer MEDICAID, SELFPAY | PROVIDERS: PCP Family Medicine; Visit Provider Podiatrist Foot & Ankle Surgery | DX: G57.61 Lesion of plantar nerve, right lower limb (principal) | CPT/HCPCS: 64455; J1100; J3301; J3490 ==

== ENCOUNTER 2024-01-14 09:02 | Outpatient (CLI) | payer MEDICAID, SELFPAY ==
--- NOTE | 2024-01-14 09:08 | CT_ITS ---
WS: [id number] CT ABDOMEN AND PELVIS NONCONTRAST HISTORY: KIDNEY STONE TECHNIQUE: Imaging performed through the abdomen and pelvis. Coronal and sagittal reformats are submi tted. All CT scans at [facility] use at least one of these dose optimization techniques: auto mated exposure control; mA and/or kV adjustment per patient size (includes targeted exams where dose is matched to clinical indication); or iterative reconstruction. DLP: 1090.62 mGy.cm COMPARISON: 07/25/2023 Lower thorax: Lung bases are clear. Visualized heart is normal. No hiatal hernia. Liver: Markedly enlarged heterogeneous liver. Liver extends 21 cm in length. Liver extends across the midline to the spleen. Variable areas of attenuation throughout the liver from hepatic steatosis and sparing. Gallbladder: Normal gallbladder. No pericholecystic fluid or cholelithiasis. No gallbladder wall thic kening. Pancreas: Normal size and attenuation. Normal pancreatic duct. No pancreatitis or mass. Spleen: Normal. Adrenal glands: Normal. No mass. Right kidney: Normal size kidney with no mass or hydronephrosis. Left kidney: Normal size kidney with no mass or hydronephrosis. Aorta: Normal abdominal aorta, no aneurysm or atherosclerosis. No free fluid, intraperitoneal air or significant lymphadenopathy. GI tract: Normal noncontrast imaging of the stomach, small bowel and colon. No obstruction or wall th ickening. Normal appendix. Abdominal wall: Ventral abdominal wall hernia at the level of the umbilicus contains fat only. Pelvis: Prior hysterectomy. Urinary bladder is negative. Numerous phleboliths. Osseous structures: Unremarkable. IMPRESSION: 1. No renal calcification or obstruction. 2. Prior hysterectomy. 3. Normal appendix. 4. Severe hepatomegaly and hepatic steatosis. Similar to the prior study of 07/25/2023. 5. No GI tract obstruction.
== END 2024-01-14 09:03 | disposition home or self-care (01) ==
LOC: RAD 09:02
PROVIDERS: PCP Family Medicine; Visit Provider Family Medicine
DX: N20.0 Calculus of kidney (principal); R16.0 Hepatomegaly, not elsewhere classified; K76.0 Fatty (change of) liver, not elsewhere classified
CPT/HCPCS: 74176

== ENCOUNTER → 2024-02-04 13:45 | Outpatient (BNVA) | payer MEDICAID, SELFPAY | PROVIDERS: PCP Family Medicine; Visit Provider Podiatrist Foot & Ankle Surgery | DX: G57.61 Lesion of plantar nerve, right lower limb (principal); E11.42 Type 2 diabetes mellitus with diabetic polyneuropathy; L60.3 Nail dystrophy; Z79.84 Long term (current) use of oral hypoglycemic drugs | CPT/HCPCS: 99213 ==

== ENCOUNTER → 2024-03-06 10:14 | Outpatient (BNVA) | payer MEDICAID, SELFPAY | PROVIDERS: PCP Family Medicine; Referring Provider Family Medicine; Visit Provider Surgery | DX: R10.9 Unspecified abdominal pain (principal); R10.13 Epigastric pain; K62.89 Other specified diseases of anus and rectum; K92.2 Gastrointestinal hemorrhage, unspecified | CPT/HCPCS: 99204 ==

== ENCOUNTER 2024-03-19 08:28 | Outpatient (CLI) | payer MEDICAID, SELFPAY ==
--- NOTE | 2024-03-19 08:33 | CT_ITS ---
WS: [id number] CT SINUSES TECHNIQUE: Noncontrast CT of the paranasal sinuses with coronal and sagittal reformatted images. CLINICAL INFORMATION: MUCOCELE OF FRONTAL SINUS COMPARISON: CT 01/16/2023 DLP: 359.[address] scans at [facility] use at least one of these dose optimization techniques: automated e xposure control; mA and/or kV adjustment per patient size (includes targeted exams where dose is matc hed to clinical indication); or iterative reconstruction. FINDINGS: Stable postoperative changes resection of the RIGHT frontoethmoidal mucocele. Postoperative changes i nvolving the RIGHT frontal sinus. Mild LEFT to RIGHT nasal septal deviation with a leftward directed spur. LEFT alexandro bullosa. Mild narrowing of the ostiomeatal units bilaterally. Lamina papyracea appe ars intact. Paranasal sinuses are well aerated. Frontal sinuses are well aerated. Mastoid air cells are well aera mayela. Normal posterior nasopharynx. Normal parapharyngeal fat. No evidence of recurrent mucocele. Inci dental cerebellar tonsillar ectopia. CT/CT sinus wo con* [id number] IMPRESSION: 1. Stable postoperative changes resection of the RIGHT frontoethmoidal mucocel e with postoperative changes involving the RIGHT frontal sinus. No evidence of recurrent mucocele. 2. No evidence of acute sinusitis 3. Paranasal sinuses and mastoid air cells are well aerated. 4. No significant change since 01/16/2023
== END 2024-03-19 08:29 | disposition home or self-care (01) ==
PROVIDERS: PCP Family Medicine; Visit Provider Family Medicine
DX: J34.1 Cyst and mucocele of nose and nasal sinus (principal); Z98.890 Other specified postprocedural states
CPT/HCPCS: 70486

== ENCOUNTER 2024-04-23 10:00 | Outpatient (CLI) | payer MEDICAID, SELFPAY ==
--- NOTE | 2024-04-23 09:35 | MM_ITS ---
WS: [id number] BILATERAL SCREENING DIGITAL TOMOSYNTHESIS MAMMOGRAM WITH CAD HISTORY: SCREENING COMPARISON: 04/05/2023, 07/20/2022 Bilateral CC and MLO views with tomosynthesis and synthetic mammography submitted. Computer aided det ection analyzed. Breast composition: There are scattered areas of fibroglandular density. No suspicious masses, microc alcifications or architectural distortion. Benign scattered calcifications in each breast. MM/[place] [id number] IMPRESSION: BI-RADS: 2-Benign FOLLOW UP: 1 Year Follow-up
== END 2024-04-23 10:01 | disposition home or self-care (01) ==
PROVIDERS: PCP Family Medicine; Visit Provider Family Medicine
DX: Z12.31 Encounter for screening mammogram for malignant neoplasm of breast (principal)
CPT/HCPCS: 77063; 77067

== ENCOUNTER 2024-08-23 00:25 | Emergency (ER) | payer MEDICAID, SELFPAY ==
[2024-08-23 00:31] VITALS: BP 118/81; PULSE 73; RESP 16; TEMP 36.4; O2SAT 100
[2024-08-23 00:55] LABS: Bilirubin Urine Negative (Negative); Blood Urine 3+ (Negative); Glucose Urine UA Negative (Normal); Ketones Urine Negative (Negative); Leukocyte Esterase Urine 2+ (Negative); Nitrate Urine Positive (Negative); Protein Urine 2+ (Negative); Specific Gravity, Urine 1.025 (1.005-1.030); Urine Appearance Cloudy (CLEAR); Urine Color Dark Yellow (Yellow)
[2024-08-23 00:57] LABS: Add Urine Microscopic? YES; Bacteria Urine 2+ /hpf; RBC Urine >100 /hpf (0-2); Squamous Epithelial Cell Urine 0-5 /hpf (0-5); WBC Urine >100 /hpf (0-5)
[2024-08-23 01:00] LABS: Add Urine Culture? Yes
[2024-08-23 01:36] LABS: Basophils # 0.1 10^3/uL (0.0-0.1); Basophils % 0.6 %; Eosinophils # 0.2 10^3/uL (0.0-0.8); Eosinophils % 1.9 %; Hematocrit 40.6 % (36-47); Lymphocytes # 3.1 10^3/uL (0.8-4.8); Lymphocytes % 30.3 %; Mean Corpuscular HGB Conc 32.3 g/dL (30-55); Mean Corpuscular Hemoglobin 28.7 pg (27-33); Mean Platelet Volume 10.9 fL (7.4-10.4); Monocytes # 0.6 10^3/uL (0.2-0.9); Monocytes % 6.2 %; Neutrophils # 6.24 10^3/uL (1.8-7.7); Neutrophils % 60.6 %; Nucleated Red Blood Cells % 0 %; Platelet Count 256 10^3/cmm (157-399); Red Blood Count 4.56 10^6/uL (3.85-5.65); Red Cell Distribution Width 15.9 % (12.1-15.1)
[2024-08-23 01:57] LABS: Alanine Aminotransferase 35 U/L (0-33); Albumin Level 4.1 g/dL (3.5-5.2); Alkaline Phosphatase 115 U/L (35-105); Aspartate Amino Transferase 27 U/L (0-32); Blood Urea Nitrogen 16 mg/dL (6-20); Calcium 9.3 mg/dL (8.5-10.5); Carbon Dioxide 30 mmol/L (22-29); Chloride 101 mmol/L (98-107); Creatinine Clr Calc Pharmacy 164.2704; Globulin 3.2 g/dL (1.3-4.6); Glomerular Filtration Rate 135.3 mL/min (90-130); Glucose 126 mg/dL (65-115); Osmolality Calculated 293 mOsm/kg (285-295); Sodium 140 mmol/L (136-145); Total Bilirubin 0.3 mg/dL (0.15-1.2); Total Protein 7.3 g/dL (6.6-8.7)
--- NOTE | 2024-08-23 02:09 | W.ED.FEMALGU ---
HPI - Female Genitourinary General: Chief complaint: Urogenital-Female Stated complaint: flank pain, blood in urine w/ pain Time Seen by Provider: 08/23/24 02:02 History of Present Illness: 43-year-old female with dysuria, blood in her urine, and mild right lower quadrant pain that started 24 hours ago. She has not vomited. No fever. She has not had flank pain. Pain is not severe, and only when urinating essentially. She has a history of gastric sleeve surgery, hysterectomy, and appendectomy. Related Data Home Medications Medication Instructions Recorded Confirmed albuterol sulfate 90 mcg/actuation 1 - 2 puff inhalation Q4H PRN 02/10/20 03/06/24 aerosol inhaler (ProAir HFA) Shortness Of Breath hydrocodone 10 mg-acetaminophen 1 tab PO TID PRN Pain 02/10/20 03/06/24 325 mg tablet tramadol 50 mg tablet 50 - 100 mg PO TID PRN FIBROMYALGIA 02/10/20 03/06/24 desvenlafaxine succinate 25 mg 25 mg PO DAILY 12/29/21 03/06/24 tablet,extended release 24 hr (Pristiq) irbesartan 300 mg tablet 300 mg PO DAILY 05/25/22 03/06/24 metoprolol succinate 50 mg 50 mg PO DAILY 05/25/22 03/06/24 tablet,extended release 24 hr aripiprazole 10 mg tablet 10 mg PO DAILY 06/08/23 03/06/24 conjugated estrogens 1.25 mg 2.5 mg PO DAILY 06/08/23 03/06/24 tablet (Premarin) insulin aspart U-100 100 unit/mL SUBCUT ONCE 03/06/24 03/06/24 (3 mL) subcutaneous pen Previous Rx's Medication Instructions Recorded nystatin-triamcinolone 100,000 1 applic topical BID PRN vulvitis 05/25/22 unit/gram-0.1 % topical ointment #30 grams Diabetic Shoes with 3 pairs of #1 ea 02/07/23 inserts triamcinolone acetonide 0.1 % 1 applic topical TID #80 grams 02/15/23 topical cream dicyclomine 20 mg tablet 20 mg PO BID PRN abdominal pain 06/08/23 #14 tabs hydrocodone 5 mg-acetaminophen 325 1 tab PO Q6H PRN pain #14 tabs 06/08/23 mg tablet levofloxacin 500 mg tablet 500 mg PO DAILY 7 days #7 tabs 08/23/24 promethazine 25 mg tablet 25 mg PO Q6H PRN nausea and 08/23/24 vomiting #10 tabs Allergies Allergy/AdvReac Type Severity Reaction Status Date / Time adhesive tape Allergy ALGY-Rash Verified 08/23/24 00:36 cefdinir Allergy ALGY-Hives Verified 08/23/24 00:36 etodolac Allergy Unknown Verified 08/23/24 00:36 lidocaine Allergy ALGY-Hives Verified 08/23/24 00:36 ondansetron [From Zofran] Allergy ALGY-Hives Verified 08/23/24 00:36 pseudoephedrine Allergy ALGY-Hives Verified 08/23/24 00:36 [From Sudafed] Sulfa (Sulfonamide Allergy Unknown Verified 08/23/24 00:36 Antibiotics) sulfamethazine Allergy ALGY-Hives Verified 08/23/24 00:36 PFSH ED PFSH: Medical History PCR DNA positive for HSV2 (~05/2022) No pertinent past medical history neghx: dm,thyroid,dvt/pe PCP: Dr. Mckeon Hypertension Meningitis due to bacteria CSF leak from nose Mucocele of frontal sinus Fibromyalgia Surgical History Hx of removal of cyst Removed from L breast Hx of tubal ligation 10/27/2004, tubal ligation. Performed by Dr. Reji Alan at [facility] in [place], [place]. Hx of laparoscopy 1----04/25/2006--Right ovarian cystectomy. Diagnosis: Pelvic pain, ruptured ovarian cyst. Performed by Dr. Shemar Lomax at [facility] in [place], [place] 2-----11/22/2007, Lysis of adhesions with left salpingectomy. Diagnosis: Chronic pelvic pain. Performed by Dr. Reji Alan at [facility] in [place], [place]. 3------ 11/10/2008 Left salpingo-oophorectomy with lysis of adhesions. Diagnosis: Chronic pelvic pain. Performed by Dr. Reji Alan at [facility] in [place], [place]. 4------ Diagnostic. No significant findings found. Diagnosis: Chronic pelvic pain. Performed by Dr. Reji Alan at [facility] in [place], [place]. Hx of dilation and curettage (~01/17/05) 01/17/2005--Diagnoses: Delayed bleeding (6 weeks). Performed [address] Reji Alan at [facility] in [place], [place]. History of surgery of head (~03/10/22) leaking spinal fluid through nose, correct hemorrhage Hx of hysterectomy (~07/31/06) Laparoscopic assisted vaginal hysterectomy with right salpingo-oophorectomy and destruction of left ovarian cyst. Diagnosis: Chronic pelvic pain. Performed by Dr. Reji lAan at [facility] in [place], [place] S/P matrixectomy of toe History of colonoscopy with polypectomy History of appendectomy History of tonsillectomy History of oral surgery History of endoscopic sinus surgery Family History Family/Other Breast cancer Paternal Aunt--dx age unknown Grandmother Breast cancer Maternal--dx age unknown Denies family history of Colon cancer Ovarian cancer Diabetes Heart disease Hypercholesteremia Hypertension Uterine cancer Thyroid disease Stroke Social History Substance/Drug Use: never Physical Exam Const: COMMON NORMALS: no acute distress GENERAL APPEARANCE: cooperative; not ill appearing and not frail appearing HENMT: COMMON NORMALS: normocephalic, atraumatic and Normal external nose present HEAD & SCALP: normocephalic and atraumatic FACE & SINUS: normal facial exam and face symmetric NOSE: Normal external nose present Eye: COMMON NORMALS: Equal, round and reactive pupils present and EOMs intact bilaterally PUPIL: Yes Equal, round and reactive pupils present Neck/C-Spine: GENERAL: Yes trachea midline Chest: CHEST: Yes Symmetrical chest wall rise Resp: COMMON NORMALS: normal respiratory effort, No retractions, No use of accessory muscles and clear to auscultation bilaterally AUSCULTATION: clear to auscultation bilaterally Cardio: COMMON NORMALS: regular rate and regular rhythm RATE: regular rate RHYTHM: regular rhythm GI: COMMON NORMALS: Normal to inspection, nondistended, normoactive bowel sounds present Extremity: COMMON NORMALS: no pedal edema Neuro: FREYA COMA SCALE: document GCS findings Freya coma scale eye opening: Spontaneous [place] coma scale verbal response: Orientated Freya coma scale motor response: Obey commands Freya coma scale total score: 15 SENSORY EXAM: Yes extremities (intact) Psych: COMMON NORMALS: speech normal SPEECH: Yes normal speech Skin: COMMON NORMALS: no rashes or lesions noted GENERAL SKIN EXAM: no rashes or lesions noted Course Vital Signs: Vital signs: Vital Signs Temperature 97.5 F L 08/23/24 00:31 Pulse Rate 73 08/23/24 00:31 Respiratory Rate 16 08/23/24 00:31 Blood Pressure 118/81 08/23/24 00:31 Pulse Oximetry 100 08/23/24 00:31 MDM - Female Medical Decision Making No flank pain on exam. She does have some hematuria, with urinary tract infection. She will be treated for UTI. She knows to return for development of flank pain or fever despite treatment. Lab Data 08/23/24 01:23 08/23/24 01:23 Laboratory Results WBC 10.30 10^3/uL (3.29-11.43) 08/23/24 01:23 RBC 4.56 10^6/uL (3.85-5.65) 08/23/24 01:23 Hgb 13.10 g/dL (11.27-16.99) 08/23/24 01:23 Hct 40.6 % (36-47) 08/23/24 01:23 MCV 89.0 fl (85-98) 08/23/24 01:23 MCH 28.7 pg (27-33) 08/23/24 01:23 MCHC 32.3 g/dL (30-55) 08/23/24 01:23 RDW 15.9 % (12.1-15.1) H 08/23/24 01:23 Plt Count 256 10^3/cmm (157-399) 08/23/24 01:23 MPV 10.9 fL (7.4-10.4) H 08/23/24 01:23 Neut % (Auto) 60.6 % 08/23/24 01:23 Lymph % (Auto) 30.3 % 08/23/24 01:23 Union % (Auto) 6.2 % 08/23/24 01:23 Eos % (Auto) 1.9 % 08/23/24 01:23 Baso % (Auto) 0.6 % 08/23/24 01:23 Neut # (Auto) 6.24 10^3/uL (1.8-7.7) 08/23/24 01:23 Lymph # (Auto) 3.1 10^3/uL (0.8-4.8) 08/23/24 01:23 Union # (Auto) 0.6 10^3/uL (0.2-0.9) 08/23/24 01:23 Eos # (Auto) 0.2 10^3/uL (0.0-0.8) 08/23/24 01:23 Baso # (Auto) 0.1 10^3/uL (0.0-0.1) 08/23/24 01:23 Nucleated RBC % (auto) 0 % 08/23/24 01:23 Nucleated RBCs # 0.0 /100WBC 08/23/24 01:23 Sodium 140 mmol/L (136-145) 08/23/24 01:23 Potassium 4.0 mmol/L (3.5-5.1) 08/23/24 01:23 Chloride 101 mmol/L (98-107) 08/23/24 01:23 Carbon Dioxide 30 mmol/L (22-29) H 08/23/24 01:23 Anion Gap 13.0 (5-19) 08/23/24 01:23 BUN 16 mg/dL (6-20) 08/23/24 01:23 Creatinine 0.5 mg/dL (0.5-0.9) 08/23/24 01:23 GFR Calculation 135.3 mL/min (90-130) H 08/23/24 01:23 Glucose 126 mg/dL (65-115) H 08/23/24 01:23 Calculated Osmolality 293 mOsm/kg (285-295) 08/23/24 01:23 Calcium 9.3 mg/dL (8.5-10.5) 08/23/24 01:23 Total Bilirubin 0.3 mg/dL (0.15-1.2) 08/23/24 01:23 AST 27 U/L (0-32) 08/23/24 01:23 ALT 35 U/L (0-33) H 08/23/24 01:23 Alkaline Phosphatase 115 U/L (35-105) H 08/23/24 01:23 Total Protein 7.3 g/dL (6.6-8.7) 08/23/24 01:23 Albumin 4.1 g/dL (3.5-5.2) 08/23/24 01:23 Globulin 3.2 g/dL (1.3-4.6) 08/23/24 01:23 Urine Color Dark yellow (Yellow) A 08/23/24 00:46 Urine Appearance Cloudy (CLEAR) A 08/23/24 00:46 Urine pH 6.0 (5-7) 08/23/24 00:46 Ur Specific Hanna 1.025 (1.005-1.030) 08/23/24 00:46 Urine Protein 2+ (Negative) A 08/23/24 00:46 Urine Glucose (UA) Negative (Normal) 08/23/24 00:46 Urine Ketones Negative (Negative) 08/23/24 00:46 Urine Blood 3+ (Negative) A 08/23/24 00:46 Urine Nitrate Positive (Negative) A 08/23/24 00:46 Urine Bilirubin Negative (Negative) 08/23/24 00:46 Urine Urobilinogen 1.0 mg/dL (Negative) 08/23/24 00:46 Ur Leukocyte Esterase 2+ (Negative) A 08/23/24 00:46 Urine RBC >100 /hpf (0-2) H 08/23/24 00:46 Urine WBC >100 /hpf (0-5) H 08/23/24 00:46 Ur Squamous Epith Cells 0-5 /hpf (0-5) 08/23/24 00:46 Amorphous Sediment Not Reportable 08/23/24 00:46 Urine Bacteria 2+ /hpf (NONE) H 08/23/24 00:46 Hyaline Casts 0.40 /lpf 08/23/24 00:46 No radiology studies performed this visit Discharge Plan Discharge Patient Disposition: Home Clinical Impression: Urinary tract infection Condition: Stable Prescriptions: New promethazine 25 mg tablet 25 mg PO Q6H PRN (Reason: nausea and vomiting) Qty: 10 0RF levofloxacin 500 mg tablet 500 mg PO DAILY 7 Days Qty: 7 0RF No Action desvenlafaxine succinate [Pristiq] 25 mg tablet extended release 24 hr 25 mg PO DAILY nystatin-triamcinolone 100,000-0.1 unit/gram-% ointment 1 applic topical BID PRN (Reason: vulvitis ) Qty: 30 0RF Rx Instructions: APPLY A THIN FILM TO THE AFFECTED AREA ONLY FOR 7-10 DAYS metoprolol succinate 50 mg tablet extended release 24 hr 50 mg PO DAILY irbesartan 300 mg tablet 300 mg PO DAILY (DME) Diabetic Shoes with 3 pairs of inserts See Rx Instructions .Route .MEDSUPPLY Qty: 1 0RF Rx Instructions: As directed by ANNALISE&O insulin aspart U-100 100 unit/mL (3 mL) insulin pen SUBCUT ONCE triamcinolone acetonide 0.1 % cream 1 applic topical TID Qty: 80 2RF hydrocodone-acetaminophen 10-325 mg tablet 1 tab PO TID PRN (Reason: Pain) tramadol 50 mg tablet 50 - 100 mg PO TID PRN (Reason: FIBROMYALGIA) albuterol sulfate [ProAir HFA] 90 mcg/actuation HFA aerosol inhaler 1 - 2 puff INHALATION Q4H PRN (Reason: Shortness Of Breath) Premarin 1.25 mg tablet 2.5 mg PO DAILY aripiprazole 10 mg tablet 10 mg PO DAILY dicyclomine 20 mg tablet 20 mg PO BID PRN (Reason: abdominal pain) Qty: 14 0RF hydrocodone-acetaminophen 5-325 mg tablet 1 tab PO Q6H PRN (Reason: pain) Qty: 14 0RF Discharge Orders: Discharge ED (Routine); Ordered 08/23/24 Ordered By: Anastacio Leonard Referrals: Sage Mckeon MD [Primary Care Provider] - 4-7 days Patient Instructions: Urinary Tract Infection in Women (ED), Opioid Safety, Pain Management Activity Restrictions/Additional Instructions: Medication as directed. Return for fever greater than 100 despite 2-3 doses of antibiotics, worsening pain despite treatment, vomiting liquids or medications, other concerning symptoms. See your doctor next week. You should have your urine retested to ensure that you are clearing the blood and infection from the urine. Coding Level of Care Code ED [employer] Engineer for Mindi Chavez
[2024-08-23] MEDS: levoFLOXacin 500 mg Tablet PO (02:32)
== END 2024-08-23 02:37 | disposition home or self-care (01) ==
PROVIDERS: Physician Assistant; Emergency Provider Emergency Medicine; PCP Family Medicine
DX: N39.0 Urinary tract infection, site not specified (principal); I10 Essential (primary) hypertension
CPT/HCPCS: 36415; 80053; 81001; 85025; 87077; 87086; 87186; 99283

== ENCOUNTER → 2024-10-04 16:12 | Outpatient (BNVA) | payer MEDICAID, SELFPAY | PROVIDERS: PCP Family Medicine; Visit Provider Emergency Medicine | DX: M77.32 Calcaneal spur, left foot (principal) | CPT/HCPCS: 73630 ==

== ENCOUNTER → 2024-10-23 08:20 | Outpatient (BNVA) | payer MEDICAID, SELFPAY | PROVIDERS: PCP Family Medicine; Visit Provider Student in an Organized Health Care Education/Training Program | DX: M75.32 Calcific tendinitis of left shoulder (principal); M75.42 Impingement syndrome of left shoulder | CPT/HCPCS: 20610; 99204; J3301 ==

== ENCOUNTER 2024-12-24 08:15 | Outpatient (CLI) | payer MEDICAID, SELFPAY ==
--- NOTE | 2024-12-24 08:18 | MR_ITS ---
WS: [id number] MRI HEAD WITH CONTRAST TECHNIQUE: Sagittal T1, T2 axial, T2 axial FLAIR, axial susceptibility weighted imaging, axial diffusion weighted images, and coronal T2 images were obtained. Pre and post-T1 axial and post T1 coronal images. ADC and FSPGR images. CLINICAL INFORMATION: MUCOCELE OF FRONTAL SINUS COMPARISON: CT sinus 03/19/2024 FINDINGS: No evidence of restricted diffusion to suggest acute ischemia. No suspicious intracranial signal abnormalities. No hemosiderin on the susceptibly weighted images. Stable postoperative changes resection of the RIGHT frontoethmoidal mucocele with postoperative changes involving the RIGHT frontal sinus. No evidence of recurrent mucocele. Small amount of encephalomalacia in the underlying inferior RIGHT frontal lobe. No paranasal sinuses are well aerated. No fluid in the visualized protruding encephalocele. Paranasal sinuses. Mastoid air cells are well aerated. Normal posterior nasopharynx. No abnormal gadolinium enhancement. No hemosiderin on susceptibility-weighted images. MR/MR head wo/w con [id number] IMPRESSION: 1. Stable postoperative changes resection of the RIGHT frontoethmoidal mucocel e with postoperative changes involving the RIGHT frontal sinus. No evidence of recurrent mucocele. 2. Slight postoperative encephalomalacia RIGHT inferior frontal lobe deep to t he RIGHT frontal postoperative changes. No evidence of protruding encephalocele or CSF collection 3. No fluid in the paranasal sinuses to indicate rapid CSF leak.
[2024-12-24] MEDS: gadobenate dimeglumine 20 mL vial IV (09:06)
== END 2024-12-24 08:16 | disposition home or self-care (01) ==
LOC: RAD 08:17
PROVIDERS: PCP Family Medicine; Visit Provider Family Medicine
DX: J34.1 Cyst and mucocele of nose and nasal sinus (principal); Z98.890 Other specified postprocedural states; G93.89 Other specified disorders of brain
CPT/HCPCS: 70553

== ENCOUNTER → 2025-02-11 15:25 | Outpatient (BNVA) | payer MEDICAID, SELFPAY | PROVIDERS: PCP Family Medicine; Visit Provider Physician Assistant | DX: M75.42 Impingement syndrome of left shoulder (principal); M75.32 Calcific tendinitis of left shoulder | CPT/HCPCS: 99213 ==

== ENCOUNTER 2025-02-16 09:45 | Emergency (ER) | payer MEDICAID, SELFPAY ==
[2025-02-16 10:01] VITALS: BP 130/84; PULSE 70; TEMP 36.4; O2SAT 99; BMI 40.7
--- NOTE | 2025-02-16 10:15 | XRR_ITS ---
PROCEDURE INFORMATION: Exam: XR Chest Exam date and time: 02/16/2025 10:17 AM Age: 44 years old Clinical indication: Other: Congestion; Additional info: Dyspnea/cough TECHNIQUE: Imaging protocol: Radiologic exam of the chest. Views: 1 view. COMPARISON: CR XR chest 2V* [id number] 02/28/2018 10:52 PM FINDINGS: Lungs: Unremarkable. No consolidation. Pleural spaces: Unremarkable. No pleural effusion. No pneumothorax. Heart/Mediastinum: Unremarkable. No cardiomegaly. Bones/joints: Unremarkable. XR/XR chest 1V portable [id number] IMPRESSION: No acute findings.
[2025-02-16 11:02] LABS: Basophils # 0.1 10^3/uL (0.0-0.1); Basophils % 0.7 %; Eosinophils # 0.2 10^3/uL (0.0-0.8); Eosinophils % 2.4 %; Hematocrit 41.4 % (36-47); Lymphocytes # 2.8 10^3/uL (0.8-4.8); Lymphocytes % 38.8 %; Mean Corpuscular HGB Conc 31.9 g/dL (30-55); Mean Corpuscular Hemoglobin 29.7 pg (27-33); Mean Platelet Volume 10.8 fL (7.4-10.4); Monocytes # 0.6 10^3/uL (0.2-0.9); Monocytes % 8.4 %; Neutrophils # 3.51 10^3/uL (1.8-7.7); Neutrophils % 49.4 %; Nucleated Red Blood Cells % 0 %; Platelet Count 214 10^3/cmm (157-399); Red Blood Count 4.45 10^6/uL (3.85-5.65); Red Cell Distribution Width 13.4 % (12.1-15.1); White Blood Count 7.11 10^3/uL (3.29-11.43)
[2025-02-16 11:18] LABS: Alanine Aminotransferase 31 U/L (0-33); Albumin Level 4.1 g/dL (3.5-5.2); Alkaline Phosphatase 100 U/L (35-105); Anion Gap 15.3 (5-19); Aspartate Amino Transferase 22 U/L (0-32); Blood Urea Nitrogen 15 mg/dL (6-20); Calcium 9.4 mg/dL (8.5-10.5); Carbon Dioxide 28 mmol/L (22-29); Chloride 100 mmol/L (98-107); Creatinine Clr Calc Pharmacy 167.5805; Globulin 3.5 g/dL (1.3-4.6); Glomerular Filtration Rate 134.7 mL/min (90-130); Glucose 91 mg/dL (65-115); Osmolality Calculated 288 mOsm/kg (285-295); Potassium 4.3 mmol/L (3.5-5.1); Sodium 139 mmol/L (136-145); Total Bilirubin 0.3 mg/dL (0.15-1.2); Total Protein 7.6 g/dL (6.6-8.7)
[2025-02-16 11:23] VITALS: BP 128/65; PULSE 67; RESP 18; O2SAT 98
--- NOTE | 2025-02-16 11:32 | ED_ITS ---
HPI - URI/Sore Throat 2 General: Chief Complaint: Upper Respiratory Infection Stated Complaint: loss of smell and taste, congestion Time Seen by Provider: 02/16/25 11:17 Source: patient Mode of arrival: ambulatory Limitations: no limitations History of Present Illness: 44-year-old female who states that she h as not felt well since she states she has had cough congestion body aches she is lost her sense of taste and smell. States she has been around sick contacts with the same. Denies any fevers or vomiting. Associated symptoms: Reports nasal congestion; Deny abdominal pain, chills, chest pain, diarrhea, fever(s), headache(s), nausea or vomiting Related Data Home Medications ?Medication ?Instructions ?Recorded ?Confirmed albuterol sulfate 90 mcg/actuation 1 - 2 puff inhalati on Q4H PRN 02/10/20 02/11/25 aerosol inhaler (ProAir HFA) Shortness Of Breath hydrocodone 10 mg-acetaminophen 1 tab PO TID PRN Pain 02/10/20 02/11/25 325 mg tablet tramadol 50 mg tablet 50 - 100 mg PO TID PRN FIBRO MYALGIA 02/10/20 02/11/25 desvenlafaxine succinate 25 mg 25 mg PO DAILY 12/29/21 02/11/25 tablet,extended release 24 hr (Pristiq) irbesartan 300 mg tablet 300 mg PO DAILY 05/25/22 metoprolol succinate 50 mg 50 mg PO DAILY 05/25/22 tablet,extended release 24 hr aripiprazole 10 mg tablet 10 mg PO DAILY 06/08/23/10/18 conjugated estrogens 1.25 mg 2.5 mg PO DAILY 06/08/23 02/11/25 tablet (Premarin) insulin aspart U-100 100 unit/mL SUBCUT ONCE 03/06/24 02/11/25 (3 mL) subcutaneous pen Previous Rx's ?Medication ?Instructions ?Recorded nystatin-triamcinolone 100,000 1 applic topical BID AL N vulvitis 05/25/22 unit/gram-0.1 % topical ointment #30 grams Diabetic Shoes with 3 pairs of #1 ea 02/07/23 inserts triamcinolone acetonide 0.1 % 1 applic topical TID #80 grams 02/15/23 topical cream dicyclomine 20 mg tablet 20 mg PO BID PRN abdominal p ain 06/08/23 #14 tabs hydrocodone 5 mg-acetaminophen 325 1 tab PO Q6H PRN pa in #14 tabs 06/08/23 mg tablet promethazine 25 mg tablet 25 mg PO Q6H PRN nausea and 08/23/24 vomiting #10 tabs cam walker #1 ea 10/04/24 diclofenac sodium 3 % topical gel 1 applic topical BID PRN muscle 10/04/24 pain, tension #100 grams Allergies Allergy/AdvReac Type Severity Reaction Status Date / Time adhesive tape Allergy ALGY-Rash Verified 02/16/25 10:06 cefdinir Allergy ALGY-Hives Verified 02/16/25 10:06 etodolac Allergy Unknown Verified 02/16/25 10:06 lidocaine Allergy ALGY-Hives Verified 02/16/25 10:06 ondansetron (From Zofran) Allergy ALGY-Hives Verified 02/16/25 10:06 pseudoephedrine (From Allergy ALGY-Hives Verified 02/16/25 10:06 Sudafed) Sulfa (Sulfonamide Allergy Unknown Verified 02/16/25 10:06 Antibiotics) sulfamethazine Allergy ALGY-Hives Verified 02/16/25 10:06 Review of Systems 2 Const: Reports: body aches; Denies: fever(s), chills or change in appetite ENMT: Reports: nasal congestion; Denies: throat pain or dental pain Card: Denies: chest pain Resp: Denies: dyspnea GI: Denies: abdominal pain, nausea, vomiting or diarrhea Musc: Denies: neck pain or back pain Skin/Breast: Denies: rash Neuro: Denies: headache(s) PFSH ED 2 PFSH: Medical History PCR DNA positive for HSV2 (~05/2022) No pertinent past medical history neghx: dm,thyroid,dvt/pe PCP: Dr. Mckeon Hypertension Meningitis due to bacteria CSF leak from nose Mucocele of frontal sinus Fibromyalgia Surgical History Hx of removal of cyst Removed from L breast Hx of tubal ligation 10/27/2004, tubal ligation. Performed by Dr. Reji Alan at [facility] in [place], [place]. Hx of laparoscopy 1----04/25/2006--Right ovarian cystectomy. Diagnosis: Pelvic pain, ruptured ovarian cyst. Performed by Dr. Shemar Lomax at [facility] in [place], [place] 2-----11/22/2007, Lysis of adhesions with left salpingectomy. Diagnosis: Chronic pelvic pain. Performed by Dr. Reji Alan at [facility] in [place], [place]. 3------ 11/10/2008 Left salpingo-oophorectomy with lysis of adhesions. Diagnosis: Chronic pelvic pain. Performed by Dr. Reji Alan at [facility] in [place], [place]. 4------ Diagnostic. No significant findings found. Diagnosis: Chronic pelvic pain. Performed by Dr. Reji Alan at [facility] in [place], [place]. Hx of dilation and curettage (~01/17/05) 01/17/2005--Diagnoses: Delayed bleeding (6 weeks). Performed by Dr[address] Reji Alan at [facility] in [place], [place]. History of surgery of head (~03/10/22) leaking spinal fluid through nose, correct hemorrhage Hx of hysterectomy (~07/31/06) Laparoscopic assisted vaginal hysterectomy with right salpingo-oophorectomy and destruction of left ovarian cyst. Diagnosis: Chronic pelvic pain. Performed by Dr. Reji Alan at [facility] in [place], [place] S/P matrixectomy of toe History of colonoscopy with polypectomy History of appendectomy History of tonsillectomy History of oral surgery History of endoscopic sinus surgery Family History Family/Other Breast cancer Paternal Aunt--dx age unknown Grandmother Breast cancer Maternal--dx age unknown Denies family history of Colon cancer Ovarian cancer Diabetes Heart disease Hypercholesteremia Hypertension Uterine cancer Thyroid disease Stroke Social History Smoking and tobacco/nicotine status: former use of tobacco/nicotine Substance/Drug Use: never Physical Exam 2 Const: COMMON NORMALS: no acute distress, patient oriented x3 and healthy appearing HENMT: COMMON NORMALS: normocephalic and atraumatic HEAD & SCALP: n ormocephalic and atraumatic THROAT: posterior oropharynx normal Neck/C-Spine: COMMON NORMALS: full ROM and supple Chest: COMMONS NORMALS: normal inspection of the chest Resp: COMMON NORMALS: normal respiratory effort, No retractions, No use of accessory muscles and clear to auscultation bilaterally AUSCULTATION: clear to auscultation bilaterally Cardio: COMMON NORMALS: regular rate, regular rhythm and No murmurs present (Cardio) RATE: regular rate RHYTHM: regular rhythm Extremity: COMMON NORMALS: normal to inspection and full ROM Neuro: COMMON NORMALS: patient oriented x3, moves all extremities and no focal motor deficits Psych: COMMON NORMALS: mental status grossly normal, Normal thought process present and cooperative THOUGHT PROCESS: Normal thought process present Skin: COMMON NORMALS: no rashes or lesions noted and no wounds GENERAL SKIN EXAM: no rashes or lesions noted Course 2 Vital Signs: Vital signs: Vital Signs Temperature 97.6 F 02/16/25 10:01 Pulse Rate 67 02/16/25 11:23 Respiratory Rate 18 02/16/25 11:23 Blood Pressure 128/65 02/16/25 11:23 Pulse Oximetry 98 02/16/25 11:23 Oxygen Delivery Me thod Room Air 02/16/25 10:01 MDM - URI/Sore Throat Medical Decision Making Patient presents here with upper respiratory infection COVID flu are negative she is well-appearing here stable for discharge follow-up PCP return if worsening. Medical Records I reviewed the patient's medical records. Lab Data I reviewed the patient's lab results. 02/16/25 10:57 02/16/25 10:57 Radiology Impressions Chest X-Ray 02/16/25 10:15 IMPRESSION: No acute findings. Laboratory Results WBC 7.11 10^3/uL (3.29-11.43) 02/16/25 10:57 RBC 4.45 10^6/uL (3.85-5.65) 02/16/25 10:57 Hgb 13.20 g/dL (11.27-16.99) 02/16/25 10:57 Hct 41.4 % (36-47) 02/16/25 10:57 MCV 93.0 fl (85-98) 02/16/25 10:57 MCH 29.7 pg (27-33) 02/16/25 10:57 MCHC 31.9 g/dL (30-55) 02/16/25 10:57 RDW 13.4 % (12.1-15.1) 02/16/25 10:57 Plt Count 214 10^3/cmm (157-399) 02/16/25 10:57 MPV 10.8 fL (7.4-10.4) H 02/16/25 10:57 Neut % (Auto) 49.4 % 02/16/25 10:57 Lymph % (Auto) 38.8 % 02/16/25 10:57 [place] % (Auto) 8.4 % 02/16/25 10:57 Eos % (Auto) 2.4 % 02/16/25 10:57 Baso % (Auto) 0.7 % 02/16/25 10:57 Neut # (Auto) 3.51 10^3/uL (1.8-7.7) 02/16/25 10:57 Lymph # (Auto) 2.8 10^3/uL (0.8-4.8) 02/16/25 10:57 [place] # (Auto) 0.6 10^3/uL (0.2-0.9) 02/16/25 10:57 Eos # (Auto) 0.2 10^3/uL (0.0-0.8) 02/16/25 10:57 Baso # (Auto) 0.1 10^3/uL (0.0-0.1) 02/16/25 10:57 Nucleated RBC % (auto) 0 % 02/16/25 10:57 Nucleated RBCs # 0.0 /100WBC 02/16/25 10:57 Sodium 139 mmol/L (136-145) 02/16/25 10:57 Potassium 4.3 mmol/L (3.5-5.1) 02/16/25 10:57 Chloride 100 mmol/L (98-107) 02/16/25 10:57 Carbon Dioxide 28 mmol/L (22-29) 02/16/25 10:57 Anion Gap 15.3 (5-19) 02/16/25 10:57 BUN 15 mg/dL (6-20) 02/16/25 10:57 Creatinine 0.5 mg/dL (0.5-0.9) 02/16/25 10:57 GFR Calculation 134.7 mL/min (90-130) H 02/16/25 10:57 Glucose 91 mg/dL (65-115) 02/16/25 10:57 Calculated Osmolality 288 mOsm/kg (285-295) 02/16/25 10:57 Calcium 9.4 mg/dL (8.5-10.5) 02/16/25 10:57 Total Bilirubin 0.3 mg/dL (0.15-1.2) 02/16/25 10:57 AST 22 U/L (0-32) 02/16/25 10:57 ALT 31 U/L (0-33) 02/16/25 10:57 Alkaline Phosphatase 100 U/L (35-105) 02/16/25 10:57 Total Protein 7.6 g/dL (6.6-8.7) 02/16/25 10:57 Albumin 4.1 g/dL (3.5-5.2) 02/16/25 10:57 Globulin 3.5 g/dL (1.3-4.6) 02/16/25 10:57 Influenza A (PCR) Negative (Negative) 02/16/25 10:30 Influenza Type B (PCR) Negative (Negative) 02/16/25 10:30 RSV (PCR) Negative (Negative) 02/16/25 10:30 SARS-CoV-2 (PCR) Negative (Negative) 02/16/25 10:30 All radiology interpretation(s) finalized by discharge Discharge Plan Discharge Patient Disposition: Home Clinical Impression: Upper respiratory infection Condition: Stable Prescriptions: No Action desvenlafaxine succinate [Pristiq] 25 mg tablet extended release 24 hr 25 mg PO DAILY nystatin-triamcinolone 100,000-0.1 unit/gram-% ointment 1 applic topical BID PRN (Reason: vulvitis ) Qty: 30 0RF Rx Instructions: APPLY A THIN FILM TO THE AFFECTED AREA ONLY FOR 7-10 DAYS metoprolol succinate 50 mg tablet extended release 24 hr 50 mg PO DAILY irbesartan 300 mg tablet 300 mg PO DAILY (DME) Diabetic Shoes with 3 pairs of inserts See Rx Instructions .Route .MEDSUPPLY Qty: 1 0RF Rx Instructions: As directed by ANNALISE&O insulin aspart U-100 100 unit/mL (3 mL) insulin pen SUBCUT ONCE (DME) sherry mehta See Rx Instructions .ROUTE .MEDSUPPLY Qty: 1 0RF Rx Instructions: As directed diclofenac sodium 3 % gel 1 applic topical BID PRN (Reason: muscle pain, tension) Qty: 100 0RF Rx Instructions: rub in well triamcinolone acetonide 0.1 % cream 1 applic topical TID Qty: 80 2RF hydrocodone-acetaminophen 10-325 mg tablet 1 tab PO TID PRN (Reason: Pain) tramadol 50 mg tablet 50 - 100 mg PO TID PRN (Reason: FIBROMYALGIA) albuterol sulfate [ProAir HFA] 90 mcg/actuation HFA aerosol inhaler 1 - 2 puff INHALATION Q4H PRN (Reason: Shortness Of Breath) Premarin 1.25 mg tablet 2.5 mg PO DAILY aripiprazole 10 mg tablet 10 mg PO DAILY dicyclomine 20 mg tablet 20 mg PO BID PRN (Reason: abdominal pain) Qty: 14 0RF hydrocodone-acetaminophen 5-325 mg tablet 1 tab PO Q6H PRN (Reason: pain) Qty: 14 0RF promethazine 25 mg tablet 25 mg PO Q6H PRN (Reason: nausea and vomiting) Qty: 10 0RF Discharge Orders: Discharge ED (Routine); Ordered 02/16/25 Ordered By: Satish Mitchell Referrals: Sage Mckeon MD [Primary Care Provider, Family Practice] Discharge Diet: Advance as tolerated Discharge Activity: Resume usual activity Patient Instructions: Upper Respiratory Infection (ED) Print Language: Malay Coding Level of Care Code ED [employer]s And Shoes Supervisor for Mindi Chavez
[2025-02-16 11:39] LABS: Influenza A NEGATIVE (Negative); Influenza B NEGATIVE (Negative); Respiratory Syncytial Virus Ce NEGATIVE (Negative); SARS-CoV-2 PCR NEGATIVE (Negative)
[2025-02-16] MEDS: dexamethasone 10 mg/mL INJ IM (11:40)
[2025-02-16] MEDS: ketorolac 30 mg/mL INJ IM (11:40)
[2025-02-16 11:51] VITALS: BP 128/65; PULSE 72; RESP 18; O2SAT 99
== END 2025-02-16 11:52 | disposition home or self-care (01) ==
PROVIDERS: Family Medicine; Emergency Provider Emergency Medicine; PCP Family Medicine
DX: J06.9 Acute upper respiratory infection, unspecified (principal); Z11.52 Encounter for screening for COVID-19
CPT/HCPCS: 71045; 80053; 85025; 87637; 96372; 99284; J1100; J1885

== ENCOUNTER 2025-02-18 15:37 | Outpatient (CLI) | payer MEDICAID, SELFPAY ==
--- NOTE | 2025-02-18 16:00 | MR_ITS ---
WS: [id number] MRI LEFT SHOULDER NONCONTRAST TECHNIQUE: Sagittal T2, coronal T1, T2 and proton density imaging. Axial gradient PDE imaging. CLINICAL INFORMATION: impingement of left shoulder COMPARISON: MRI April 13 FINDINGS: Advanced degenerative arthritis AC joint with fluid and edema. Mild narrowing of the subacromial space. Calcific tendinitis distal supraspinatus and infraspinatus with susceptibility artifact. Small amount of subacromial and subdeltoid fluid. Infraspinatus and supraspinatus appear intact. Normal teres minor. Biceps tendon appears intact within the bicipital groove. Intra-articular biceps tendon appears intact. Severe degenerative narrowing of the glenohumeral articulation advanced for patient this age. Normal bone marrow signal in the glenoid. Labrum appears grossly normal today. Normal soft tissues. MR/MR shoulder LT wo con* [id number] IMPRESSION: 1. Advanced degenerative arthritis AC joint with fluid and edema. Subacromial spurring with impingement on the rotator cuff. 2. Dense calcific tendinitis distal supraspinatus and infraspinatus with mild chronic thinning. 3. Rotator cuff is otherwise intact. 4. Biceps tendon appears intact within the bicipital groove. Intra-articular b iceps tendon appears intact. 5. Severe degenerative narrowing of the glenohumeral articulation advanced for patient this age. This is progressed since 2020
== END 2025-02-18 15:38 | disposition home or self-care (01) ==
PROVIDERS: PCP Family Medicine; Visit Provider Physician Assistant
DX: M75.42 Impingement syndrome of left shoulder (principal); M75.32 Calcific tendinitis of left shoulder; M19.012 Primary osteoarthritis, left shoulder; M77.8 Other enthesopathies, not elsewhere classified
CPT/HCPCS: 73221

== ENCOUNTER → 2025-03-04 15:26 | Outpatient (BNVA) | payer MEDICAID, SELFPAY | PROVIDERS: PCP Family Medicine; Visit Provider Physician Assistant | DX: M25.551 Pain in right hip (principal); M70.61 Trochanteric bursitis, right hip | CPT/HCPCS: 20610; 73502; 99213; J3301; J3490; J9999 ==

== ENCOUNTER → 2025-03-18 15:02 | Outpatient (BNVA) | payer MEDICAID, SELFPAY | PROVIDERS: PCP Family Medicine; Visit Provider Student in an Organized Health Care Education/Training Program | DX: M75.32 Calcific tendinitis of left shoulder (principal); M75.42 Impingement syndrome of left shoulder; M75.22 Bicipital tendinitis, left shoulder; Z09 Encounter for follow-up examination after completed treatment for conditions other than malignant neoplasm; M19.012 Primary osteoarthritis, left shoulder | CPT/HCPCS: 99214 ==

== ENCOUNTER → 2025-03-23 06:46 | Outpatient (BNVA) | payer MEDICAID, SELFPAY | PROVIDERS: PCP Family Medicine; Visit Provider Podiatrist Foot & Ankle Surgery | DX: E11.42 Type 2 diabetes mellitus with diabetic polyneuropathy (principal); L60.3 Nail dystrophy | CPT/HCPCS: 99213 ==

== ENCOUNTER → 2025-04-23 06:42 | Outpatient (BNVA) | payer MEDICAID, SELFPAY | PROVIDERS: PCP Family Medicine; Visit Provider Podiatrist Foot & Ankle Surgery | DX: L60.0 Ingrowing nail (principal) | CPT/HCPCS: 11750; J9999 ==

== ENCOUNTER 2025-04-24 08:10 | Outpatient (CLI) | payer MEDICAID, SELFPAY ==
--- NOTE | 2025-04-24 08:16 | MM_ITS ---
WS: [id number] BILATERAL SCREENING DIGITAL TOMOSYNTHESIS MAMMOGRAM WITH CAD HISTORY: SCREENING COMPARISON: 04/23/2024, 04/05/2023 Bilateral CC and MLO views with tomosynthesis and synthetic mammography submitted. Computer aided detection analyzed. Breast composition: The breasts are almost entirely fatty. No suspicious masses, microcalcifications or architectural distortion. Benign stable calcifications. MM/MM scr BI tomosynthesis [id number] IMPRESSION: BI-RADS: 2 - Benign. FOLLOW UP: 1 Year Follow-up
== END 2025-04-24 08:11 | disposition home or self-care (01) ==
LOC: RAD 08:10
PROVIDERS: PCP Family Medicine; Visit Provider Family Medicine
DX: Z12.31 Encounter for screening mammogram for malignant neoplasm of breast (principal); R92.313 Mammographic fatty tissue density, bilateral breasts; R92.1 Mammographic calcification found on diagnostic imaging of breast
CPT/HCPCS: 77063; 77067

== ENCOUNTER → 2025-05-12 14:51 | Outpatient (BNVA) | payer MEDICAID, SELFPAY | PROVIDERS: PCP Family Medicine; Visit Provider Student in an Organized Health Care Education/Training Program | DX: M75.32 Calcific tendinitis of left shoulder (principal); M75.42 Impingement syndrome of left shoulder; M75.22 Bicipital tendinitis, left shoulder; Z09 Encounter for follow-up examination after completed treatment for conditions other than malignant neoplasm; M19.012 Primary osteoarthritis, left shoulder | CPT/HCPCS: 99214 ==

== ENCOUNTER → 2025-06-09 16:03 | Outpatient (BNVA) | payer MEDICAID, SELFPAY | PROVIDERS: PCP Family Medicine; Visit Provider Physician Assistant | DX: S62.113A Displaced fracture of triquetrum [cuneiform] bone, unspecified wrist, initial encounter for closed fracture (principal); X58.XXXA Exposure to other specified factors, initial encounter | CPT/HCPCS: 73110; 99213 ==

== ENCOUNTER 2025-06-11 08:34 | Day surgery (SDC) | payer MEDICAID, SELFPAY ==
[2025-06-11] VITALS (11 sets, daily range): BP systolic 106–141; BP diastolic 61–85; PULSE 53–69; RESP 14–16; TEMP 36.2–36.8; O2SAT 94–100; BMI 36.5
[2025-06-11] MEDS: acetaminophen 1,000 MG/100 ML PIGGYBACK 400 MG IV (10:18)
--- NOTE | 2025-06-11 10:51 | ANES.PREANE2 ---
Pre-Anesthetic Assessment Height/Weight: Height 1.6 m Weight 93.44 kg Temp Pulse Resp BP Pulse Ox O2 Del Method 97.2 F L 66 16 106/62 95 Room Air 06/11/25 09:07 06/11/25 10:43 06/11/25 10:43 06/11/25 10:43 06/11/25 10:43 06/11/25 10:43 Operation Date: 06/11/25 10:45 Proposed Procedures p shoulder diagnostic and surgical arthroscopy and calcific tendonitis excision(Left) - Jose Jordan DO s Arthroscopic Shoulder Subacromial Decomp Arthroscopic Shoulder Subacromial Decompression(Left) - Jose Jordan DO s Arthroscopic Distal Clavicle Resection Arthroscopic AC Joint Resection(Left) - Jose Jordan DO s rotator cuff debridement versus repair(Left) - Jose Jordan DO s possible biceps tenotomy versus tenodesis(Left) - Jose Jordan DO Familial anesthetic complications: None Was Beta Audelia taken within 24 hours: N/A Was Clonidine taken within 24 hours: N/A Last intake: Intake Last Liquid Date 06/10/25 Last Liquid Time 23:30 Last Solid Date 06/10/25 Last Solid Time 20:30 Social No alcohol and No tobacco Exam alert, oriented x 3, clear to auscultation bilaterally and regular rate & rhythm Airway Mallampati: Class II Dentition: full Pulmonary Asthma Metabolic Diabetes Mellitus and Morbid Obesity Anesthetic Plan ASA status: 2 Anesthesia: General and Regional (specify below) Risk of > 500 ml blood loss (7ml/kg in children): No Medications/Allergies Home Medications ?Medication ?Instructions ?Recorded ?Confirmed ?Last Taken ?Type albuterol sulfate 90 mcg/actuation 1 - 2 puff inhalation Q4H PRN 02/10/20 06/10/25 Unknown History aerosol inhaler (ProAir HFA) Shortness Of Breath hydrocodone 10 mg-acetaminophen 1 tab PO TID PRN Pain 02/10/20 06/10/25 06/10/25 History 325 mg tablet tramadol 50 mg tablet 50 mg PO TID PRN FIBROMYALGIA 02/10/20 06/10/25 06/10/25 History desvenlafaxine succinate 25 mg 50 mg PO DAILY 12/29/21 06/10/25 06/10/25 History tablet,extended release 24 hr (Pristiq) metoprolol succinate 50 mg 50 mg PO DAILY 05/25/22 06/10/25 06/11/25 History tablet,extended release 24 hr Diabetic Shoes with 3 pairs of #1 ea 02/07/23 06/09/25 Unknown Rx inserts aripiprazole 10 mg tablet 10 mg PO DAILY 06/08/23 06/10/25 06/11/25 History conjugated estrogens 1.25 mg 2.5 mg PO DAILY 06/08/23 06/10/25 06/10/25 History tablet (Premarin) cam walker #1 ea 10/04/24 05/12/25 Unknown Rx metformin 1,000 mg tablet 1,000 mg PO BID 05/12/25 06/10/25 06/11/25 History biotin 10,000 mcg chewable tablet 10,000 mcg PO DAILY 06/10/25 06/10/25 06/10/25 History (Hair, Skin and Nails (biotin)) bupropion HCl 150 mg tablet,12 hr 150 mg PO BID 06/10/25 06/10/25 06/10/25 History sustained-release irbesartan 75 mg tablet 75 mg PO DAILY 06/10/25 06/10/25 06/10/25 History multivitamin with iron 1 tab PO DAILY 06/10/25 06/10/25 05/20/25 History topiramate 50 mg tablet 100 mg PO BID 06/10/25 06/10/25 06/11/25 History hydrocodone 5 mg-acetaminophen 325 1 tab PO Q6H PRN pain 5 days #20 06/11/25 Unknown Rx mg tablet tabs Allergies Allergy/AdvReac Type Severity Reaction Status Date / Time adhesive tape Allergy ALGY-Rash Verified 06/10/25 14:11 cefdinir Allergy ALGY-Hives Verified 06/10/25 14:11 etodolac Allergy Unknown Verified 06/10/25 14:11 lidocaine Allergy ALGY-Hives Verified 06/10/25 14:11 ondansetron (From Zofran) Allergy ALGY-Hives Verified 06/10/25 14:11 pseudoephedrine (From Allergy ALGY-Hives Verified 06/10/25 14:11 Sudafed) Sulfa (Sulfonamide Allergy Unknown Verified 06/10/25 14:11 Antibiotics) sulfamethazine Allergy ALGY-Hives Verified 06/10/25 14:11 Current Medications Generic Name Dose Route Start Last Admin Trade Name Juanita PRN Reason Stop Dose Admin Sodium Chloride 1,000 mls @ 30 mls/hr 06/11/25 08:45 06/11/25 10:00 Sodium Chloride 0.9% IV 06/12/25 08:44 30 mls/hr .Q24H CRISTIN Administration PFSH Anesthesia Medical History (Updated 06/09/25 @ 16:34 by KIYA Monzon) PCR DNA positive for HSV2 (~05/2022) No pertinent past medical history neghx: dm,thyroid,dvt/pe PCP: Dr. Mckeon Hypertension Meningitis due to bacteria CSF leak from nose Mucocele of frontal sinus Fibromyalgia Surgical History Hx of removal of cyst Removed from L breast Hx of tubal ligation 10/27/2004, tubal ligation. Performed by Dr. Reji Alan at [facility] in [place], [place]. Hx of laparoscopy 1----04/25/2006--Right ovarian cystectomy. Diagnosis: Pelvic pain, ruptured ovarian cyst. Performed by Dr. Shemar Lomax at [facility] in [place], [place] 2-----11/22/2007, Lysis of adhesions with left salpingectomy. Diagnosis: Chronic pelvic pain. Performed by Dr. Reji Alan at [facility] in [place], [place]. 3------ 11/10/2008 Left salpingo-oophorectomy with lysis of adhesions. Diagnosis: Chronic pelvic pain. Performed by Dr. Reji Alan at [facility] in [place], [place]. 4------ Diagnostic. No significant findings found. Diagnosis: Chronic pelvic pain. Performed by Dr. Reji Alan at [facility] in [place], [place]. Hx of dilation and curettage (~01/17/05) 01/17/2005--Diagnoses: Delayed bleeding (6 weeks). Performed by Dr. Reji Alan at [facility] in [place], [place]. History of surgery of head (~03/10/22) leaking spinal fluid through nose, correct hemorrhage Hx of hysterectomy (~07/31/06) Laparoscopic assisted vaginal hysterectomy with right salpingo-oophorectomy and destruction of left ovarian cyst. Diagnosis: Chronic pelvic pain. Performed by Dr. Reji Alan at [facility] in [place], [place] S/P matrixectomy of toe History of colonoscopy with polypectomy History of appendectomy History of tonsillectomy History of oral surgery History of endoscopic sinus surgery Family History Family/Other Breast cancer Paternal Aunt--dx age unknown Grandmother Breast cancer Maternal--dx age unknown Denies family history of Colon cancer Ovarian cancer Diabetes Heart disease Hypercholesteremia Hypertension Uterine cancer Thyroid disease Stroke Social History Smoking and tobacco/nicotine status: former use of tobacco/nicotine Substance/Drug Use: never Anesthesia Procedures Nerve Block Nerve Block 1: Main Anesthesia: general anesthesia Time Out Performed: Yes Consent: requested by attending/covering physician, from patient, from other, risks and benefits reviewed and patient agrees to proceed Nerve block location: interscalene (L) Anesthesia monitors applied: pulse oximetry, EKG, BP cuff and oxygen Anesthetic Used: ropivicaine 0.5% (15 ml) and with decadron ( 3mg) Ultrasound used to: recognize landmarks, visualize and ID brachial plexus, in supraclavicular region and visualize and ID interscalene groove Nerve Stimulator Used?: No Interscalene/Femoral BLK: 2 stimuplex 22 g needle used for position and inplane approach, visualize local anesthetic spread and no vascular puncture identified Injection: neg aspiration of heme Patient Tolerated Procedure: well Complications: none Additional Comments: states got hives after a delia block, but has had lidocaine multiple other times with no issues
--- NOTE | 2025-06-11 10:54 | SUR.PREOP ---
10:30 LEFT INTRASCALENE NERVE BLOCK PERFORMED USING 15ml OF 0.5% ROPIVACAINE AND 2mg DECADRON. PT ON MOTOR VEHICLE FIELD REPRESENTATIVE SHOWING NSR. TOLERATED PROCEDURE WELL.
--- NOTE | 2025-06-11 11:44 | W.PM.OPSUD ---
Surgery/Procedure H&P Update DATE OF PROCEDURE: June 11, 2025 DATE H&P PERFORMED: 05/12/25 H&P UPDATE INFORMATION: I have reviewed H&P completed within last 30 days, I have examined patient prior to procedure and No changes to prior documentation PREOP DIAGNOSIS: Left shoulder AC joint arthritis, cuff impingement, biceps tendinitis, suba PRIMARY INDICATION FOR PROCEDURE: Left shoulder AC joint arthritis, subacromial impingement, biceps tendinitis, glenohumeral joint arthritis calcific tendinitis and rotator cuff tendinitis PLANNED PROCEDURE: Operation Date: 06/11/25 10:45 Proposed Procedures p shoulder diagnostic and surgical arthroscopy and calcific tendonitis excision(Left) - Jose Jordan DO s Arthroscopic Shoulder Subacromial Decomp Arthroscopic Shoulder Subacromial Decompression(Left) - DO lluvia Crane Arthroscopic Distal Clavicle Resection Arthroscopic AC Joint Resection(Left) - DO lluvia Crane rotator cuff debridement versus repair(Left) - DO lluvia Crane possible biceps tenotomy versus tenodesis(Left) - Jose Jordan DO
--- NOTE | 2025-06-11 13:50 | W.PM.BPON ---
Date of Procedure: [June 11, 2025] Surgeon: [Dr. Jordna, DO] Interior Design Principal(s): [Jori Jordan PA-C] Procedure(s) performed: [Left shoulder diagnostic and surgical arthroscopy Labral debridement Calcific tendinosis excision AC joint resection Rotator cuff repair (small) Subacromial decompression] Findings of the procedure(s): [Left shoulder show labral tearing calcific tendinosis, subacromial bursitis, AC joint arthritis and small rotator cuff tear. Procedure went well and his plan] Estimated blood loss: [5] Specimen(s) removed: [N/A] Post-operative diagnosis: [Left shoulder show labral tearing calcific tendinosis, subacromial bursitis, AC joint arthritis and small rotator cuff tear]
--- NOTE | 2025-06-11 13:53 | PM.PACU ---
PACU note Narrative: Patient is a 44-year-old female just underwent a left shoulder arthroscopy. Patient transferred to PACU in stable condition. Pain is well controlled. shoulder Dressing on , dry and in place. Patient's operative arm is in a shoulder immobilizer. Patient is awake and alert and able to respond to my questions accordingly. Patient's fingers are warm with good perfusion. Normal cap refill under 2 seconds. Unable to assess further range of motion in arm due to sling. Unable to assess sensation due to residual localized anesthetic. Exam: awake Disposition: discharged
--- NOTE | 2025-06-11 17:50 | PM.OP ---
Operative Report Date of procedure: June 11, 2025 Surgeon: Jose Jordan DO [employer] Worker: Jori Jordan PA-C: PA was necessary for assistance in this case with shoulder positioning to execute the procedure, assistance with instrumentation, as well as implant fixation when necessary, assist with wound closure and dressing application. Procedure: Preoperative diagnosis: Left shoulder AC joint arthritis, subacromial impingement, biceps tendinitis, glenohumeral joint arthritis calcific tendinitis and rotator cuff tendinitis Post-op diagnosis:? Left?shoulder?labral fraying Left?shoulder?rotator cuff tear Left?shoulder?AC joint arthritis Left?shoulder?subacromial bursitis/impingement Left shoulder rotator cuff calcific tendinitis Procedure done: Left?shoulder?diagnostic and surgical arthroscopy with arthroscopic rotator cuff repair(small) Left?shoulder?diagnostic and surgical arthroscopy calcific tendinitis excision Left?shoulder?diagnostic and surgical arthroscopy labral debridement Left?shoulder?diagnostic and surgical arthroscopy acromioclavicular joint resection Left?shoulder?diagnostic and surgical arthroscopy subacromial decompression (acromioplasty and bursectomy) Surgeon: Jose Jordan DO Estimated blood loss: [5]mL IV fluids: See anesthesia record Implants: Arthrex 4.75 swivel lock Arthrex scorpion and suture tape Complications: None Condition: stable Disposition: same day Brief History: Patient been seen and worked up in the outpatient setting for Left?shoulder?pain.? Pt had an MRI which showed findings below.? Patient's failed conservative treatment and has weakness.? We talked about treatment options far as nonoperative and operative intervention..? We talked about risk benefits complication alternatives surgical nonsurgical treatment options.? Understanding risk of surgery pt agrees to proceed with surgical intervention for left shoulder diagnostic and surgical arthroscopy with subacromial decompression, AC joint resection, calcific tendonitis excision, rotator cuff debridement versus repair, possible biceps tenotomy versus tenodesis .? All questions have been answered at this time.? Patient elects proceed with surgery and consent obtained in preop. MR/MR shoulder LT wo con* [id number] IMPRESSION: 1. Advanced degenerative arthritis AC joint with fluid and edema. Subacromial spurring with impingement on the rotator cuff. 2. Dense calcific tendinitis distal supraspinatus and infraspinatus with mild chronic thinning. 3. Rotator cuff is otherwise intact. 4. Biceps tendon appears intact within the bicipital groove. Intra-articular biceps tendon appears intact. 5. Severe degenerative narrowing of the glenohumeral articulation advanced for patient this age. This is progressed since 2020 Procedure: Patient seen evaluated in the preoperative holding area.? Consent reviewed and signed with patient.? Once again reviewed patient's MRI results as well as? planned surgical intervention.? Correct extremity marked.? Patient seen evaluated by anesthesia department received regional anesthesia.? Once ready for surgery was taken back to the operative suite.? Patient then subsequently underwent anesthesia per the anesthesia department was transported onto the OR table.? Patient was then placed into a lateral decubitus position with a beanbag and was appropriately secured to the bed.? All bony prominences well-padded.? Patient then had the Left upper extremity was then prepped and draped in standard orthopedic fashion.? Patient received appropriate preoperative antibiotics.? Final timeout performed. The Left upper extremity was then held in hanging from traction utilizing sterile technique.? Next started with standard diagnostic and surgical arthroscopy with posterior portal position introduced arthroscope into the glenohumeral joint.? Visualized the glenohumeral joint I then introduced a spinal needle within the rotator cuff interval to confirm appropriate anterior portal placement.? Once this was confirmed I then made my small incision and then introduced my arthroscopic shaver into the glenohumeral joint.? After thorough debridement was clearly evident patient had a stable biceps tendon anchor no evidence of SLAP tearing and no tendinitis around the bicep tendon. Bicep tendon was subsequently left alone with no tenotomy or tenodesis performed. Next I evaluated the subscapularis tendon which was intact and no evidence of tear. ?Next there was labral fraying posteriorly which I subsequently utilized a a arthroscopic shaver and thermal wand to perform a labral debridement.? This point time I then visualized the glenohumeral joint.? The glenohumeral joint was found to have grade 1? chondromalacia throughout.? Axillary pouch was free of loose bodies from viewing the posterior portal.? Next a visualized the rotator cuff superiorly and there was found to be a small undersurface tearing of the supraspinatus tendon.? I utilized a spinal needle to astrid this location.? ?This completed my work within the glenohumeral joint all fluid was suctioned free of the joint.? ?Next I reintroduced the arthroscope posteriorly.? And went to the subacromial space.? I established my lateral working portal at the site of which my spinal needle was marking of the rotator cuff tear.? Thermal wand was then introduced laterally and then I subsequently performed extensive bursectomy of the subacromial space.? Patient had a large anterior bone spur.? At this point time I proceeded with my AC joint resection thermal wand was used and track to the anterior edge of the acromion and then tracked all the way to the AC joint.? Once identified the AC joint this was very arthritic in nature.? Thermal wand was placed anteriorly to establish appropriate plane for AC joint resection.? Once appropriate margins and anterior inferior and anterior capsule was released I then introduced arthroscopic shaver and a bur and performed AC joint resection of both the acromion to cope plane at the AC joint and a distal clavicle resection was then performed totaling 1 cm in size and was confirmed.? This completed my AC joint resection and I then introduced the arthroscopic shaver laterally while continuing to view posteriorly.? I then performed an acromioplasty to complete my subacromial decompression prior to addressing rotator cuff At this point in time I then subsequently more the spinal needle was utilized a spinal needle to fenestrate around the supraspinatus where calcific tendinitis appeared to be evident. I then utilized a blunt probe and evacuated/excised all of the calcific tendinitis With blunt probe and shaver. Next the arthroscopic shaver was then used previous spinal needle spot that is marked the small hole in the rotator cuff this was consistent with a small full-thickness tear.? Given the small size this did not need a medial and lateral row configuration as result my plan was for a horizontal mattress stitch with a single lateral row anchor.? As result I loaded and Arthrex scorpion with fiber tape and subsequently.? A horizontal mattress purchase appropriately spaced to the small tear of the supraspinatus tendon.? At this point in time and then introduced a shaver to debride the rotator cuff footprint and decorticate the footprint in preparation for repair, next I marked by swivel lock position.? Fiber tape was then loaded into a 4.75 swivel lock I then subsequently punched and then subsequently placement 4.75 swivel lock while maintaining appropriate tension and repair of rotator cuff and this was advanced with excellent fixation I then had a final confirmation of appropriate repair of the supraspinatus rotator cuff tendon tear.? Sutures were then cut with an arthroscopic suture cutter and subsequently evaluated the rotator cuff repair.? Repair was found to be satisfactory?shoulder?was taken through range of motion and the repair moved as a unit with no evidence of loss of fixation. ?I then switched the arthroscope to the lateral portal to confirm this tension-free repair.? I took the?shoulder?through range of motion and the rotator cuff repair was stable and moved as a unit. ?Next I then introduced the arthroscopic shaver posteriorly to complete my subacromial decompression appropriate complaining all the way up to the lateral edge of the acromion.? This completed the surgery.? All fluid was suctioned from the?shoulder.? All instruments were removed.? The lateral incision was then closed with nylon stitches.? As well as the portal sites closed with portal nylon stitches.? Xeroform 4 x 4's ABD and tape was then applied to the Left?shoulder?and was placed into a?shoulder?abduction pillow sling for rotator cuff repair.? Patient was then awakened from anesthesia and then taken back to PACU in stable condition.? Patient tolerated procedure without any issues. Disposition: Patient taken back in stable condition recovering well.? Dressings on in place clean dry and intact.? Will be nonweightbearing to the Left upper extremity.? Follow rotator cuff repair protocol.? Patient to follow-up with Ortho in the office in 2 weeks.? Patient will receive appropriate discharge instruction as well as pain medication postoperatively.? All questions answered.? We will contact the office for any questions or concerns.
== END 2025-06-11 15:30 | disposition home or self-care (01) ==
PROVIDERS: PCP Family Medicine; Visit Provider Student in an Organized Health Care Education/Training Program
PROC: (CPT 29805; principal; 2025-06-11 10:45)
PROC: (CPT 29826; 2025-06-11 10:45)
PROC: (CPT 29824; 2025-06-11 10:45)
PROC: (CPT 29827; 2025-06-11 10:45)
PROC: (CPT 29827; 2025-06-11 10:45)
DX: M75.42 Impingement syndrome of left shoulder (principal); M75.102 Unspecified rotator cuff tear or rupture of left shoulder, not specified as traumatic; M19.012 Primary osteoarthritis, left shoulder; M75.32 Calcific tendinitis of left shoulder; J45.909 Unspecified asthma, uncomplicated; E66.01 Morbid (severe) obesity due to excess calories; Z68.36 Body mass index [BMI] 36.0-36.9, adult; E11.9 Type 2 diabetes mellitus without complications; Z79.84 Long term (current) use of oral hypoglycemic drugs; I10 Essential (primary) hypertension; M79.7 Fibromyalgia; Z87.891 Personal history of nicotine dependence
CPT/HCPCS: 29827; 29826; 29824; 36416; 82962; C1713; J0131; J0169; J1100; J1200; J1885; J2250; J2405; J2704; J2795; J3010; J3373; J3490; J7030; J9999

== ENCOUNTER → 2025-06-24 07:49 | Outpatient (BNVA) | payer MEDICAID, SELFPAY | PROVIDERS: PCP Family Medicine; Visit Provider Student in an Organized Health Care Education/Training Program | DX: Z98.890 Other specified postprocedural states (principal) | CPT/HCPCS: 99024 ==

== ENCOUNTER 2025-07-20 07:04 | Outpatient (CLI) | payer MEDICAID, SELFPAY ==
--- NOTE | 2025-07-20 07:15 | MRR_ITS ---
PROCEDURE INFORMATION: Exam: MR Right Upper Extremity Joint Without Contrast; Wrist Exam date and time: 07/20/2025 7:22 AM Age: 44 years old Clinical indication: Injury or trauma; Sprain or strain; Injury details: Lifting injury x 6 weeks; Prior surgery; Surgery date: 6+ months; Surgery type: /history of cyst removal from the right wrist; Additional info: Rule out acute/ chronic fracture TECHNIQUE: Imaging protocol: Magnetic resonance imaging of the right upper extremity without contrast. Exam focused on the wrist. COMPARISON: CR XR wrist RT min 3V* [id number] 06/09/2025 4:07 PM FINDINGS: Bones/joints: Evaluation is degraded by prominent artifact related to technical factors and patient motion. No acute fracture or dislocation. The known punctate/subcentimeter dystrophic calcifications adjacent to the dorsum of the proximal carpal row are better seen on the 06/09/2025 radiographs. Within the limits of this study's limitations, no definite donor site identified to suggest a remote fracture. Scapholunate ligament: Poorly visualized; no obvious abnormality Lunotriquetral ligament: Poorly visualized; no obvious abnormality Triangular fibrocartilage complex: Poorly visualized; no obvious abnormality Flexor compartment tendons: Unremarkable. No tear. Extensor compartment tendons: 14 x 9 mm T2 bright/T1 dark cystic appearing lesion situated at the extensor carpi radialis brevis insertion site onto the basilar 3rd metacarpal; this may represent stenosing tenosynovitis versus a small ganglion cyst. No tendon tear is appreciated in this region. Soft tissues: See Extensor compartment tendons finding. MR/MR wrist RT wo con* [id number] IMPRESSION: 1. No findings of recent or remote fracture, as above. 2. The known punctate/subcentimeter dystrophic calcifications adjacent to the dorsum of the proximal carpal row are better seen on the 06/09/2025 radiographs. 3. 14 x 9 mm T2 bright/T1 dark cystic appearing lesion situated at the extensor carpi radialis brevis insertion site onto the basilar 3rd metacarpal; this may represent stenosing tenosynovitis versus a small ganglion cyst. No tendon tear is appreciated in this region.
== END 2025-07-20 07:05 | disposition home or self-care (01) ==
LOC: RAD 07:05
PROVIDERS: PCP Family Medicine; Visit Provider Physician Assistant
DX: S62.111A Displaced fracture of triquetrum [cuneiform] bone, right wrist, initial encounter for closed fracture (principal); X58.XXXA Exposure to other specified factors, initial encounter
CPT/HCPCS: 73221

== ENCOUNTER → 2025-07-22 13:38 | Outpatient (BNVA) | payer MEDICAID, SELFPAY | PROVIDERS: PCP Family Medicine; Visit Provider Student in an Organized Health Care Education/Training Program | DX: Z98.890 Other specified postprocedural states (principal) | CPT/HCPCS: 99024; 99213 ==

== ENCOUNTER → 2025-08-10 07:51 | Outpatient (BNVA) | payer MEDICAID, SELFPAY | PROVIDERS: PCP Family Medicine; Referring Provider Family Medicine; Visit Provider Anesthesiology Pain Medicine | DX: M47.816 Spondylosis without myelopathy or radiculopathy, lumbar region (principal) | CPT/HCPCS: 99204 ==

== ENCOUNTER → 2025-08-12 10:19 | Outpatient (BNVA) | payer MEDICAID, SELFPAY | PROVIDERS: PCP Family Medicine; Visit Provider Student in an Organized Health Care Education/Training Program | DX: M25.531 Pain in right wrist (principal); Z51.89 Encounter for other specified aftercare; M77.8 Other enthesopathies, not elsewhere classified | CPT/HCPCS: 99213 ==

== ENCOUNTER → 2025-09-09 14:12 | Outpatient (BNVA) | payer MEDICAID, SELFPAY | PROVIDERS: PCP Family Medicine; Visit Provider Student in an Organized Health Care Education/Training Program | DX: Z98.890 Other specified postprocedural states (principal) | CPT/HCPCS: 73030; 99213 ==